=== PATIENT | male | born 1980 | race Caucasian/White ===

== ENCOUNTER 2017-08-11 03:24 | Inpatient (IN) | payer OTHER ==
[~2017-08-11] VITALS: Ht 185.4 cm; Wt 81.9 kg
[2017-08-11] VITALS (19 sets, daily range): BP systolic 90–112; BP diastolic 43–71; PULSE 44–104; RESP 16–20; TEMP 98.1–100.1; O2SAT 92–100
[2017-08-11] MEDS ORDERED: CYCLOBENZAPRINE HCL 10 MG TAB PO ONE (03:45)
[2017-08-11] MEDS ORDERED: KETOROLAC TROMETHAMINE 30 MG/ML (IVP) VIAL IV PUSH ONE (03:45)
[2017-08-11] MEDS ORDERED: SODIUM CHLOR 0.9% 1000 ML INJ 1,000 ML IV ONE (03:45)
--- NOTE | 2017-08-11 04:06 | RADRPT ---
EXAM DATE/TIME: 08/11/2017 03:51 [facility] COMPARISON: No previous studies available for comparison. INDICATIONS : Chest pain. MEDICAL HISTORY : None. SURGICAL HISTORY : None. ENCOUNTER: Initial ACUITY: 1 day PAIN SCORE: 8/10 LOCATION: Bilateral upper chest FINDINGS: The cardiac silhouette is enlarged in transverse diameter. There is subsegmental atelectasis in the l eft base. A small right sided effusion is present. There is an abnormal right heart border which may be related to enlarged pulmonary artery. CT scan is recommended for further evaluation if clinically indicated. CONCLUSION: 1. Cardiomegaly 2. Left lower lobe atelectasis versus pneumonia. 3. Small right effusion 4. Abnormal right heart border is above. CT scan is recommended for further evaluation if clinically indicated. José Miguel Hassan MD on August 11, 2017 at 4:01 Board Certified Radiologist. This report was verified electronically.
[2017-08-11 04:12] LABS: AUTOMATED NEUTROPHIL # 11.8 TH/MM3 (1.8-7.7); BASOPHIL # 0.1 TH/MM3 (0-0.2); EOSINOPHIL # 0.1 TH/MM3 (0-0.4); EOSINOPHIL % 0.4 % (0.0-4.0); HEMATOCRIT 23.2 % (39.0-51.0); LYMPH % 6.2 % (9.0-44.0); LYMPHOCYTE # 0.9 TH/MM3 (1.0-4.8); MEAN PLATELET VOLUME 7.3 FL (7.0-11.0); MONO % 12.3 % (0.0-8.0); MONOCYTE # 1.8 TH/MM3 (0-0.9); NEUT % 80.1 % (16.0-70.0); PLATELET COUNT 301 TH/MM3 (150-450); RED BLOOD COUNT 3.57 MIL/MM3 (4.50-5.90); RED CELL DISTRIBUTION WIDTH 16.3 % (11.6-17.2); WHITE BLOOD COUNT 14.7 TH/MM3 (4.0-11.0)
[2017-08-11 04:13] LABS: MEAN CORPUSCULAR HGB CONC 29.2 % (32.0-36.0)
[2017-08-11 04:14] LABS: HEMOGLOBIN 6.8 GM/DL (13.0-17.0)
[2017-08-11] MEDS ORDERED: SODIUM CHLOR 0.9% 250 ML INJ 250 ML IV ONE (04:15)
[2017-08-11 04:23] LABS: CHLORIDE 103 MEQ/L (98-107); SODIUM (NA) 137 MEQ/L (136-145)
[2017-08-11 04:26] LABS: ALBUMIN 3.5 GM/DL (3.4-5.0); BICARBONATE 26.8 MEQ/L (21.0-32.0); CALCIUM 8.2 MG/DL (8.5-10.1)
[2017-08-11 04:27] LABS: BLOOD UREA NITROGEN 24 MG/DL (7-18); GLUCOSE,RANDOM 133 MG/DL (74-106)
[2017-08-11 04:29] LABS: ALT (GPT) 17 U/L (12-78)
[2017-08-11 04:30] LABS: AST (GOT) 13 U/L (15-37); CREATININE 0.63 MG/DL (0.60-1.30); GLOMERULAR FILTRATION RATE 146 ML/MIN (>89)
[2017-08-11 04:31] LABS: TOTAL BILIRUBIN ADULT 0.4 MG/DL (0.2-1.0); TOTAL PROTEIN 6.8 GM/DL (6.4-8.2)
[2017-08-11 04:32] LABS: ALKALINE PHOSPHATASE 41 U/L (45-117)
[2017-08-11 04:34] LABS: TROPONIN I LESS THAN 0.02 NG/ML (0.02-0.05)
[2017-08-11 04:53] LABS: OVALOCYTES 1+ (NORMAL)
[2017-08-11] MEDS ORDERED: IOHEXOL 350 MG/ML 10 ML VIAL (for RAD DIAG) IVCONTRAST ONE ×2 (04:54→17:52)
--- NOTE | 2017-08-11 05:10 | PD ---
HPI Chief Complaint: Musculoskeletal Complaint Time Seen by Provider: 03:41 Travel History International Travel<30 days: No Contact w/Intl Traveler<30days: No Traveled to known affect area: No History of Present Illness HPI Patient is a 36 year old male who comes in complaining of shoulder pain. He says his shoulders have been hurting for the past few days. He went to an orthopedic surgeon who told him he had "severe bicep tendonitis" and injected both shoulders with steroids. He says yesterday he felt a little better, but today he felt much worse. He also complains of chest pain and chills. He says he has some shortness of breath and overall feels badly. He says he thinks he had a fever, but has not taken his temperature. Nothing relieves his symptoms. PFSH Past Medical History Tetanus Vaccination: Unknown Influenza Vaccination: No Social History Alcohol Use: No Tobacco Use: Yes (.5 PPD) Substance Use: Yes (Marijuana nightly) Allergies-Medications (Allergen,Severity, Reaction): Coded Allergies: No Known Drug Allergies (Verified Allergy, Unknown, 08/11/17) Reported Meds & Prescriptions Reported Meds & Active Scripts Active Reported Buspirone (Buspirone HCl) 15 Mg Tab 15 Mg PO BID Methylprednisolone Dosepak (Methylprednisolone) 4 Dspk 4 Mg PO DIRECTED Per Pharmacist Direction Celebrex (Celecoxib) 200 Mg Cap 200 Mg PO BID Levothyroxine (Levothyroxine Sodium) 88 Mcg Tab 88 Mcg PO DAILY Lexapro (Escitalopram Oxalate) 20 Mg Tab 20 Mg PO DAILY Review of Systems Except as stated in HPI: all other systems reviewed are Neg General / Constitutional: Positive: Fever HENT: No: Headaches, Lightheadedness Cardiovascular: Positive: Chest Pain or Discomfort Respiratory: Positive: Cough Gastrointestinal: Positive: Nausea, No: Diarrhea, Abdominal Pain Genitourinary: No: Flank Pain Musculoskeletal: Positive: Myalgias, No: Edema Skin: No Rash, No Change in Pigmentation Neurologic: No: Weakness, Dizziness Physical Exam Narrative GENERAL: Awake and alert, in no acute distress. SKIN: Focused skin assessment warm/dry. HEAD: Atraumatic. Normocephalic. EYES: Pupils equal and round. No scleral icterus. ENT: Mucous membranes pink and moist. NECK: Trachea midline. No JVD. CARDIOVASCULAR: Regular rate and rhythm. No murmur appreciated. RESPIRATORY: No accessory muscle use. Clear to auscultation. Breath sounds equal bilaterally. GASTROINTESTINAL: Abdomen soft, non-tender, nondistended. MUSCULOSKELETAL: No obvious deformities. No clubbing. No cyanosis. No edema. NEUROLOGICAL: Awake and alert. No obvious cranial nerve deficits. Motor grossly within normal limits. Normal speech. PSYCHIATRIC: Appropriate mood and affect; insight and judgment normal. Data Data Last Documented VS Vital Signs Date Time Temp Pulse Resp B/P (MAP) Pulse Ox O2 Delivery O2 Flow Rate FiO2 08/11/17 05:10 76 16 104/68 (80) 98 Room Air 08/11/17 03:28 98.9 Orders Orders Iv Access Insert/Monitor (08/11/17 03:45) Complete Blood Count With Diff (08/11/17 03:45) Comprehensive Metabolic Panel (08/11/17 03:45) Creatine Kinase (Cpk) (08/11/17 03:45) Troponin I (08/11/17 03:45) Electrocardiogram (08/11/17 ) Influenzae A/B Antigen (08/11/17 03:45) Chest, Pa & Lat (08/11/17 ) Sodium Chlor 0.9% 1000 Ml Inj (Ns 1000 M (08/11/17 03:45) Ketorolac Inj (Toradol Inj) (08/11/17 03:45) Cyclobenzaprine (Flexeril) (08/11/17 03:45) Ct Pulmonary Angiogram (08/11/17 04:12) Type And Screen (08/11/17 04:15) Red Blood Cells (Rbc) (08/11/17 04:15) Blood Product Administration (08/11/17 04:15) Sodium Chlor 0.9% 250 Ml Inj (Ns 250 Ml (08/11/17 04:15) Iohexol 350 Inj (Omnipaque 350 Inj) (08/11/17 04:54) Morphine Inj (Morphine Inj) (08/11/17 05:30) Act Partial Throm Time (Ptt) (08/11/17 05:34) Prothrombin Time / Inr (Pt) (08/11/17 05:34) Echo Transesophageal (08/11/17 ) Consult Cardiology (08/11/17 ) Admit Order (Ed Use Only) (08/11/17 ) Labs Laboratory Tests Test 08/11/17 04:00 White Blood Count 14.7 TH/MM3 Red Blood Count 3.57 MIL/MM3 Hemoglobin 6.8 GM/DL Hematocrit 23.2 % Mean Corpuscular Volume 65.0 FL Mean Corpuscular Hemoglobin 19.0 PG Mean Corpuscular Hemoglobin Concent 29.2 % Red Cell Distribution Width 16.3 % Platelet Count 301 TH/MM3 Mean Platelet Volume 7.3 FL Neutrophils (%) (Auto) 80.1 % Lymphocytes (%) (Auto) 6.2 % Monocytes (%) (Auto) 12.3 % Eosinophils (%) (Auto) 0.4 % Basophils (%) (Auto) 1.0 % Neutrophils # (Auto) 11.8 TH/MM3 Lymphocytes # (Auto) 0.9 TH/MM3 Monocytes # (Auto) 1.8 TH/MM3 Eosinophils # (Auto) 0.1 TH/MM3 Basophils # (Auto) 0.1 TH/MM3 CBC Comment AUTO DIFF Differential Comment AUTO DIFF CONFIRMED Platelet Estimate NORMAL Platelet Morphology Comment NORMAL Ovalocytes 1+ Blood Urea Nitrogen 24 MG/DL Creatinine 0.63 MG/DL Random Glucose 133 MG/DL Total Protein 6.8 GM/DL Albumin 3.5 GM/DL Calcium Level 8.2 MG/DL Alkaline Phosphatase 41 U/L Aspartate Amino Transf (AST/SGOT) 13 U/L Alanine Aminotransferase (ALT/SGPT) 17 U/L Total Bilirubin 0.4 MG/DL Sodium Level 137 MEQ/L Potassium Level 3.6 MEQ/L Chloride Level 103 MEQ/L Carbon Dioxide Level 26.8 MEQ/L Anion Gap 7 MEQ/L Estimat Glomerular Filtration Rate 146 ML/MIN Total Creatine Kinase 32 U/L Troponin I LESS THAN 0.02 NG/ML [facility] Medical Decision Making Medical Screen Exam Complete: Yes Emergency Medical Condition: Yes Medical Record Reviewed: Yes Interpretation(s) ECG shows NSR at 88, no ST elevation or depression, incomplete RBBB. Differential Diagnosis muscle strain vs pneumonia vs influenza Narrative Course Patient is a 36-year-old male who comes in complaining of severe shoulder pain as well as body aches and shortness of breath with chest pain. Exam shows no acute abnormalities. IV established, labs sent. Blood pressure is on the lower side, 97 systolic. Given IV fluids with some improvement of his blood pressure. Given Toradol and Flexeril for his shoulder pain. Chest x-ray was performed, appeared abnormal and CT of the chest was recommended. The CT of the chest performed showed a large pericardial effusion. Labs are concerning for a hemoglobin of 6.8. Blood transfusion was ordered. He says he was admitted to [facility] several months ago with pneumonia and anemia and required a transfusion. He reports then having endoscopy and colonoscopy and no source for the anemia was ever found. I spoke with Dr. Willett of CT surgery who suggests transfer to the [facility], stat echo and eventual drainage of the fluid. Patient admitted to the ICU. Diagnosis Primary Impression: Pericardial effusion Additional Impression: Anemia Qualified Codes: D64.9 - Anemia, unspecified Abbey Alcaraz MD Aug 11, 2017 05:10
[2017-08-11] MEDS ORDERED: MORPHINE SULFATE 2 MG/ML INJ IV PUSH ONE ×2 (05:30→07:45)
--- NOTE | 2017-08-11 05:32 | RADRPT ---
EXAM DATE/TIME: 08/11/2017 04:37 [facility] COMPARISON: CHEST PA & LAT, August 11, 2017, 3:51. INDICATIONS : Chest pain IV CONTRAST: 50 cc cc \ IV RADIATION DOSE: 39.2 CTDIvol (mGy) MEDICAL HISTORY : None SURGICAL HISTORY : 9 ENCOUNTER: Initial ACUITY: One day PAIN SCALE: 8/10 LOCATION: Chest8 TECHNIQUE: Volumetric scanning of the chest was performed using a pulmonary embolism protocol MIP images were re constructed. Using automated exposure control and adjustment of the mA and/or kV according to patien t size, radiation dose was kept as low as reasonably achievable to obtain optimal diagnostic quality images. DICOM format image data is available electronically for review and comparison. Follow-up recommendations for detected pulmonary nodules are based at a minimum on nodule size and pa tient risk factors according to Fleischner Society Guidelines. FINDINGS: Examination of the pulmonary vasculature demonstrates good filling of the main, lobar and segmental b ranches. There are no filling defects to suggest pulmonary embolism. Multiplanar reconstructions are also unremarkable. No pulmonary nodules are identified. A small right sided effusion is present. There is subsegmental a telectasis in the right base. There is a large pericardial effusion displacing the heart anteriorly a nd along the right heart border. This would be amenable to thoracentesis. CONCLUSION: 1. No evidence of pulmonary embolism. 2. Large pericardial effusion. José Miguel Hassan MD on August 11, 2017 at 5:25 Board Certified Radiologist. This report was verified electronically.
[2017-08-11] MEDS ORDERED: LEXA20TA PO (05:40)
[2017-08-11] MEDS ORDERED: CELE200C PO (05:42)
[2017-08-11] MEDS ORDERED: BUSP15TA PO (05:42)
[2017-08-11] MEDS ORDERED: LEVO88TA2 PO (05:42)
[2017-08-11] MEDS ORDERED: METH4PAK PO (05:42)
[2017-08-11 06:01] LABS: INTERNATIONAL NORMALIZED RATIO 1.1 RATIO; PROTHROMBIN TIME - PATIENT 11.3 SEC (9.8-11.6)
[2017-08-11] MEDS ORDERED: BISACODYL 10 MG SUPP RECTAL PRN (06:45)
[2017-08-11] MEDS ORDERED: POTASSIUM CHLORIDE 25 MEQ EFFERVESCENT TAB PO PRN (06:45)
[2017-08-11] MEDS ORDERED: LACTULOSE SYRUP 20 GM/30 ML CUP PO PRN (06:45)
[2017-08-11] MEDS ORDERED: MAGNESIUM SULFATE INJ 4 GM in SODIUM CHLORIDE 0.9% INJ 92 ML IV PRN (06:45)
[2017-08-11] MEDS ORDERED: GLUCAGON 1 MG/ML VIAL OTHER PRN (06:45)
[2017-08-11] MEDS ORDERED: POTASSIUM CHLOR 40 MEQ PREMIX 100 ML IV PRN ×2 (06:45)
[2017-08-11] MEDS ORDERED: RESP: ALBUTEROL 2.5 MG/IPRATROPIUM 0.5 MG NEB (PRN) INH (06:45)
[2017-08-11] MEDS ORDERED: POTASSIUM PHOSPHATE MONOBASIC 500 MG TAB PO/TUBE PRN (06:45)
[2017-08-11] MEDS ORDERED: POTASSIUM PHOSPHATE MONOBASIC 500 MG TAB PO PRN (06:45)
[2017-08-11] MEDS ORDERED: SENNOSIDES 8.6 MG TAB PO PRN (06:45)
[2017-08-11] MEDS ORDERED: ACETAMINOPHEN 325 MG TAB PO PRN (06:45)
[2017-08-11] MEDS ORDERED: DEXTROSE 50% IN WATER 50 ML VIAL(D50) IV PUSH PRN (06:45)
[2017-08-11] MEDS ORDERED: POTASSIUM CHLOR 20 MEQ PREMIX 100 ML IV PRN ×2 (06:45)
[2017-08-11] MEDS ORDERED: MAGNESIUM SULFATE INJ 2 GM in SODIUM CHLORIDE 0.9% INJ 96 ML IV PRN (06:45)
[2017-08-11] MEDS ORDERED: SODIUM PHOSPHATE INJ 30 MMOL in SODIUM CHLOR 0.9% 250 ML INJ 240 ML IV PRN (06:45)
[2017-08-11] MEDS ORDERED: POTASSIUM PHOSPHATE INJ 30 MMOL in SODIUM CHLOR 0.9% 250 ML INJ 250 ML IV PRN (06:45)
[2017-08-11] MEDS ORDERED: MAGNESIUM HYDROXIDE SUSP 30 ML CUP PO PRN (06:45)
[2017-08-11] MEDS ORDERED: MISCELLANEOUS NURSING INFORMATION XX SCH (06:45)
[2017-08-11] MEDS ORDERED: MAGNESIUM OXIDE 400 MG TAB PO PRN (06:45)
[2017-08-11] MEDS ORDERED: CHLORHEXIDINE GLUCONATE 2 % 1 PACK (2 CLOTHS) TOP PRN (06:45)
[2017-08-11] MEDS ORDERED: SODIUM CHLORIDE 0.9% FLUSH 10 ML FLUSH IV FLUSH PRN (06:45)
[2017-08-11] MEDS: SODIUM CHLORIDE 0.9% FLUSH 10 ML FLUSH IV FLUSH SCH ×2 (07:39→20:37)
--- NOTE | 2017-08-11 07:41 | PD.CONS ---
HPI Consult Requested By Primary Care Physician Andrew Alonso DO History of Present Illness 36-year-old male with past medical history of hypothyroidism, biceps tendinitis , alcoholic pancreatitis, pleural effusions who presented for shoulder/neck/ chest pain. The patient states that he's been having pain in his shoulders and chest intermittently for the past several months with associated shortness of breath. He has been seeing orthopedics for the shoulder pain. He states he did have pleural effusions in the past secondary to alcoholic pancreatitis, currently recovering alcoholic. He states that yesterday he was feeling quite poorly with severe worsening of the pain as well as fever, chills, nausea and he presented to the ED. He had an abnormal chest x-ray with a chest CT recommended which showed large pericardial effusion. The patient denies any history of pericardial effusion in the past. He states he's never had an echocardiogram. He was also found to be anemic and is currently receiving transfusion, denies being on blood thinners. The patient is being transferred to the main hospital for echocardiogram and likely drainage of pericardial effusion. (Jacky Esqueda) Review of Systems Negative except as stated in history of present illness (Jacky Esqueda) Past Family Social History Allergies: Coded Allergies: No Known Drug Allergies (Verified Allergy, Unknown, 08/11/17) Past Medical History Hypothyroidism Biceps tendinitis History of alcoholic pancreatitis with associated pleural effusions Past Surgical History Endoscopy Reported Medications Reported Meds & Active Scripts Active Reported Buspirone (Buspirone HCl) 15 Mg Tab 15 Mg PO BID Methylprednisolone Dosepak (Methylprednisolone) 4 Dspk 4 Mg PO DIRECTED Per Pharmacist Direction Celebrex (Celecoxib) 200 Mg Cap 200 Mg PO BID Levothyroxine (Levothyroxine Sodium) 88 Mcg Tab 88 Mcg PO DAILY Lexapro (Escitalopram Oxalate) 20 Mg Tab 20 Mg PO DAILY Active Ordered Medications Current Medications Medications (Trade) Dose Ordered Sig/Sophie Route Start Time Stop Time Status Last Admin Sodium Chloride 250 ml @ 15 mls/hr ONCE ONCE IV 08/11/17 04:15 08/11/17 20:54 08/11/17 07:13 Sodium Chloride 1,000 ml @ 100 mls/hr Q10H IV 08/11/17 06:34 (NS Flush) 2 ml UNSCH PRN IV FLUSH 08/11/17 06:45 (NS Flush) 2 ml BID IV FLUSH 08/11/17 09:00 (Tylenol) 650 mg Q6H PRN PO 08/11/17 06:45 (Pepcid Inj) 20 mg Q12HR IV PUSH 08/11/17 09:00 (Zofran Inj) 4 mg Q6H PRN IV PUSH 08/11/17 06:45 (Duoneb Neb) 1 ampule Q4HR NEB PRN INH 08/11/17 06:45 Miscellaneous Information 1 Q361D XX 08/11/17 06:45 (Chlorhexidine 2% Cloth) 3 pack Taper DAILY@04 TOP 08/12/17 04:00 08/08/18 03:59 (Chlorhexidine 2% Cloth) 3 pack UNSCH PRN TOP 08/11/17 06:45 (Yolanda-Colace) 1 tab BID PO 08/11/17 09:00 (Milk Of Magnesia Liq) 30 ml Q12H PRN PO 08/11/17 06:45 (Senokot) 17.2 mg Q12H PRN PO 08/11/17 06:45 (Dulcolax Supp) 10 mg DAILY PRN RECTAL 08/11/17 06:45 (Lactulose Liq) 30 ml DAILY PRN PO 08/11/17 06:45 (D50w (Vial) Inj) 50 ml UNSCH PRN IV PUSH 08/11/17 06:45 (Glucagon Inj) 1 mg UNSCH PRN OTHER 08/11/17 06:45 (NovoLOG SUPPLEMENTAL SCALE) 1 ACHS SLIDING SCALE SQ 08/11/17 08:00 Potassium Chloride 100 ml @ 50 mls/hr Q2H PRN IV 08/11/17 06:45 Potassium Chloride 100 ml @ 50 mls/hr Q2H PRN IV 08/11/17 06:45 (K-Lyte Cl Eff) 50 meq UNSCH PRN PO 08/11/17 06:45 Potassium Chloride 100 ml @ 25 mls/hr UNSCH PRN IV 08/11/17 06:45 Potassium Chloride 100 ml @ 50 mls/hr Q2H PRN IV 08/11/17 06:45 Magnesium Sulfate 4 gm/Sodium Chloride 100 ml @ 50 mls/hr UNSCH PRN IV 08/11/17 06:45 (Mag-Ox) 800 mg UNSCH PRN PO 08/11/17 06:45 Magnesium Sulfate 2 gm/Sodium Chloride 100 ml @ 50 mls/hr UNSCH PRN IV 08/11/17 06:45 (K-Phos) 2,000 mg Q4H PRN PO 08/11/17 06:45 Sodium Phosphate 30 mmol/Sodium Chloride 250 ml @ 42 mls/hr UNSCH PRN IV 08/11/17 06:45 (K-Phos) 2,000 mg UNSCH PRN PO/TUBE 08/11/17 06:45 Potassium Phosphate 30 mmol/ Sodium Chloride 260 ml @ 42 mls/hr UNSCH PRN IV 08/11/17 06:45 Social History Recovering alcoholic Admits to half pack daily tobacco use (Jacky Esqueda) Physical Exam Vital Signs Vital Signs Date Time Temp Pulse Resp B/P (MAP) Pulse Ox O2 Delivery O2 Flow Rate FiO2 08/11/17 07:22 98 Nasal Cannula 2.00 08/11/17 07:18 99.1 68 16 94/45 97 08/11/17 07:17 18 08/11/17 07:16 18 08/11/17 07:07 99.1 88 18 90/43 97 08/11/17 06:56 99.1 66 18 90/43 (59) 97 Room Air 08/11/17 06:52 79 08/11/17 06:11 74 16 97/54 (68) 97 Room Air 08/11/17 05:10 76 16 104/68 (80) 98 Room Air 08/11/17 03:39 69 16 102/62 (75) 99 08/11/17 03:28 98.9 104 20 98/61 (73) 100 Physical Exam GENERAL: Well-developed well-nourished. In no acute distress. NECK: No carotid bruits. No JVD. CARDIOVASCULAR: Regular rate and rhythm. No murmur appreciated. RESPIRATORY: No accessory muscle use. Clear to auscultation. Breath sounds equal bilaterally. MUSCULOSKELETAL: No clubbing or cyanosis. No edema. NEUROLOGICAL: Awake and alert. Normal speech. Laboratory Laboratory Tests Test 08/11/17 04:00 White Blood Count 14.7 Red Blood Count 3.57 Hemoglobin 6.8 Hematocrit 23.2 Mean Corpuscular Volume 65.0 Mean Corpuscular Hemoglobin 19.0 Mean Corpuscular Hemoglobin Concent 29.2 Red Cell Distribution Width 16.3 Platelet Count 301 Mean Platelet Volume 7.3 Neutrophils (%) (Auto) 80.1 Lymphocytes (%) (Auto) 6.2 Monocytes (%) (Auto) 12.3 Eosinophils (%) (Auto) 0.4 Basophils (%) (Auto) 1.0 Neutrophils # (Auto) 11.8 Lymphocytes # (Auto) 0.9 Monocytes # (Auto) 1.8 Eosinophils # (Auto) 0.1 Basophils # (Auto) 0.1 CBC Comment AUTO DIFF Differential Comment AUTO DIFF CONFIRMED Platelet Estimate NORMAL Platelet Morphology Comment NORMAL Ovalocytes 1+ Prothrombin Time 11.3 Prothromb Time International Ratio 1.1 Activated Partial Thromboplast Time 20.4 Blood Urea Nitrogen 24 Creatinine 0.63 Random Glucose 133 Total Protein 6.8 Albumin 3.5 Calcium Level 8.2 Alkaline Phosphatase 41 Aspartate Amino Transf (AST/SGOT) 13 Alanine Aminotransferase (ALT/SGPT) 17 Total Bilirubin 0.4 Sodium Level 137 Potassium Level 3.6 Chloride Level 103 Carbon Dioxide Level 26.8 Anion Gap 7 Estimat Glomerular Filtration Rate 146 Phosphorus Level 3.3 Total Creatine Kinase 32 Troponin I LESS THAN 0.02 Thyroid Stimulating Hormone 3rd Gen 2.280 Date/Time Source Procedure Growth Status 08/11/17 04:00 Nasal Washing Influenza Types A,B Antigen (ALIYA) - Final NEGATIVE FOR FLU A AND B ANTIGEN.... Complete (Jacky Esqueda) Result Diagram: 08/11/17 0400 08/11/17 [address] Angiography 08/11/17 0412 Signed Impressions: Service Date/Time: Friday, August 11, 2017 04:37 - CONCLUSION: 1. No evidence of pulmonary embolism. 2. Large pericardial effusion. José Miguel Hassan MD Chest X-Ray 08/11/17 0000 Signed Impressions: Service Date/Time: Friday, August 11, 2017 03:51 - CONCLUSION: 1. Cardiomegaly 2. Left lower lobe atelectasis versus pneumonia. 3. Small right effusion 4. Abnormal right heart border is above. CT scan is recommended for further evaluation if clinically indicated. José Miguel Hassan MD (Jacky Esqueda) Assessment and Plan Assessment and Plan 36-year-old male with past medical history of hypothyroidism, biceps tendinitis , alcoholic pancreatitis, pleural effusions who presented for shoulder/neck/ chest pain Pleural effusion: With atypical chest pain and shortness of breath. Per ED note , patient discussed with CT surgery who recommended transfer to the main hospital for stat echocardiogram and likely drainage of effusion. Anemia: Currently receiving transfusion. Hold NSAIDs and steroids. (Jacky Esqueda) Assessment and Plan echo - small effusion. normal ef. no tamponade. no need for any intervention from cardio standpoint will sign off call with further questions (Timur Bolden MD) Jacky Esqueda Aug 11, 2017 07:41 Timur Bolden MD Aug 11, 2017 12:33
[2017-08-11] MEDS: INSULIN ASPART SUPPLEMENTAL SCALE SQ SCH ×4 (08:00→20:37)
[2017-08-11] MEDS: DOCUSATE SODIUM 50 MG/SENNA 8.6 MG TAB PO SCH ×2 (09:00→20:37)
[2017-08-11 09:42] LABS: FREE T4 1.19 NG/DL (0.76-1.46)
--- NOTE | 2017-08-11 09:45 | HHI.HP ---
HPI Service Critical Care Medicine Primary Care Physician Andrew Alonso, DO Admission Diagnosis Anemia, pericardial effusion Diagnosis: (1) Leukocytosis Diagnosis: Principal (2) Hypothyroidism Diagnosis: Secondary (3) Tobacco abuse disorder Diagnosis: Secondary (4) Depression Diagnosis: Secondary (5) Tetrahydrocannabinol (THC) use disorder, mild, abuse Diagnosis: Secondary Travel History International Travel<30 Days: No Contact w/Intl Traveler <30 Da: No Traveled to Known Affected Are: No History of Present Illness This is a 36 year old male that presented to the ED, [facility] complaining of B/L shoulder pain. Per report patient stated that his shoulders have been hurting for the past few days. He went to an orthopedic surgeon who told him he had "severe bicep tendonitis" and injected both shoulders with steroids, and provided him with a Celebrex prescription. Upon further inquiry/ evaluation at [facility], the patient noted that he had been having B/L shoulder pain for approximately 8 months. The patient's medical history is significant for pancreatitis, last hospitalized 02/2016, at [facility]. In addition, the patient's medical history includes a previous admission for anemia and he was recently hospitalized January 2017 at [facility], and received 2 units of packed red blood cells, was evaluated by GI with an EGD and colonscopy with negative findings. The patient was discharged and no further workup for the anemia was provided. After presentation to the ED, laboratory and imaging studies were performed at [place]-CT angiography chest revealed no pulmonary embolus but a large pericardial effusion at the right heart border, anemia was noted hemoglobin of 6.8, and leukocytosis 14.7. The patient received 1 unit of packed red blood cells, cardiology Dr. Bolden was consulted, CTS Dr. Willett was consulted by Dr. Alcaraz, ED physician. In addition to the patient' s history of previous episodes of anemia and pancreatitis his medical history significant for hypothyroidism, marijuana use depression, GERD and a history of EtOH abuse with last reported ETOH consumption 09/2016. The patient was stat transported to [facility]. Echo obtained results pending. Critical care medicine was consulted. History PFSH Past Medical History Tetanus Vaccination: Unknown Influenza Vaccination: No Social History Alcohol Use: No Tobacco Use: Yes (.5 PPD) Substance Use: Yes (Marijuana nightly) Allergies-Medications Allergies-Medications (Allergen,Severity, Reaction): Coded Allergies: No Known Drug Allergies (Verified Allergy, Unknown, 08/11/17) Reported Meds & Prescriptions Reported Meds & Active Scripts Active Reported Buspirone (Buspirone HCl) 15 Mg Tab 15 Mg PO BID Methylprednisolone Dosepak (Methylprednisolone) 4 Dspk 4 Mg PO DIRECTED Per Pharmacist Direction Celebrex (Celecoxib) 200 Mg Cap 200 Mg PO BID Levothyroxine (Levothyroxine Sodium) 88 Mcg Tab 88 Mcg PO DAILY Lexapro (Escitalopram Oxalate) 20 Mg Tab 20 Mg PO DAILY ROS Review of Systems Except as stated in HPI: all other systems reviewed are Neg General / Constitutional: Positive: Fever HENT: No: Headaches, Lightheadedness Cardiovascular: Positive: Chest Pain or Discomfort Respiratory: Positive: Cough Gastrointestinal: Positive: Nausea, No: Diarrhea, Abdominal Pain Genitourinary: No: Flank Pain Musculoskeletal: Positive: Myalgias, No: Edema Skin: No Rash, No Change in Pigmentation Neurologic: No: Weakness, Dizziness Past Family Social History Allergies: Coded Allergies: No Known Drug Allergies (Verified Allergy, Unknown, 08/11/17) Physical Exam Vital Signs Vital Signs Date Time Temp Pulse Resp B/P (MAP) Pulse Ox O2 Delivery O2 Flow Rate FiO2 08/11/17 08:25 67 08/11/17 08:25 93 Nasal Cannula 2.00 08/11/17 08:25 98.8 64 16 107/64 94 08/11/17 08:25 98.8 64 16 107/64 (78) 94 08/11/17 07:41 70 16 112/54 (73) 99 Nasal Cannula 2.00 08/11/17 07:22 98 Nasal Cannula 2.00 08/11/17 07:18 99.1 68 16 94/45 97 08/11/17 07:17 18 08/11/17 07:16 18 08/11/17 07:07 99.1 88 18 90/43 97 08/11/17 06:56 99.1 66 18 90/43 (59) 97 Room Air 08/11/17 06:52 79 08/11/17 06:11 74 16 97/54 (68) 97 Room Air 08/11/17 05:10 76 16 104/68 (80) 98 Room Air 08/11/17 03:39 69 16 102/62 (75) 99 08/11/17 03:28 98.9 104 20 98/61 (73) 100 Physical Exam GENERAL: This is a 36-year-old thin male in moderate distress secondary to pain in bilateral shoulders SKIN: Warm and dry. HEAD: Atraumatic. Normocephalic. EYES: Pupils equal and round. No scleral icterus. No injection or drainage. ENT: No nasal bleeding or discharge. Mucous membranes pink and moist. NECK: Trachea midline. No JVD. CARDIOVASCULAR: Normal rate, regular rhythm. Telemetry normal sinus rhythm, systolic blood pressure low 100's RESPIRATORY: No accessory muscle use. Clear to auscultation. Breath sounds equal bilaterally. No dyspnea noted GASTROINTESTINAL: Abdomen soft, non-tender, nondistended. No guarding. MUSCULOSKELETAL: Extremities without clubbing, cyanosis, or edema. No obvious deformities. NEUROLOGICAL: GCS 15 Awake and alert. RASS 0. No gross focal/sensory deficits. Follows commands in all 4 extremities. Laboratory Laboratory Tests Test 08/11/17 04:00 White Blood Count 14.7 Red Blood Count 3.57 Hemoglobin 6.8 Hematocrit 23.2 Mean Corpuscular Volume 65.0 Mean Corpuscular Hemoglobin 19.0 Mean Corpuscular Hemoglobin Concent 29.2 Red Cell Distribution Width 16.3 Platelet Count 301 Mean Platelet Volume 7.3 Neutrophils (%) (Auto) 80.1 Lymphocytes (%) (Auto) 6.2 Monocytes (%) (Auto) 12.3 Eosinophils (%) (Auto) 0.4 Basophils (%) (Auto) 1.0 Neutrophils # (Auto) 11.8 Lymphocytes # (Auto) 0.9 Monocytes # (Auto) 1.8 Eosinophils # (Auto) 0.1 Basophils # (Auto) 0.1 CBC Comment AUTO DIFF Differential Comment AUTO DIFF CONFIRMED Platelet Estimate NORMAL Platelet Morphology Comment NORMAL Ovalocytes 1+ Prothrombin Time 11.3 Prothromb Time International Ratio 1.1 Activated Partial Thromboplast Time 20.4 Blood Urea Nitrogen 24 Creatinine 0.63 Random Glucose 133 Total Protein 6.8 Albumin 3.5 Calcium Level 8.2 Alkaline Phosphatase 41 Aspartate Amino Transf (AST/SGOT) 13 Alanine Aminotransferase (ALT/SGPT) 17 Total Bilirubin 0.4 Sodium Level 137 Potassium Level 3.6 Chloride Level 103 Carbon Dioxide Level 26.8 Anion Gap 7 Estimat Glomerular Filtration Rate 146 Phosphorus Level 3.3 Total Creatine Kinase 32 Troponin I LESS THAN 0.02 Free Thyroxine 1.19 Thyroid Stimulating Hormone 3rd Gen 2.280 Date/Time Source Procedure Growth Status 08/11/17 04:00 Nasal Washing Influenza Types A,B Antigen (ALIYA) - Final NEGATIVE FOR FLU A AND B ANTIGEN.... Complete Result Diagram: 08/11/17 0400 08/11/17 [address] Angiography 08/11/17 0412 Signed Impressions: Service Date/Time: Friday, August 11, 2017 04:37 - CONCLUSION: 1. No evidence of pulmonary embolism. 2. Large pericardial effusion. José Miguel Hassan MD Chest X-Ray 08/11/17 0000 Signed Impressions: Service Date/Time: Friday, August 11, 2017 03:51 - CONCLUSION: 1. Cardiomegaly 2. Left lower lobe atelectasis versus pneumonia. 3. Small right effusion 4. Abnormal right heart border is above. CT scan is recommended for further evaluation if clinically indicated. José Miguel Hassan MD Septic Shock Reassessment Septic shock perfusion: reassessment completed Caprini VTE Risk Assessment Caprini VTE Risk Assessment: No/Low Risk (score <= 1) Caprini Risk Assessment Model Point Value = 1 Point Value = 2 Point Value = 3 Point Value = 5 Age 41-60 Minor surgery BMI > 25 kg/m2 Swollen legs Varicose veins or History of unexplained or recurrent spontaneous Oral contraceptives or hormone replacement Sepsis (< 1 month) Serious lung disease, including pneumonia (< 1 month) Abnormal pulmonary function Acute myocardial infarction Congestive heart failure (< 1 month) History of inflammatory bowel disease Medical patient at bed rest Age 61-74 Arthroscopic surgery Major open surgery (> 45 min) Laparoscopic surgery (> 45 min) Malignancy Confined to bed (> 72 hours) Immobilizing plaster cast Central venous access Age >= 75 History of VTE Family history of VTE Factor V Leiden Prothrombin [id number] Lupus anticoagulant Anticardiolipin antibodies Elevated serum homocysteine Heparin-induced thrombocytopenia Other congenital or acquired thrombophilia Stroke (< 1 month) Elective arthroplasty Hip, pelvis, or leg fracture Acute spinal cord injury (< 1 month) Prophylaxis Regimen Total Risk Factor Score Risk Level Prophylaxis Regimen 0-1 Low Early ambulation 2 Moderate Order ONE of the following: *Sequential Compression Device (SCD) *Heparin 5000 units SQ BID 3-4 Higher Order ONE of the following medications: *Heparin 5000 units SQ TID *Enoxaparin/Lovenox 40 mg SQ daily (WT < 150 kg, CrCl > 30 mL/min) *Enoxaparin/Lovenox 30 mg SQ daily (WT < 150 kg, CrCl > 10-29 mL/min) *Enoxaparin/Lovenox 30 mg SQ BID (WT < 150 kg, CrCl > 30 mL/min) AND/OR *Sequential Compression Device (SCD) 5 or more Highest Order ONE of the following medications: *Heparin 5000 units SQ TID (Preferred with Epidurals) *Enoxaparin/Lovenox 40 mg SQ daily (WT < 150 kg, CrCl > 30 mL/min) *Enoxaparin/Lovenox 30 mg SQ daily (WT < 150 kg, CrCl > 10-29 mL/min) *Enoxaparin/Lovenox 30 mg SQ BID (WT < 150 kg, CrCl > 30 mL/min) AND *Sequential Compression Device (SCD) Assessment and Plan Assessment and Plan This is a 36-year-old male, recurrent episodes of significant anemia requiring blood transfusions, now presenting with pericardial effusion and a history significant for acute pancreatitis. Admit to ICU. Plan by systems: Neurologic: Anxiety disorder Depression THC abuse Bilateral shoulder pain Neurochecks per ICU protocol Long-acting sedative type medications Tylenol 650 mg every 6 hours when necessary for pain or temperature greater than 100.5 Obtain urine drug screen Discontinue patient's home meds Celebrex Obtain cortisol level Respiratory: Tobacco use disorder THC use/abuse disorder Respiratory insufficiency Pleural effusion Maintain O2 sat greater than 92%. Patient on 2 L nasal cannula O2 sat 94% Provide1-4 L/m nasal cannula Incentive spirometry while awake Duo nebs every 4 hours when necessary for wheezing ABGs and chest x-ray when clinically indicated Patient counseled on cessation of smoking 08/11 chest x-ray-small right-sided effusion 08/11 CT angiogram chest no PE, large pericardial effusion at right heart border Cardiovascular: Pericardial effusion Obtain stat [id number] results CTS surgery consulted-Dr. Willett 08/11 EKG-LAE, RBBB, sinus rhythm If pericardiocentesis required /performed -follow up in the immunological, and infectious lab specimens Initial troponin < 0.02 Renal: No Cuellar required at this time -- Strict I/Os FEN/GI: History of pancreatitis GERD Obtain lipase level Begin NS 100cc/hr Obtain CT angiogram of abdomen/pelvis- provided patient is clinically stable will await results of echo, concern for pseudoaneurysm, acute pancreatitis, pancreatic pseudocyst Heme/ID: Recurrent Anemia Leukocytosis Transfuse 2 units of packed red blood cells-obtain posttransfusion CBC Monitor CBC Consult hematology-oncology Obtain Anemia labs and YOLANDA Obtain blood and urine cultures Endocrine: Hypothyroidism Obtain thyroid panel Continue levothyroxin 88ug/day Glucose monitoring per ICU protocol -- SSI Prophylaxis: GI Prophylaxis Famotidine DVT Prophylaxis -- SCDs No chemical DVT prophylaxis in the setting of severe anemia Lines: IVs 2 providing adequate access. Central line if indicated Dispo: my billing statement This patient remains critically ill with one or more organ systems which are or may become a threat to life. I have spent in excess of 47 minutes discontinuously in the care and management of this patient. This time is exclusive of procedures, and includes, but is not limited to, evaluation of the patient, review of the medical record, discussions with family, consultants, nursing staff, or respiratory therapy, and documentation in the medical record. Code Status Full Discussed Condition With Dr Alcaraz, Dr. Willett, and NOUGAT CANDY MAKER HELPER at bedside (Sheila Lira RN) Problem Qualifiers (1) Depression: Nayla Almaguer MD Aug 11, 2017 09:45
[2017-08-11] MEDS: SODIUM CHLOR 0.9% 1000 ML INJ 1,000 ML IV SCH ×2 (10:00→15:36)
[2017-08-11] MEDS: FAMOTIDINE 20 MG/2 ML VIAL IV PUSH SCH ×2 (11:25→20:37)
--- NOTE | 2017-08-11 12:01 | ECHRPT ---
Indication: SHORTNESS OF BREATH CONCLUSIONS Normal left ventricular size. Mild concentric left ventricular hypertrophy. The left ventricular systolic function is grossly normal on limited imaging. [id number] mitral valve regurgitation. No hemodynamically significant echocardiographic features were observed (no pre-tamponade physiology). Trivial pulmonary valve regurgitation. There is a small pericardial effusion present. BP: 107 / 64 HR: Rhythm: Sinus MEASUREMENTS (Male / Female) Normal Values Technical Quality:Fair 2D ECHO LV Diastolic Diameter PLAX 5.4 cm 4.2 - 5.9 / 3.9 - 5.3 cm LV Systolic Diameter PLAX 3.6 cm IVS Diastolic Thickness 1.1 cm 0.6 - 1.0 / 0.6 - 0.9 cm LVPW Diastolic Thickness 1.1 cm 0.6 - 1.0 / 0.6 - 0.9 cm LV Relative Wall Thickness 0.4 RV Internal Dim ED PLAX 2.2 cm LVOT Diameter 2.4 cm Aortic Root Diameter 3.3 cm LA Systolic Diameter LX 3.3 cm 3.0 - 4.0 / 2.7 - 3.8 cm M-MODE AV Cusp Separation MM 1.8 cm DOPPLER AV Peak Velocity 182.0 cm/s AV Peak Gradient 13.2 mmHg AV Mean Gradient 7.0 mmHg AV Velocity Time Integral 33.2 cm LVOT Peak Velocity 126.0 cm/s LVOT Peak Gradient 6.4 mmHg LVOT Velocity Time Integral 19.9 cm AV Area Cont Eq vti 2.7 cm AV Area Cont Eq pk 3.1 cm Mitral E Point Velocity 93.3 cm/s Mitral A Point Velocity 64.2 cm/s Mitral E to A Ratio 1.5 LV E' Lateral Velocity 19.9 cm/s Mitral E to LV E' Lateral Ratio 4.7 LV E' Septal Velocity 12.5 cm/s Mitral E to LV E' Septal Ratio 7.5 TR Peak Velocity 270.0 cm/s TR Peak Gradient 29.2 mmHg Right Atrial Pressure 10.0 mmHg Pulmonary Artery Systolic Pressu 39.2 mmHg Right Ventricular Systolic Press 39.2 mmHg PV Peak Velocity 64.7 cm/s PV Peak Gradient 1.7 mmHg FINDINGS LEFT VENTRICLE Normal left ventricular size. Mild concentric left ventricular hypertrophy. The left ventricular systolic function is grossly normal on limited imaging. RIGHT VENTRICLE Normal right ventricular size and systolic function. LEFT ATRIUM The left atrial size is normal. RIGHT ATRIUM The right atrial size is normal. ATRIAL SEPTUM Normal atrial septal thickness without atrial level shunting by limited color doppler interrogation. AORTA The aortic root and proximal ascending aorta are normal in size on limited imaging. MITRAL VALVE Matpa-sf-eokm mitral valve regurgitation. AORTIC VALVE Trileaflet aortic valve. No aortic valve stenosis or regurgitation. TRICUSPID VALVE Structurally normal tricuspid valve. No tricuspid valve stenosis or regurgitation. PULMONARY VALVE Trivial pulmonary valve regurgitation. VESSELS The inferior vena cava is normal in size. PERICARDIUM There is a small pericardial effusion present. No hemodynamically significant echocardiographic fea tures were observed (no pre-tamponade physiology). Timur Bolden MD, FACC (Electronically Signed) Final Date:11 August 2017 12:00
--- NOTE | 2017-08-11 14:08 | EKG ---
Date Performed: 08/11/2017 Time Performed: 04:02:00 PTAGE: 36 years EKG: Sinus rhythm POSSIBLE LEFT ATRIAL ENLARGEMENT INCOMPLETE RIGHT BUNDLE BRANCH BLOCK BORDERLINE ECG NO PREVIOUS TRACING DOCTOR: Venancio Thapa Interpretating Date/Time 08/11/2017 14:07:48
[2017-08-11] MEDS ORDERED: DIATRIZOATE MEGLUM/DIATRIZOATE SOD 9 ML CUP PO ONE (14:45)
[2017-08-11 15:14] LABS: BILIRUBIN, URINE NEG (NEG); BLOOD, URINE NEG (NEG); GLUCOSE,URINE NEG (NEG); KETONE, URINE NEG (NEG); NITRITE,URINE NEG (NEG); PH, URINE 7.5 (5.0-8.5); URINE COLOR YELLOW (YELLW/STRAW); URINE LEUKOCYTE ESTERASE NEG (NEG)
--- NOTE | 2017-08-11 16:30 | MB ---
cc: ELIZABETH GARBER DATE OF CONSULTATION 08/11/2017 DATE OF 1980, 36 years old HISTORY OF THE PRESENT ILLNESS Known history of hypothyroidism, history of alcoholic pancreatitis, recurrent bilateral pleural effusions presented with shoulder, neck and chest discomfort. Also has history of biceps tendonitis, was complaining of pain in both his shoulders and chest intermittently for the past several months associated with some shortness of breath. He apparently quit drinking alcohol back in September 2016. Prior to that he had had multiple admissions for thoracentesis, pancreatitis. He was mainly also seen in [facility] in [place]. He was recently admitted for anemia and had to receive 2 units of packed Rbc's. He was worked up by [facility] and had EGD and colonoscopy which he states was negative. He also had the camera that he swallowed. He has had multiple thoracenteses, approximately 7-8 related to his alcoholic pancreatitis. He has been in and out of alcohol treatment centers in the past. He presented also with feeling poorly, severe worsening chest discomfort, chills, fevers, some nausea. The patient underwent workup which also included a chest x-ray, left lower atelectasis versus pneumonia, small right effusion, abnormal right heart border. CT scan was recommended. He underwent CTA which showed no evidence of pulmonary emboli. It showed a large pericardial effusion. This would be amenable to thoracentesis. There was concern for possible pericardial effusion. The patient underwent immediate 2-D echocardiogram which showed small pericardial effusion present. No hemodynamically significant features of pre tamponade physiology, mild left ventricular hypertrophy, left ventricular systolic function was grossly normal. We were consulted in regards to the pericardial effusion and at this time had there is no cardiovascular surgical intervention warranted at this time. The patient is being evaluated by critical care regarding the left effusion. PAST MEDICAL HISTORY The patient's past medical history as above. ALLERGIES No known allergies. MEDICATIONS Home meds include: 1. Celebrex. 2. Lexapro. 3. BuSpar. 4. Medrol Dosepak. 5. Levothyroxine. FAMILY HISTORY Noncontributory. SOCIAL HISTORY Recovering alcoholic, quit one year ago. Smokes a half-a-pack per day since age of 19. No illicit drugs. REVIEW OF SYSTEMS GENERAL: No night sweats, fever, heat and cold intolerance. SKIN: No psoriasis, itching or hives. HEENT: No blurred vision, hearing loss. RESPIRATORY: Positive for shortness of breath. Recent fever, some chills. CARDIOVASCULAR: As above in HPI. GENITOURINARY: No burning, frequency, urgency. REGISTERED PRIVATE DUTY NURSE: No history of TIA, CVA, seizure disorder. ENDOCRINE: No history of diabetes. Positive for hypothyroidism. PHYSICAL EXAMINATION VITAL SIGNS: On exam blood pressure 107/70, temperature max 100, heart rate of 78. GENERAL: Patient is awake, alert in no acute distress. He is complaining of pain above his shoulders. HEENT: Head is normocephalic, atraumatic. Pupils equal and reactive. Oral mucosa pink, moist. NECK: Supple. No JVD. CARDIOVASCULAR: Heart sounds S1-S2. Regular rate and rhythm. No audible rubs or gallops. LUNGS: Very diminished in the left lower border. ABDOMEN: Soft, nontender. No guarding. EXTREMITIES: No cyanosis, clubbing or edema. NEUROLOGIC: Alert and oriented times three. Follows all commands. No gross focal deficits. LABORATORY DATA Lab work showing a hemoglobin of 6.8, hematocrit of 24, white cell count 14, platelet count of 301. Sodium 137, potassium 3.6, BUN 24, creatinine 0.63. AST 13, ALT 17. Negative influenza A, B. IMAGING Chest x-ray, CTA as above. IMPRESSION 1. A 36 year-old with history of recovering alcoholism, prior history of pancreatitis admitted with fever, chills, bilateral shoulder pain, chest discomfort found to have a large left pleural effusion. Critical care following at this time. Evaluation for possible thoracentesis and send studies for cytology cultures. 2. Small pericardial effusion. No surgical intervention warranted at this time. Cardiology has also signed off. Troponin less than 0.02. 3. Acute anemia with recurrent anemia, leukocytosis for 2 units of packed Rbc's, hematology oncology pending. 4. History of hypothyroidism. Levels are pending. At this time no current intervention from a surgical standpoint warranted. We will follow. DICTATED BY: ABRAHAM Torres Elizabeth MD PADILLA Lira/FRANKY /2:06 PM /3:22 PM
[2017-08-11] MEDS ORDERED: Vancomycin Consult Pharmacy 1 EA OTHER SCH (16:45)
[2017-08-11] MEDS ORDERED: PIPERACIL-TAZO 3.375 GM PREMIX 50 ML IV SCH (17:00)
[2017-08-11] MEDS ORDERED: ATROPINE SULFATE 1 MG/10 ML SYRINGE ONE (17:11)
[2017-08-11] MEDS ORDERED: EPINEPHrine HCL (1:10,000) 1 MG/10 ML SYRINGE ONE (17:11)
[2017-08-11 17:14] LABS: HEMATOCRIT 23.1 % (39.0-51.0); HEMOGLOBIN 7.3 GM/DL (13.0-17.0)
[2017-08-11 17:54] LABS: RETIC # 105.8 MIL/L (20.0-150.0)
--- NOTE | 2017-08-11 18:01 | RADRPT ---
EXAM DATE/TIME: 08/11/2017 17:18 [place] COMPARISON: CT PULMONARY ANGIOGRAM, August 11, 2017, 4:37. INDICATIONS : Looking for reason for blood loss. Abnormal CT pulmonary angiogram demonstrating large pericardial ef fusion. IV CONTRAST: 75 cc Omnipaque 350 (iohexol) IV ORAL CONTRAST: Prescribed oral contrast ingested. RADIATION DOSE: 6.64 CTDIvol (mGy) MEDICAL HISTORY : None SURGICAL HISTORY : None. ENCOUNTER: Initial ACUITY: 1 day PAIN SCALE: 6/10 LOCATION: Abdomen TECHNIQUE: Volumetric scanning of the abdomen and pelvis was performed. Using automated exposure control and ad justment of the mA and/or kV according to patient size, radiation dose was kept as low as reasonably achievable to obtain optimal diagnostic quality images. DICOM format image data is available electro nically for review and comparison. FINDINGS: LOWER LUNGS: There are small bilateral pleural effusions with mild consolidation in both posterior lung bases. The re are large loculated fluid collections located along the base the heart and posterior to the heart which round portions of the distal esophagus and inferior vena cava. These extend into the upper cent ral abdomen. There is some enhancement along the periphery of these collections. The largest of these collections measures up to 8.6 x 5.3 cm in greatest transverse and AP diameter. The anterior pericar dium appears unremarkable. LIVER: Homogeneous density without lesion. There is no dilation of the biliary tree. No calcified gallston es. SPLEEN: Normal size without lesion. PANCREAS: Within normal limits. KIDNEYS: Normal in size and shape. There is no mass, stone or hydronephrosis. ADRENAL GLANDS: Within normal limits. VASCULAR: There is no aortic aneurysm. BOWEL/MESENTERY: There is a nonspecific, nonobstructive bowel gas pattern with contrast noted portions of the colon an d small bowel. There are multiple small air-fluid levels throughout the small bowel with no dilatatio n.. There is a small amount of ascitic fluid in the pelvis. ABDOMINAL WALL: Within normal limits. RETROPERITONEUM: There is no lymphadenopathy. BLADDER: No wall thickening or mass. REPRODUCTIVE: Within normal limits. INGUINAL: There is no lymphadenopathy or hernia. MUSCULOSKELETAL: Within normal limits for patient age. CONCLUSION: 1. Large complex loculated appearing fluid collections along the base of the heart and in the upper c entral abdomen. Differential diagnosis includes loculated pericardial fluid, abscess and hematoma. Tu mor is also a consideration. 2. There is a small amount of fluid in the posterior pelvis. 3. Nonspecific bowel gas pattern most consistent with an ileus. 4. Small bilateral pleural effusions with consolidation in both posterior lung bases. Harsha Garcia MD on August 11, 2017 at 17:50 Board Certified Radiologist. This report was verified electronically.
[2017-08-11] MEDS: HYDROmorphone HCL PF 2 MG/ML VIAL IV PUSH PRN ×2 (18:23→22:37)
[2017-08-11 18:39] LABS: WESTERGREN SEDIMENTATION RATE 43 mm/hr (0-15)
--- NOTE | 2017-08-11 19:58 | MB ---
cc: ANGIE GRAHAM MD DATE OF CONSULTATION 08/11/[address] Nayla Almaguer REASON FOR CONSULTATION Hematology was consulted to render an opinion regarding patient with severe anemia. HISTORY OF PRESENT ILLNESS The patient is a 89-year-old male with history of alcohol abuse and pancreatitis who presented to the hospital with complaint of worsening bilateral shoulder pain, neck pain and chest discomfort. In the emergency room, he had CT angiogram which did not show any pulmonary embolism, however, he was noted to have large pericardial effusion. He was then transferred to the cardiac unit for further evaluation. He was noted to have a hemoglobin of 6.8. He was given two units of packed red blood cell transfusion when I saw him. Apparently, he was found to have anemia in January of 2017. At that time, he was admitted to [facility] and received two units of packed red blood cell transfusion. He did not have further workup or see a loan officer. He however had EGD, colonoscopy and capsule endoscopy which reportedly were all unremarkable. He denies any family history of anemia. He was told he had anemia in January of last year. He denies any melena or hematochezia. Any dysuria or hematochezia, denies dysuria or hematuria, denies any pica symptoms. PAST MEDICAL HISTORY 1. Alcohol-induced pancreatitis. 2. Anemia as above. 3. Hypothyroidism. 4. Depression 5. Gastroesophageal reflux disease. 6. Recurrent pleural effusion. PAST SURGICAL HISTORY 1. Upper endoscopy, 2. Colonoscopy 3. Capsule endoscopy around January 2017. 4. Multiple thoracenteses FAMILY HISTORY One brother and one half-sister healthy. He has no children. Parents alive. No hematology disorder in the family. SOCIAL HISTORY Smokes half a pack a day about 17 years and quit alcohol in September 2016. 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 ALLERGIES NO KNOWN DRUG ALLERGIES. MEDICATIONS 1. Levothyroxine 2. Zosyn. 3. Pepcid 4. Yolanda-Colace. REVIEW OF SYSTEMS CONSTITUTIONAL: Generalized weakness and fatigue EYES: Negative. ENT: Negative. CARDIOVASCULAR: As above. RESPIRATORY: As above. GI: As above. : Negative. MUSCULOSKELETAL: Negative. HEMATOLOGY: As above. DERMATOLOGY: Negative. ENDOCRINE: Negative. HEMATOLOGY: Negative. PSYCHIATRIC: Negative. PHYSICAL EXAMINATION VITAL SIGNS: Temperature 100.1, blood pressure 100/62, O2 saturation 95% on 2 liters nasal cannula. GENERAL: He is alert and oriented x3 in no acute distress, a little pale. HEENT: Atraumatic, normocephalic. Pupils equal, round and reactive to light. Extraocular muscle intact. No scleral icterus. Oropharynx dry mucosa. No lesion. NECK: No thyromegaly, no palpable masses. LYMPHATIC: No palpable cervical, clavicular, axillary or inguinal lymph node CARDIOVASCULAR: Regular S1, S2, no murmur. LUNGS: Clear to auscultation anteriorly. ABDOMEN: Soft, nontender. I could not palpate liver or spleen EXTREMITIES: No cyanosis, clubbing or edema. BACK: No paravertebral tenderness. SKIN: No rash or petechiae. NEUROLOGIC: Nonfocal. LABORATORY DATA WBC 14.7. Hemoglobin 6.8m, platelet count of 301, MCV of 75. RDW of 16.3. ASSESSMENT 1. Anemia, unknown chronicity. He also has significant microcytosis with MCV of 65, however, RDW is normal. He reportedly was admitted to the hospital in January 2017 with hemoglobin around seven. He received 2 units of packed red blood cell transfusion. He had EGD, colonoscopy and capsule endoscopy which did not show any active bleeding. He did not have further anemia workup. He now presented with hemoglobin of 6.8. When I saw him, he had already received 2 units packed blood cell transfusion. He is feeling a little better. Differential diagnosis including iron deficiency and hemoglobinopathy like thalassemia. Other differential includes bone marrow disorder. At this time, we will proceed with anemia workup. Patient already received transfusion and we will try to do the blood test on the blood drawn before the blood transfusion if it is still available. 2. Shoulder pain, chest pain. CT angiogram showed large pericardial effusion, however, echocardiogram showed only a small pericardial effusion. 3. History of recurrent pleural effusion. CTA showed a small bilateral pleural effusion. 4. History of alcohol-induced pancreatitis. He has no new symptom. 5. Hypothyroidism. 6. Depression. RECOMMENDATIONS 1. Proceed with anemia workup including checking hemoglobin electrophoresis. 2. Monitor CBC 3. If patient is discharged from the hospital, he can follow up at the hematology clinic for further workup. Thank you, Dr. Almaguer, for asking me to see this patient. Redford Y. Chew, MD [facility]/ /7:17 PM /7:32 PM YULIANA
[2017-08-11] MEDS: PIPERACIL-TAZO 3.375 GM PREMIX 50 ML IV SCH (20:00)
[2017-08-11] MEDS: ACETAMINOPHEN 1000 MG/100 ML 100 ML IV SCH (20:36)
[2017-08-11 22:04] LABS: IRON (FE) 9 MCG/DL (65-175)
[2017-08-11 22:12] LABS: HAPTOGLOBIN 204 MG/DL (30-200); RHEUMATOID FACTOR SCREEN NEGATIVE (NEGATIVE)
[2017-08-11 22:30] LABS: % SATURATION IRON PROFILE 2.6 % (20-50); FERRITIN 45 NG/ML (26-388); FOLATE 8.1 NG/ML (3.1-17.5); LDH SERUM 93 U/L (87-241); TOTAL IRON BINDING CAPACITY 344 MCG/DL (250-450)
[2017-08-11] MEDS ORDERED: VANCOMYCIN 1,500 MG/NS 500 ML IV SCH ×2 (23:00)
[2017-08-11 23:10] LABS: HEMATOCRIT 24.4 % (39.0-51.0); HEMOGLOBIN 7.5 GM/DL (13.0-17.0)
[2017-08-12] VITALS (11 sets, daily range): BP systolic 75–114; BP diastolic 47–68; PULSE 40–63; RESP 12–18; TEMP 97.5–98.9; O2SAT 91–99
[2017-08-12] MEDS: ONDANSETRON HCL 4 MG/2 ML VIAL IV PUSH PRN ×3 (00:44→22:05)
[2017-08-12] MEDS: ACETAMINOPHEN 1000 MG/100 ML 100 ML IV SCH ×3 (00:45→19:55)
[2017-08-12] MEDS: PIPERACIL-TAZO 3.375 GM PREMIX 50 ML IV SCH ×4 (02:00→19:55)
[2017-08-12] MEDS: SODIUM CHLOR 0.9% 1000 ML INJ 1,000 ML IV SCH ×3 (03:36→22:34)
[2017-08-12] MEDS: CHLORHEXIDINE GLUCONATE 2 % 1 PACK (2 CLOTHS) TOP SCH (04:00)
[2017-08-12 04:57] LABS: AUTOMATED NEUTROPHIL # 4.1 TH/MM3 (1.8-7.7); BASOPHIL # 0.1 TH/MM3 (0-0.2); BASOPHIL % 0.9 % (0.0-2.0); EOSINOPHIL # 0.3 TH/MM3 (0-0.4); HEMATOCRIT 21.5 % (39.0-51.0); LYMPH % 18.9 % (9.0-44.0); LYMPHOCYTE # 1.2 TH/MM3 (1.0-4.8); MEAN CELL VOLUME 68.3 FL (80.0-100.0); MEAN CORPUSCULAR HEMOGLOBIN 21.1 PG (27.0-34.0); MEAN CORPUSCULAR HGB CONC 30.9 % (32.0-36.0); MEAN PLATELET VOLUME 7.4 FL (7.0-11.0); MONOCYTE # 0.7 TH/MM3 (0-0.9); NEUT % 65.2 % (16.0-70.0); PLATELET COUNT 200 TH/MM3 (150-450); RED BLOOD COUNT 3.14 MIL/MM3 (4.50-5.90); RED CELL DISTRIBUTION WIDTH 19.4 % (11.6-17.2); WHITE BLOOD COUNT 6.4 TH/MM3 (4.0-11.0)
[2017-08-12 05:04] LABS: HEMOGLOBIN 6.6 GM/DL (13.0-17.0)
[2017-08-12 05:19] LABS: ALBUMIN 2.7 GM/DL (3.4-5.0); AST (GOT) 6 U/L (15-37); BICARBONATE 26.4 MEQ/L (21.0-32.0); BLOOD UREA NITROGEN 11 MG/DL (7-18); CALCIUM 7.6 MG/DL (8.5-10.1); CHLORIDE 104 MEQ/L (98-107); CREATININE 0.59 MG/DL (0.60-1.30); GLOMERULAR FILTRATION RATE 157 ML/MIN (>89); GLUCOSE,RANDOM 135 MG/DL (74-106); SODIUM (NA) 137 MEQ/L (136-145)
[2017-08-12] MEDS: HYDROmorphone HCL PF 2 MG/ML VIAL IV PUSH PRN ×3 (05:22→21:30)
[2017-08-12 05:23] LABS: ALKALINE PHOSPHATASE 35 U/L (45-117); ALT (GPT) 11 U/L (12-78); TOTAL BILIRUBIN ADULT 0.4 MG/DL (0.2-1.0); TOTAL PROTEIN 5.6 GM/DL (6.4-8.2)
--- NOTE | 2017-08-12 07:38 | HHI.CCPN ---
Subjective Remarks/Hospital Course This is a 36 year old male that presented to the ED, [facility] complaining of B/L shoulder pain. Per report patient stated that his shoulders have been hurting for the past few days. He went to an orthopedic surgeon who told him he had "severe bicep tendonitis" and injected both shoulders with steroids, and provided him with a Celebrex prescription. Upon further inquiry/ evaluation at [facility], the patient noted that he had been having B/L shoulder pain for approximately 8 months. The patient's medical history is significant for pancreatitis, last hospitalized 02/2016, at [facility]. In addition, the patient's medical history includes a previous admission for anemia and he was recently hospitalized January [address] [facility], and received 2 units of packed red blood cells, was evaluated by GI with an EGD and colonscopy with negative findings. The patient was discharged and no further workup for the anemia was provided. After presentation to the ED, laboratory and imaging studies were performed at [facility]-CT angiography chest revealed no pulmonary embolus but a large pericardial effusion at the right heart border, anemia was noted hemoglobin of 6.8, and leukocytosis 14.7. The patient received 1 unit of packed red blood cells, cardiology Dr. Bolden was consulted, CTS Dr. Willett was consulted by Dr. Alcaraz, ED physician. In addition to the patient' s history of previous episodes of anemia and pancreatitis his medical history significant for hypothyroidism, marijuana use depression, GERD and a history of EtOH abuse with last reported ETOH consumption 09/2016. The patient was stat transported to [facility]. Echo obtained results pending. Critical care medicine was consulted. Subjective: 08/12: Hemoglobin continues to drop this a.m., now 6.6, patient is hypotensive , patient's systolic blood pressure 75. Patient currently being transfused 2 units of packed red blood cells. CT abdomen and pelvis revealed a large fluid collection is at the base of the heart, and in the upper central abdominal region last evening. Images were reviewed by Dr. Willett no intervention at that time. CT chest no precardiac tamponade physiology upon admission. Stat limited echo pending. Discussed and reviewed imaging with Dr. Barboza, stat repeat CT abdomen with IV contrast pending. Arterial line placed for adequate BP monitoring. Objective Vital Signs Date Time Temp Pulse Resp B/P (MAP) Pulse Ox O2 Delivery O2 Flow Rate FiO2 08/12/17 06:18 98.0 50 15 94/57 95 08/12/17 03:51 Nasal Cannula 2.00 Intake and Output 08/12/17 08/12/17 08/13/17 08:00 16:00 00:00 Intake Total 1160 ml Output Total 1100 ml Balance 60 ml Result Diagram: 08/12/1741008/12/17410 Other Results Microbiology Date/Time Source Procedure Growth Status 08/11/17 04:00 Nasal Washing Influenza Types A,B Antigen (ALIYA) - Final NEGATIVE FOR FLU A AND B ANTIGEN.... Complete Imaging Last Impressions CT Angiography 08/11/17411 Signed Impressions: Service Date/Time: Friday, August 11, 2017 04:37 - CONCLUSION: 1. No evidence of pulmonary embolism. 2. Large pericardial effusion. José Miguel Hassan MD Chest X-Ray 08/11/17 0000 Signed Impressions: Service Date/Time: Friday, August 11, 2017 03:51 - CONCLUSION: 1. Cardiomegaly 2. Left lower lobe atelectasis versus pneumonia. 3. Small right effusion 4. Abnormal right heart border is above. CT scan is recommended for further evaluation if clinically indicated. José Miguel Hassan MD Objective Remarks GENERAL: This is a 36-year-old thin male, pale lying bed in no apparent distress SKIN: Warm and dry, and pale HEAD: Atraumatic. Normocephalic. EYES: Pupils equal and round. No scleral icterus. No injection or drainage. ENT: No nasal bleeding or discharge. Mucous membranes pink and moist. NECK: Trachea midline. No JVD. CARDIOVASCULAR: Normal rate, regular rhythm. Telemetry normal sinus rhythm/ sinus tracy, SBP 75 RESPIRATORY: No accessory muscle use. Clear to auscultation. Breath sounds equal bilaterally. No dyspnea noted GASTROINTESTINAL: Abdomen soft, non-tender, nondistended. No guarding. MUSCULOSKELETAL: Extremities without clubbing, cyanosis, or edema. No obvious deformities. NEUROLOGICAL: GCS 15. Awake and alert. RASS 0. No gross focal/sensory deficits. Follows commands in all 4 extremities. A/P Assessment and Plan This is a 36-year-old male, recurrent episodes of significant anemia requiring blood transfusions, now presenting with pericardial effusion and a history significant for acute pancreatitis. Plan by systems: Neurologic: Anxiety disorder Depression THC abuse Bilateral shoulder pain-resolved Neurochecks per ICU protocol Long-acting sedative type medications Tylenol 650 mg every 6 hours when necessary for pain or temperature greater than 100.5 Obtain urine drug screen Discontinue patient's home meds Celebrex Cortisol level-WNL Dilaudid 1 mg every 4 hours when necessary for pain VAS scale 7-10 Respiratory: Tobacco use disorder THC use/abuse disorder Respiratory insufficiency-resolved Pleural effusion Maintain O2 sat greater than 92%. Patient on 2 L nasal cannula O2 sat 94% Provide1-4 L/m nasal cannula Incentive spirometry while awake Duo nebs every 4 hours when necessary for wheezing ABGs and chest x-ray when clinically indicated Patient counseled on cessation of smoking 08/11 chest x-ray-small right-sided effusion 08/11 CT angiogram chest no PE, large pericardial effusion at right heart border, small bilateral pleural effusions Cardiovascular: Pericardial effusion Hypotension Bradycardia 08/11 echo-no pre- tamponade physiology CTS surgery consulted-Dr. Willett 08/11 EKG-LAE, RBBB, sinus rhythm If pericardiocentesis required /performed -follow up in the immunological, and infectious lab specimens Initial troponin < 0.02 08/11 echo-small pericardial effusion. No pre-tamponade physiology EF 50-55% 08/12 Repeat stat limited echo-small pericardial effusion. Moderate left pleural effusion . no pretamponade physiology Renal: No Cuellar required at this time -- Strict I/Os FEN/GI: Acute pancreatitis GERD Maintain nothing by mouth status Lipase level- elevated 456 Continue NS 100cc/hr 08/11 CT of abdomen/pelvis-large complex loculated appearing fluid collections along the base of the heart and in the upper central abdominal region. Differential includes loculated pericardial effusion, abscess or hematoma 08/12-obtain stat CT abdomen with IV contrast follow-up results GI consulted- Dr Singh Heme/ID: Recurrent Anemia Leukocytosis Acute blood loss anemia Transfuse 2 units of packed red blood cells-obtain posttransfusion Hgb 7.5 with decrease this am to 6.6 Continue to 6 hour H&H. Transfuse as necessary when hemoglobin less than 7.0 Monitor CBC Hematology-oncology following- Dr. Dash following 08/11 F/U Anemia labs and YOLANDA 08/11 F/U blood and urine cultures- NGTD INR 1.2 and fibrinogen level 429 Haptoglobin 204, LDH 93- No hemolysis Endocrine: Hypothyroidism thyroid panel- TSH 2.280, Free T4 1.19- WNL Continue levothyroxine 88ug/day Glucose monitoring per ICU protocol -- SSI Prophylaxis: GI Prophylaxis Famotidine BID DVT Prophylaxis -- SCDs No chemical DVT prophylaxis in the setting of severe anemia and acute ongoing bleeding Lines: IVs 2 providing adequate access. Left radial A-line 08/12 Central line if indicated Dispo: my billing statement This patient remains critically ill with one or more organ systems which are or may become a threat to life. I have spent in excess of 55 minutes discontinuously in the care and management of this patient. This time is exclusive of procedures, and includes, but is not limited to, evaluation of the patient, review of the medical record, discussions with family, consultants, nursing staff, or respiratory therapy, and documentation in the medical record. 08/12 D/W CTS- Elizabeth Mares MD, IR- Dr. Barboza, patient's mother Mrs. Marianna Manuel , patient and DELIVERY MAN at bedside. Repeat CT with IV contrast this a.m. showed no source of bleeding, contacted general surgery Dr. Bustillos,and evaluated the films with (IR), no general surgery and dictated at this time, no IR intervention at this time. I contacted after stat consult, and discuss case with him patient is Hemoccult negative, no hematemesis,from a GI standpoint stated no intervention at this time. Plan for nuclear bleeding scan to locate source. Physician Nayla Diaz MD Aug 12, 2017 07:38
[2017-08-12] MEDS ORDERED: LIDOCAINE HCL 1% 50 ML VIAL ONE (07:46)
[2017-08-12] MEDS: INSULIN ASPART SUPPLEMENTAL SCALE SQ SCH ×4 (08:00→21:00)
[2017-08-12 08:57] LABS: INTERNATIONAL NORMALIZED RATIO 1.2 RATIO
[2017-08-12] MEDS: LEVOTHYROXINE SODIUM 88 MCG TAB PO SCH (09:00)
[2017-08-12] MEDS: SODIUM CHLORIDE 0.9% FLUSH 10 ML FLUSH IV FLUSH SCH ×2 (09:00→21:00)
[2017-08-12] MEDS: DOCUSATE SODIUM 50 MG/SENNA 8.6 MG TAB PO SCH ×2 (09:00→21:00)
--- NOTE | 2017-08-12 09:13 | ECHRPT ---
Indication: BLEEDING CONCLUSIONS Normal left ventricular size. Wall thickness is normal. The left ventricular systolic function is low normal with an estimated ejection fraction in the rang e of 50- 55%. Trace mitral valve regurgitation. There is trace tricuspid valve regurgitation. Trivial pulmonary valve regurgitation. There is a small pericardial effusion present. A moderate left sided pleural effusion is noted. No hemodynamically significant echocardiographic features were observed (no pre-tamponade physiology). BP: / HR: Rhythm: MEASUREMENTS (Male / Female) Normal Values Technical Quality:Good 2D ECHO LV Diastolic Diameter PLAX 5.0 cm 4.2 - 5.9 / 3.9 - 5.3 cm LV Systolic Diameter PLAX 3.6 cm IVS Diastolic Thickness 0.9 cm 0.6 - 1.0 / 0.6 - 0.9 cm LVPW Diastolic Thickness 0.6 cm 0.6 - 1.0 / 0.6 - 0.9 cm LV Relative Wall Thickness 0.3 DOPPLER TR Peak Velocity 303.0 cm/s TR Peak Gradient 36.7 mmHg FINDINGS LEFT VENTRICLE Normal left ventricular size. Wall thickness is normal. The left ventricular systolic function is low normal with an estimated ejection fraction in the rang e of 50- 55%. RIGHT VENTRICLE Normal right ventricular size and systolic function. LEFT ATRIUM The left atrial size is normal. RIGHT ATRIUM The right atrial size is normal. ATRIAL SEPTUM Normal atrial septal thickness without atrial level shunting by limited color doppler interrogation. AORTA The aortic root and proximal ascending aorta are normal in size on limited imaging. MITRAL VALVE Trace mitral valve regurgitation. AORTIC VALVE Trileaflet aortic valve. No aortic valve stenosis or regurgitation. TRICUSPID VALVE There is trace tricuspid valve regurgitation. PULMONARY VALVE Trivial pulmonary valve regurgitation. VESSELS The inferior vena cava is normal in size. PERICARDIUM There is a small pericardial effusion present. A moderate left sided pleural effusion is noted. No hemodynamically significant echocardiographic features were observed (no pre-tamponade physiology). Gilma Romo MD, FACC (Electronically Signed) Final Date:12 August 2017 09:12
[2017-08-12] MEDS ORDERED: ATROPINE SULFATE 1 MG/10 ML SYRINGE ONE ×3 (09:46→23:54)
[2017-08-12] MEDS ORDERED: EPINEPHrine HCL (1:10,000) 1 MG/10 ML SYRINGE ONE ×2 (09:46→13:08)
[2017-08-12] MEDS ORDERED: IOHEXOL 350 MG/ML 10 ML VIAL (for RAD DIAG) IVCONTRAST ONE (10:18)
--- NOTE | 2017-08-12 10:35 | RADRPT ---
EXAM DATE/TIME: 08/12/2017 10:05 This report includes an Addendum and supersedes previous reports for this exam. [facility] COMPARISON: No previous studies available for comparison. INDICATIONS : Acute blood loss IV CONTRAST: 71 cc Omnipaque 350 (iohexol) IV ORAL CONTRAST: No oral contrast ingested. RADIATION DOSE: 4.47 CTDIvol (mGy) MEDICAL HISTORY : Pancreatitis. SURGICAL HISTORY : None. ENCOUNTER: Initial ACUITY: 1 day PAIN SCALE: 10/10 LOCATION: upper quadrant TECHNIQUE: Volumetric scanning of the abdomen was performed. Using automated exposure control and adjustment of the mA and/or kV according to patient size, radiation dose was kept as low as reasonably achievable to obtain optimal diagnostic quality images. DICOM format image data is available electronically for review and comparison. FINDINGS: Again seen are the bilateral pleural effusions and likely of fluid in the upper abdomen adjacent to t he pericardium all stable in the interval. Liver is free of focal defects. Spleen is prominent There is no retrograde no hematoma. I do not see significant ascites to suggest hemorrhage. CONCLUSION: Stable CT scan of the upper abdomen. I do not see an etiology for the patient's acut e blood loss. Hunter Chirinos MD FACR on August 12, 2017 at 10:29 Board Certified Radiologist. This report was verified electronically. ADDENDUM: I was asked to review the above. I do not see a source for the patient's ongoing blood loss as descri bed in the above report. In addition, multiple loculated fluid collections beginning in the upper ret roperitoneum and extending through what I believe is the diaphragmatic hiatus may represent mature ps eudocyst. This is associated with a pericardial effusion and bilateral pleural effusions and regional atelectasis. 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 Jaspreet Barboza MD on August 12, 2017 at 15:59 Board Certified Radiologist. This report was verified electronically.
[2017-08-12] MEDS: FAMOTIDINE 20 MG/2 ML VIAL IV PUSH SCH ×2 (10:50→21:29)
[2017-08-12] MEDS: VANCOMYCIN 1,500 MG/NS 500 ML IV SCH ×4 (10:51→19:55)
--- NOTE | 2017-08-12 10:52 | PD.CAR.PN ---
CVT Progress Note Subjective/Hospital Course: 36 year old male that presented to the ED, [facility] complaining of B/L shoulder pain. Per report patient stated that his shoulders have been hurting for the past few days. He went to an orthopedic surgeon who told him he had "severe bicep tendonitis" and injected both shoulders with steroids, and provided him with a Celebrex prescription. Upon further inquiry/ evaluation at [facility], the patient noted that he had been having B/L shoulder pain for approximately 8 months. ED findings including , laboratory and imaging studies were performed at [place]-CT angiography chest revealed no pulmonary embolus but a large pericardial effusion at the right heart border, anemia was noted hemoglobin of 6.8, and leukocytosis 14.7. The patient received 2 unit of packed red blood cells, cardiology and CVS consulted / stat ECHO showed small pericardial effusion , moderate left pleural effusion no surgical intervention warranted. 08/12: Hemoglobin continued to drop to 6.6 despite 2 units PRBC yesterday , stat limited echo showed no change in small pericardial effusion , stat ct abdomen pending , receiving more PRBC this am 2/2 also to episode of hypotension , CT results reviewed by Dr Willett from yesterday and discussed with oscar Alvarado started for BP monitoring , no CVS intervention at this time, may need general surgery Objective: GENERAL: A&O skin pale , warm SKIN: Warm and dry. HEAD: Normocephalic. EYES: No scleral icterus. No injection or drainage. NECK: Supple, trachea midline. No JVD or lymphadenopathy. CARDIOVASCULAR: Regular rate and rhythm without murmurs, gallops, or rubs. RESPIRATORY: Breath sounds equal bilaterally. No accessory muscle use. GASTROINTESTINAL: Abdomen slightly firm , hypoactive BS, mild tenderness right lower quadrant soft, non-tender, nondistended. MUSCULOSKELETAL: No cyanosis, or edema. BACK: Nontender without obvious deformity. No CVA tenderness. Vital Signs Date Time Temp Pulse Resp B/P (MAP) Pulse Ox O2 Delivery O2 Flow Rate FiO2 08/12/17 08:10 97.5 51 18 95/60 98 08/12/17 06:18 98.0 50 15 94/57 95 08/12/17 05:55 97.5 63 16 90/55 92 08/12/17 03:51 96 Nasal Cannula 2.00 08/12/17 03:51 49 08/12/17 03:51 98.0 44 16 94/55 (68) 96 08/11/17 23:36 47 08/11/17 23:36 96 Nasal Cannula 2.00 08/11/17 23:36 98.1 44 16 104/59 (74) 96 08/11/17 21:55 93 Nasal Cannula 2.00 08/11/17 19:24 98.2 64 16 108/66 (80) 96 08/11/17 19:24 96 Nasal Cannula 2.00 08/11/17 19:00 64 08/11/17 18:53 16 08/11/17 15:00 100.1 73 16 100/62 (75) 94 08/11/17 15:00 95 Nasal Cannula 2.00 08/11/17 15:00 68 08/11/17 11:30 100.0 78 16 107/71 99 08/11/17 11:00 99.3 99 16 101/65 (77) 92 08/11/17 11:00 85 08/11/17 11:00 95 Nasal Cannula 2.00 08/11/17 10:45 75 16 101/65 96 Labs: Laboratory Tests Test 08/12/17 04:11 08/12/17 08:15 White Blood Count 6.4 TH/MM3 (4.0-11.0) Red Blood Count 3.14 MIL/MM3 (4.50-5.90) Hemoglobin 6.6 GM/DL (13.0-17.0) Hematocrit 21.5 % (39.0-51.0) Mean Corpuscular Volume 68.3 FL (80.0-100.0) Mean Corpuscular Hemoglobin 21.1 PG (27.0-34.0) Mean Corpuscular Hemoglobin Concent 30.9 % (32.0-36.0) Red Cell Distribution Width 19.4 % (11.6-17.2) Platelet Count 200 TH/MM3 (150-450) Mean Platelet Volume 7.4 FL (7.0-11.0) Neutrophils (%) (Auto) 65.2 % (16.0-70.0) Lymphocytes (%) (Auto) 18.9 % (9.0-44.0) Monocytes (%) (Auto) 11.0 % (0.0-8.0) Eosinophils (%) (Auto) 4.0 % (0.0-4.0) Basophils (%) (Auto) 0.9 % (0.0-2.0) Neutrophils # (Auto) 4.1 TH/MM3 (1.8-7.7) Lymphocytes # (Auto) 1.2 TH/MM3 (1.0-4.8) Monocytes # (Auto) 0.7 TH/MM3 (0-0.9) Eosinophils # (Auto) 0.3 TH/MM3 (0-0.4) Basophils # (Auto) 0.1 TH/MM3 (0-0.2) CBC Comment DIFF FINAL Differential Comment Blood Urea Nitrogen 11 MG/DL (7-18) Creatinine 0.59 MG/DL (0.60-1.30) Random Glucose 135 MG/DL (74-106) Total Protein 5.6 GM/DL (6.4-8.2) Albumin 2.7 GM/DL (3.4-5.0) Calcium Level 7.6 MG/DL (8.5-10.1) Alkaline Phosphatase 35 U/L (45-117) Aspartate Amino Transf (AST/SGOT) 6 U/L (15-37) Alanine Aminotransferase (ALT/SGPT) 11 U/L (12-78) Total Bilirubin 0.4 MG/DL (0.2-1.0) Sodium Level 137 MEQ/L (136-145) Potassium Level 3.4 MEQ/L (3.5-5.1) Chloride Level 104 MEQ/L (98-107) Carbon Dioxide Level 26.4 MEQ/L (21.0-32.0) Anion Gap 7 MEQ/L (5-15) Estimat Glomerular Filtration Rate 157 ML/MIN (>89) Prothrombin Time 12.0 SEC (9.8-11.6) Prothromb Time International Ratio 1.2 RATIO Fibrinogen 424 mg/dL (227-377) Result Diagram: 08/12/1741008/12/17410 Cardiovascular: NSR (1) Depression (2) Anemia Plan: hematology following for additional 2 units PRBC (3) Hypothyroidism (4) Hypotension due to blood loss Plan: CCM following , repeat stat ct abdomen pending Problem Qualifiers (1) Depression: (2) Anemia: Qualified Codes: D64.9 - Anemia, unspecified Katia Nation Aug 12, 2017 10:52
[2017-08-12] MEDS ORDERED: CALCIUM GLUCONATE INJ 2 GM in SODIUM CHLORIDE 0.9% INJ 100 ML IV ONE (11:00)
[2017-08-12 11:22] LABS: HEMATOCRIT 24.4 % (39.0-51.0); HEMOGLOBIN 7.5 GM/DL (13.0-17.0)
--- NOTE | 2017-08-12 12:19 | PD.CONS ---
HPI Service General Surgery Consult Requested By Dr. Almaguer Reason for Consult Hemoperitoneum Primary Care Physician Andrew Alonso, History of Present Illness 36 yo M h/o heavy ETOH use, reportedly sober since September 2016, with intra- abdominal fluid collection and symptomatic anemia with admission hemoglobin of 6.8. He was transfused but again had decreasing hemoglobin today requiring repeat transfusion. His fluid collection in the upper abdomen through the diaphragmatic hiatus associated with pleural effusions and pericardial effusion. Stat echo shows small pericardial effusion and he did not require any intervention. A repeat CT of the abdomen and pelvis today with IV contrast did not show any active bleeding. Again the fluid collection in the upper abdomen was visualized. The fluid collection is felt to possibly represent a mature pseudocyst. 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 The patient has been evaluated by Dr. Arce who does not recommend any intervention at this time from his standpoint. The patient relates that at [facility] recently he had a similar episode which required 2 units of packed red blood cells and then he stabilized. His primary complaint is of epigastric and substernal chest pain. Prior to the hospitalization he has been complaining of shoulder pain. He has a history of pancreatitis and has also undergone multiple thoracenteses in the past. Review of Systems Constitutional: DENIES: Weight loss, Chills Eyes: DENIES: Eye inflammation, Eye pain Ears, nose, mouth, throat: DENIES: Nasal discharge Respiratory: DENIES: Cough, Shortness of breath Cardiovascular: COMPLAINS OF: Chest pain, DENIES: Palpitations Gastrointestinal: COMPLAINS OF: Abdominal pain, Nausea, DENIES: Vomiting Musculoskeletal: DENIES: Back pain, Neck pain Integumentary: DENIES: Pruritus, Rash Neurologic: DENIES: Paresthesias, Seizures Past Family Social History Past Medical History Pancreatitis hypothyroidism GERD History of EtOH abuse Past Surgical History Multiple thoracenteses Reported Medications Reported Meds & Active Scripts Active Reported Buspirone (Buspirone HCl) 15 Mg Tab 15 Mg PO BID Methylprednisolone Dosepak (Methylprednisolone) 4 Dspk 4 Mg PO DIRECTED Per Pharmacist Direction Celebrex (Celecoxib) 200 Mg Cap 200 Mg PO BID Levothyroxine (Levothyroxine Sodium) 88 Mcg Tab 88 Mcg PO DAILY Lexapro (Escitalopram Oxalate) 20 Mg Tab 20 Mg PO DAILY Allergies: Coded Allergies: No Known Drug Allergies (Verified Allergy, Unknown, 08/11/17) Active Ordered Medications Current Medications Medications (Trade) Dose Ordered Sig/Sophie Route Start Time Stop Time Status Last Admin Sodium Chloride 1,000 ml @ 100 mls/hr Q10H IV 08/11/17 06:34 08/12/17 03:36 (NS Flush) 2 ml UNSCH PRN IV FLUSH 08/11/17 06:45 (NS Flush) 2 ml BID IV FLUSH 08/11/17 09:00 08/12/17 09:00 (Tylenol) 650 mg Q6H PRN PO 08/11/17 06:45 (Pepcid Inj) 20 mg Q12HR IV PUSH 08/11/17 09:00 08/12/17 10:50 (Zofran Inj) 4 mg Q6H PRN IV PUSH 08/11/17 06:45 08/12/17 05:49 (Duoneb Neb) 1 ampule Q4HR NEB PRN INH 08/11/17 06:45 Miscellaneous Information 1 Q361D XX 08/11/17 06:45 08/11/17 06:45 (Chlorhexidine 2% Cloth) 3 pack Taper DAILY@04 TOP 08/12/17 04:00 08/08/18 03:59 08/12/17 04:00 (Chlorhexidine 2% Cloth) 3 pack UNSCH PRN TOP 08/11/17 06:45 (Yolanda-Colace) 1 tab BID PO 08/11/17 09:00 (Milk Of Magnesia Liq) 30 ml Q12H PRN PO 08/11/17 06:45 (Senokot) 17.2 mg Q12H PRN PO 08/11/17 06:45 (Dulcolax Supp) 10 mg DAILY PRN RECTAL 08/11/17 06:45 (Lactulose Liq) 30 ml DAILY PRN PO 08/11/17 06:45 (D50w (Vial) Inj) 50 ml UNSCH PRN IV PUSH 08/11/17 06:45 (Glucagon Inj) 1 mg UNSCH PRN OTHER 08/11/17 06:45 (NovoLOG SUPPLEMENTAL SCALE) 1 ACHS SLIDING SCALE SQ 08/11/17 08:00 Potassium Chloride 100 ml @ 50 mls/hr Q2H PRN IV 08/11/17 06:45 Potassium Chloride 100 ml @ 50 mls/hr Q2H PRN IV 08/11/17 06:45 (K-Lyte Cl Eff) 50 meq UNSCH PRN PO 08/11/17 06:45 Potassium Chloride 100 ml @ 25 mls/hr UNSCH PRN IV 08/11/17 06:45 Potassium Chloride 100 ml @ 50 mls/hr Q2H PRN IV 08/11/17 06:45 Magnesium Sulfate 4 gm/Sodium Chloride 100 ml @ 50 mls/hr UNSCH PRN IV 08/11/17 06:45 (Mag-Ox) 800 mg UNSCH PRN PO 08/11/17 06:45 Magnesium Sulfate 2 gm/Sodium Chloride 100 ml @ 50 mls/hr UNSCH PRN IV 08/11/17 06:45 (K-Phos) 2,000 mg Q4H PRN PO 08/11/17 06:45 Sodium Phosphate 30 mmol/Sodium Chloride 250 ml @ 42 mls/hr UNSCH PRN IV 08/11/17 06:45 (K-Phos) 2,000 mg UNSCH PRN PO/TUBE 08/11/17 06:45 Potassium Phosphate 30 mmol/ Sodium Chloride 260 ml @ 42 mls/hr UNSCH PRN IV 08/11/17 06:45 (Synthroid) 88 mcg DAILY PO 08/12/17 09:00 Pharmacy Profile Note 0 ml @ 0 mls/hr UNSCH OTHER 08/11/17 16:45 (Dilaudid Pf Inj) 2 mg Q4H PRN IV PUSH 08/11/17 18:15 08/12/17 05:22 Acetaminophen 100 ml @ 400 mls/hr Q6H IV 08/11/17 19:00 08/12/17 00:45 Piperacillin Sod/ Tazobactam Sod 50 ml @ 100 mls/hr Q6H IV 08/11/17 20:00 08/12/17 10:51 Vancomycin HCl 1500 mg/Sodium Chloride 515 ml @ 257.5 mls/ hr Q8H IV 08/12/17 10:00 08/12/17 10:51 Miscellaneous Information SPECIFIC LAB TO BE DRAWN:VANCOMYCIN TROUGH DATE TO... ONCE ONCE .XX 08/13/17 09:45 08/13/17 09:46 Family History Noncontributory Social History Smokes marijuana. Smokes half-pack cigarettes daily. History of EtOH abuse last used September 2016. Physical Exam Vital Signs Vital Signs Date Time Temp Pulse Resp B/P (MAP) Pulse Ox O2 Delivery O2 Flow Rate FiO2 08/12/17 10:45 96 Nasal Cannula 2.00 08/12/17 08:10 97.5 51 18 95/60 98 08/12/17 06:18 98.0 50 15 94/57 95 08/12/17 05:55 97.5 63 16 90/55 92 08/12/17 03:51 96 Nasal Cannula 2.00 08/12/17 03:51 49 08/12/17 03:51 98.0 44 16 94/55 (68) 96 08/11/17 23:36 47 08/11/17 23:36 96 Nasal Cannula 2.00 08/11/17 23:36 98.1 44 16 104/59 (74) 96 08/11/17 21:55 93 Nasal Cannula 2.00 08/11/17 19:24 98.2 64 16 108/66 (80) 96 08/11/17 19:24 96 Nasal Cannula 2.00 08/11/17 19:00 64 08/11/17 18:53 16 08/11/17 15:00 100.1 73 16 100/62 (75) 94 08/11/17 15:00 95 Nasal Cannula 2.00 08/11/17 15:00 68 Physical Exam GENERAL: Awake and alert. No acute distress. Cooperative. HEAD: Normocephalic. Atraumatic. EYES: Pupils equal round and reactive to light bilaterally. No scleral icterus. ENT: Moist oral mucosa. NECK: Trachea midline. CHEST: Lungs clear to auscultation bilaterally with no wheezing or rhonchi. No respiratory distress. CARDIOVASCULAR: Regular rate and rhythm. ABDOMEN: Mild distention. Mild epigastric tenderness to palpation. EXTREMITIES: No cyanosis or edema. SKIN: Warm, dry, nonjaundiced. Somewhat pale. Laboratory Laboratory Tests Test 08/11/17 14:20 08/11/17 16:58 08/11/17 19:36 08/11/17 20:15 Urine Color YELLOW Urine Turbidity CLEAR Urine pH 7.5 Urine Specific [place] 1.019 Urine Protein NEG Urine Glucose (UA) NEG Urine Ketones NEG Urine Occult Blood NEG Urine Nitrite NEG Urine Bilirubin NEG Urine Urobilinogen LESS THAN 2.0 Urine Leukocyte Esterase NEG Urine WBC 2 Microscopic Urinalysis Comment CULT NOT INDICATED Nasal Screen MRSA (PCR) MRSA DETECTED Urine Opiates Screen NEG Urine Barbiturates Screen NEG Urine Amphetamines Screen NEG Urine Benzodiazepines Screen NEG Urine Cocaine Screen NEG Urine Cannabinoids Screen POS Hemoglobin 7.3 Hematocrit 23.1 Erythrocyte Sedimentation Rate 43 Reticulocyte Count 3.0 Absolute Reticulocyte Count 105.8 Lipase 456 Haptoglobin 204 Lactic Acid Level 0.7 Iron Level 9 Total Iron Binding Capacity 344 Percent Iron Saturation 2.6 Ferritin 45 Lactate Dehydrogenase 93 C-Reactive Protein 13.00 Vitamin B12 Level 237 Folate 8.1 Random Cortisol 2.9 Rheumatoid Factor Screen NEGATIVE Rheumatoid Factor Titer Test 08/11/17 22:25 08/12/17 04:11 08/12/17 08:15 08/12/17 10:30 Hemoglobin 7.5 6.6 7.5 Hematocrit 24.4 21.5 24.4 White Blood Count 6.4 Red Blood Count 3.14 Mean Corpuscular Volume 68.3 Mean Corpuscular Hemoglobin 21.1 Mean Corpuscular Hemoglobin Concent 30.9 Red Cell Distribution Width 19.4 Platelet Count 200 Mean Platelet Volume 7.4 Neutrophils (%) (Auto) 65.2 Lymphocytes (%) (Auto) 18.9 Monocytes (%) (Auto) 11.0 Eosinophils (%) (Auto) 4.0 Basophils (%) (Auto) 0.9 Neutrophils # (Auto) 4.1 Lymphocytes # (Auto) 1.2 Monocytes # (Auto) 0.7 Eosinophils # (Auto) 0.3 Basophils # (Auto) 0.1 CBC Comment DIFF FINAL Differential Comment Blood Urea Nitrogen 11 Creatinine 0.59 Random Glucose 135 Total Protein 5.6 Albumin 2.7 Calcium Level 7.6 Alkaline Phosphatase 35 Aspartate Amino Transf (AST/SGOT) 6 Alanine Aminotransferase (ALT/SGPT) 11 Total Bilirubin 0.4 Sodium Level 137 Potassium Level 3.4 Chloride Level 104 Carbon Dioxide Level 26.4 Anion Gap 7 Estimat Glomerular Filtration Rate 157 Prothrombin Time 12.0 Prothromb Time International Ratio 1.2 Fibrinogen 424 Date/Time Source Procedure Growth Status 08/11/17 20:36 Blood Peripheral Aerobic Blood Culture - Preliminary NO GROWTH IN 1 DAY Resulted 08/11/17 20:36 Blood Peripheral Anaerobic Blood Culture - Preliminary NO GROWTH IN 1 DAY Resulted 08/11/17 04:00 Nasal Washing Influenza Types A,B Antigen (ALIYA) - Final NEGATIVE FOR FLU A AND B ANTIGEN.... Complete Result Diagram: 08/12/17 1030 08/12/17 0411 Imaging Last Impressions GI Bleed Scan Nuclear Medicine 08/12/17 0000 Signed Impressions: Service Date/Time: Saturday, August 12, 2017 14:15 - CONCLUSION: Negative for significant gastrointestinal hemorrhage. Correlation to exclude rectosigmoid hemorrhage. Hunter Chirinos MD FACR Abdomen CT 08/12/17 0000 Signed Impressions: Service Date/Time: Saturday, August 12, 2017 10:05 - CONCLUSION: Stable CT scan of the upper abdomen. I do not see an etiology for the patient's acute blood loss. Hunter Chirinos MD FACRADDENDUM: I was asked to review the above. I do not see a source for the patient's ongoing blood loss as described in the above report. In addition, multiple loculated fluid collections beginning in the upper retroperitoneum and extending through what I believe is the diaphragmatic hiatus may represent mature pseudocyst. This is associated with a pericardial effusion and bilateral pleural effusions and regional atelectasis. 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 Jaspreet Barboza MD CT Angiography 08/11/17 0412 Signed Impressions: Service Date/Time: Friday, August 11, 2017 04:37 - CONCLUSION: 1. No evidence of pulmonary embolism. 2. Large pericardial effusion. José Miguel Hassan MD Chest X-Ray 08/11/17 0000 Signed Impressions: Service Date/Time: Friday, August 11, 2017 03:51 - CONCLUSION: 1. Cardiomegaly 2. Left lower lobe atelectasis versus pneumonia. 3. Small right effusion 4. Abnormal right heart border is above. CT scan is recommended for further evaluation if clinically indicated. José Miguel Hassan MD Abdomen/Pelvis CT 08/11/17 0000 Signed Impressions: Service Date/Time: Friday, August 11, 2017 17:18 - CONCLUSION: 1. Large complex loculated appearing fluid collections along the base of the heart and in the upper central abdomen. Differential diagnosis includes loculated pericardial fluid, abscess and hematoma. Tumor is also a consideration. 2. There is a small amount of fluid in the posterior pelvis. 3. Nonspecific bowel gas pattern most consistent with an ileus. 4. Small bilateral pleural effusions with consolidation in both posterior lung bases. Harsha Garcia MD Assessment and Plan Assessment and Plan 36-year-old male with history of alcohol abuse with cirrhosis. He appears to have intra-abdominal bleeding with a fluid collection in the upper abdomen. He required transfusion again today. The etiology of his bleeding is unclear. I discuss case with Dr. Barboza who does not see any indication for angiogram. Case also discussed with Dr. Almaguer. She will order a nuclear bleeding scan. There is no surgical intervention necessary or that would appear to be beneficial at this time as the source of bleeding is unclear, and may be related to variceal bleeding intra-abdominally. Will follow up tomorrow. Discussed Condition With Dr. Tripp Barboza ApolloJoselito MD Aug 12, 2017 12:19
[2017-08-12 12:32] LABS: ALB/GLOB RATIO (SPE) 1.48 (1.39-2.23)
--- NOTE | 2017-08-12 12:49 | PD.ONC.PN ---
Subjective Subjective Remarks Afebrile Pt reports he has persistent pain in his shoulders Had a BM yesterday that was not dark at all Per TURPENTINER he is going down for a bleeding scan Objective Data Date Time Temp Pulse Resp B/P (MAP) Pulse Ox O2 Delivery O2 Flow Rate FiO2 08/12/17 10:45 96 Nasal Cannula 2.00 08/12/17 08:10 97.5 51 18 95/60 98 08/12/17 06:18 98.0 50 15 94/57 95 08/12/17 05:55 97.5 63 16 90/55 92 08/12/17 03:51 96 Nasal Cannula 2.00 08/12/17 03:51 49 08/12/17 03:51 98.0 44 16 94/55 (68) 96 08/11/17 23:36 47 08/11/17 23:36 96 Nasal Cannula 2.00 08/11/17 23:36 98.1 44 16 104/59 (74) 96 08/11/17 21:55 93 Nasal Cannula 2.00 08/11/17 19:24 98.2 64 16 108/66 (80) 96 08/11/17 19:24 96 Nasal Cannula 2.00 08/11/17 19:00 64 08/11/17 18:53 16 08/11/17 15:00 100.1 73 16 100/62 (75) 94 08/11/17 15:00 95 Nasal Cannula 2.00 08/11/17 15:00 68 08/12/17 08/12/17 08/12/17 07:00 15:00 23:00 Intake Total 1160 ml 400 ml Output Total 1100 ml Balance 60 ml 400 ml Result Diagram: 08/12/17 1030 08/12/17 0411 Laboratory Results Laboratory Tests Test 08/11/17 14:20 08/11/17 16:58 08/11/17 19:36 08/11/17 20:15 Urine Color YELLOW Urine Turbidity CLEAR Urine pH 7.5 Urine Specific [place] 1.019 Urine Protein NEG mg/dL Urine Glucose (UA) NEG mg/dL Urine Ketones NEG mg/dL Urine Occult Blood NEG Urine Nitrite NEG Urine Bilirubin NEG Urine Urobilinogen LESS THAN 2.0 MG/DL Urine Leukocyte Esterase NEG Urine WBC 2 /hpf Microscopic Urinalysis Comment CULT NOT INDICATED Nasal Screen MRSA (PCR) MRSA DETECTED Urine Opiates Screen NEG Urine Barbiturates Screen NEG Urine Amphetamines Screen NEG Urine Benzodiazepines Screen NEG Urine Cocaine Screen NEG Urine Cannabinoids Screen POS Hemoglobin 7.3 GM/DL Hematocrit 23.1 % Erythrocyte Sedimentation Rate 43 mm/hr Reticulocyte Count 3.0 % Absolute Reticulocyte Count 105.8 MIL/L Lipase 456 U/L Haptoglobin 204 MG/DL Lactic Acid Level 0.7 mmol/L Iron Level 9 MCG/DL Total Iron Binding Capacity 344 MCG/DL Percent Iron Saturation 2.6 % Ferritin 45 NG/ML Lactate Dehydrogenase 93 U/L C-Reactive Protein 13.00 MG/DL Vitamin B12 Level 237 PG/ML Folate 8.1 NG/ML Random Cortisol 2.9 MCG/DL Rheumatoid Factor Screen NEGATIVE Rheumatoid Factor Titer IU/ML Test 08/11/17 22:25 08/12/17 04:11 08/12/17 08:15 08/12/17 10:30 Hemoglobin 7.5 GM/DL 6.6 GM/DL 7.5 GM/DL Hematocrit 24.4 % 21.5 % 24.4 % White Blood Count 6.4 TH/MM3 Red Blood Count 3.14 MIL/MM3 Mean Corpuscular Volume 68.3 FL Mean Corpuscular Hemoglobin 21.1 PG Mean Corpuscular Hemoglobin Concent 30.9 % Red Cell Distribution Width 19.4 % Platelet Count 200 TH/MM3 Mean Platelet Volume 7.4 FL Neutrophils (%) (Auto) 65.2 % Lymphocytes (%) (Auto) 18.9 % Monocytes (%) (Auto) 11.0 % Eosinophils (%) (Auto) 4.0 % Basophils (%) (Auto) 0.9 % Neutrophils # (Auto) 4.1 TH/MM3 Lymphocytes # (Auto) 1.2 TH/MM3 Monocytes # (Auto) 0.7 TH/MM3 Eosinophils # (Auto) 0.3 TH/MM3 Basophils # (Auto) 0.1 TH/MM3 CBC Comment DIFF FINAL Differential Comment Blood Urea Nitrogen 11 MG/DL Creatinine 0.59 MG/DL Random Glucose 135 MG/DL Total Protein 5.6 GM/DL Albumin 2.7 GM/DL Calcium Level 7.6 MG/DL Alkaline Phosphatase 35 U/L Aspartate Amino Transf (AST/SGOT) 6 U/L Alanine Aminotransferase (ALT/SGPT) 11 U/L Total Bilirubin 0.4 MG/DL Sodium Level 137 MEQ/L Potassium Level 3.4 MEQ/L Chloride Level 104 MEQ/L Carbon Dioxide Level 26.4 MEQ/L Anion Gap 7 MEQ/L Estimat Glomerular Filtration Rate 157 ML/MIN Prothrombin Time 12.0 SEC Prothromb Time International Ratio 1.2 RATIO Fibrinogen 424 mg/dL Culture Results Microbiology Date/Time Source Procedure Growth Status 08/11/17 20:36 Blood Peripheral Aerobic Blood Culture - Preliminary NO GROWTH IN 1 DAY Resulted 08/11/17 20:36 Blood Peripheral Anaerobic Blood Culture - Preliminary NO GROWTH IN 1 DAY Resulted 08/11/17 20:15 Blood Peripheral Aerobic Blood Culture - Preliminary NO GROWTH IN 1 DAY Resulted 08/11/17 20:15 Blood Peripheral Anaerobic Blood Culture - Preliminary NO GROWTH IN 1 DAY Resulted 08/11/17 04:00 Nasal Washing Influenza Types A,B Antigen (ALIYA) - Final NEGATIVE FOR FLU A AND B ANTIGEN.... Complete Imaging Studies Last [address] 08/12/17 0000 Signed Impressions: Service Date/Time: Saturday, August 12, 2017 10:05 - CONCLUSION: Stable CT scan of the upper abdomen. I do not see an etiology for the patient's acute blood loss. Hunter Chirinos MD FACR Administered Medications Medications (Trade) Dose Ordered Sig/Sophie Route PRN Reason Start Time Stop Time Status Last Admin Dose Admin Sodium Chloride 1,000 ml @ 100 mls/hr Q10H IV 08/11/17 06:34 08/12/17 03:36 Sodium Chloride (NS Flush) 2 ml BID IV FLUSH 08/11/17 09:00 08/12/17 09:00 Famotidine (Pepcid Inj) 20 mg Q12HR IV PUSH 08/11/17 09:00 08/12/17 10:50 Ondansetron HCl (Zofran Inj) 4 mg Q6H PRN IV PUSH NAUSEA OR VOMITING 08/11/17 06:45 08/12/17 05:49 Miscellaneous Information 1 Q361D XX 08/11/17 06:45 08/11/17 06:45 Chlorhexidine Gluconate (Chlorhexidine 2% Cloth) 3 pack Taper DAILY@04 TOP 08/12/17 04:00 08/08/18 03:59 08/12/17 04:00 Hydromorphone HCl (Dilaudid Pf Inj) 2 mg Q4H PRN IV PUSH PAIN SCALE 7 TO 10 08/11/17 18:15 08/12/17 05:22 Acetaminophen 100 ml @ 400 mls/hr Q6H IV 08/11/17 19:00 08/12/17 00:45 Piperacillin Sod/ Tazobactam Sod 50 ml @ 100 mls/hr Q6H IV 08/11/17 20:00 08/12/17 10:51 Vancomycin HCl 1500 mg/Sodium Chloride 515 ml @ 257.5 mls/ hr Q8H IV 08/12/17 10:00 08/12/17 10:51 Objective Remarks GENERAL: Young male, sitting up in bed talking with visitor in no acute distress. SKIN: Warm and dry. Somewhat pale appearing. HEAD: Normocephalic. EYES: No injection or drainage. NECK: Supple, trachea midline. CARDIOVASCULAR: +S1/S2. RESPIRATORY: Clear anteriorly. Breathing unlabored at rest. On 2 L nasal cannula GASTROINTESTINAL: Abdomen minimally protuberant. Nontender to palpation. EXTREMITIES: No cyanosis, or edema. MUSCULOSKELETAL: Adequate muscle tone. NEUROLOGICAL: No obvious focal deficit. Awake, alert, and oriented x3. Assessment/Plan Problem List: (1) Anemia ICD Codes: D64.9 - Anemia, unspecified Status: Acute Plan: -- Appears to have a bleed as his hemoglobin dropped to 6.6 after he had received 2 units packed red blood cells -- CT abdomen and pelvis with IV contrast this morning shows no source of bleeding -- Nuclear medicine bleeding scan ordered by the biological science technician fish Hx/Workup: 36-year-old male history of alcohol abuse and pancreatitis who was admitted for bilateral shoulder, back and chest pain. CT angiogram on admission showed large pericardial effusion. He was noted to be anemic on admission with hemoglobin of 6.8 and was transfused with 2 units of packed red blood cells. Patient does have a history of having anemia over the summer of 2017 when he was admitted to [facility]. He had anemia workup at that time including EGD, colonoscopy as well as capsule endoscopy which was reportedly all negative. (2) Pericardial effusion ICD Codes: I31.3 - Pericardial effusion (noninflammatory) Status: Acute Plan: -- Echocardiogram showed small pericardial effusion -- Cardiothoracic following Assessment 36 y/o male with history of pancreatitis and alcohol abuse admitted with pericardial effusion and anemia Plan 1. Pt is s/p total [address] Abdomen/Pelvis shows no obvious source of bleed. 3. Monitor for bleeding 4. Monitor CBC 5. Await results of nuclear med bleeding scan. Attending Statement The exam, history, and the medical decision-making described in the above note were completed with the assistance of the mid-level provider. I reviewed and agree with the findings presented. I attest that I had a [id number] encounter with the patient on the same day, and personally performed and documented my assessment and findings in the medical record.No abdominal pain. Hgb still low despite transfusion. w/u consistent with iron deficiency and he has blood loss. Etiolgy unclear. Previous GI w/u unremarkable. CT showed large fluid collection in mid chest/upper abdomen, will need to r/o large hematoma. Surgery and GI is evaluating pt. Continue to monitor CBC and transfuse to keep Hgb >8. Problem Qualifiers (1) Anemia: Qualified Codes: D64.9 - Anemia, unspecified Tina Zheng Aug 12, 2017 12:49 Aleksandr Dash MD Aug 12, 2017 16:05
--- NOTE | 2017-08-12 13:55 | PD.CONS ---
GI Consult GI Consult see formal consult dictated today ASSESSMENT/PLAN: 1. anemiapatient has brown heme negative stool. 2. hypotension 3. abnormal CT scanmass in upper abdomen and lower chest.? Hematoma? Lymphoma ? Abscess 4. history of pancreatitis and pleural effusion PLAN: 1. d/w Dr. Grijalva. general surgery has been consulted It was a pleasure seeing Bob Manuel . Thank you for this consult. Entered by: Jameson Mcbirde MD Aug 12, 2017 13:55
--- NOTE | 2017-08-12 15:35 | MB ---
cc: JAMESON ARCE M.D. DATE OF CONSULTATION: 08/12/2017 DATE OF : 1980 REASON FOR CONSULTATION I was asked to see the patient by Dr. Grijalva for evaluation of anemia and positive GI bleeding, (of note, I saw the patient about around 11 o'clock this morning but I was not able to dictate until now). HISTORY OF PRESENT ILLNESS The patient is a pleasant 36-year-old white male with history of alcohol related pancreatitis as well as left pleural effusions. These are managed by a physician in the [facility]. Eventually he saw me this summer for anemia. Presumably iron deficiency anemia. We did both upper endoscopy and colonoscopy on him and these were done in January of 2017. The upper endoscopy reveals some gastric erosions and a colonoscopy was unremarkable and there is no colitis. A capsule endoscopy shows some nonspecific erythema of the small intestine - no AVMs. There was prolonged gastric retention of the capsule. We wanted the patient to follow up but he did not follow up with us. Apparently, he was complaining of left shoulder pain. He was diagnosed with bicep tendonitis and given injection of steroids. He also was placed on Celebrex. Unfortunately, the pain got more serious and he also developed increase in discomfort and he came to the emergency room. A CT angiography did not show any pulmonary embolism but it showed a possibility of pericardial effusion. Workup showed that the effusion was not that significant. Subsequently, a CT scan of abdomen and pelvis was done and this showed a large complex fluid collection at the base of the heart and the upper central abdomen. They could not rule out loculated pericardial fluid, an abscess or hematoma, they could not rule out a tumor either. A subsequent CT scan did not show any bleeding. Apparently a bleeding scan is going to be done also. In the hospital he has been anemic, hemoglobin 6.8 with microcytic indices and apparently they had been giving transfusions, his hemoglobin dropped again to 6.6 and now it is 7.5. He has no gross bleeding and has an ileus on the CAT scan. We have been asked to evaluate in regards to anemia. The patient denies any type of dysphagia. No nausea, vomiting, no melena, hematochezia or diarrhea. In the hospital he has not had a bowel movement. PAST MEDICAL HISTORY As mentioned above. 1. He has had pancreatitis with alcohol. 2. Pleural effusions. 3. Gastric erosions. 4. Atrophic gastritis. 5. Umbilical hernia. 6. Microcytic anemia. 7. Depression. 8. Hypothyroidism. 9. Iron deficiency. 10. Bipolar. 11. Pneumonia in the past. 12. Alcohol abuse. PAST SURGICAL HISTORY Noncontributory. FAMILY HISTORY Significant for colon cancer in maternal grandfather. REVIEW OF SYSTEMS CONSTITUTIONAL: No weight loss. No fever or chills. CARDIOPULMONARY: No chest pain, palpitations, wheezing or shortness of breath. GASTROINTESTINAL: Please see above. Otherwise, unremarkable ten-point review of systems. ALLERGIES Denies any allergies to me. MEDICATIONS Medications in the hospital include: 1. Vancomycin. 2. Synthroid. 3. Piperacillin. 4. Dilaudid. 5. Pepcid. 6. Yolanda-Colace. 7. Tylenol. 8. Zofran. 9. Albuterol. 10. Senokot. 11. Lactulose. PHYSICAL EXAMINATION VITAL SIGNS: Blood pressure is 95/60, pulse of 51, respiratory rate of 18, temperature 97.5. GENERAL: He is a pale white male resting surprisingly comfortably in bed at this time, appears to be in no acute GI distress. HEENT: His pupils are equal, round, reactive to light. No obvious scleral icterus. Oropharynx had dental caries. No tongue deviation or candidal lesion. Hearing was intact. NECK: The neck is supple without thyromegaly or lymphadenopathy. LUNGS: Clear to auscultation. HEART: Regular rate and rhythm. No gross murmurs heard. ABDOMEN: Soft, nondistended, nontender. No organomegaly. No ascites or hernias. RECTAL: Exam shows scant amount of brown stool, hemoccult negative. EXTREMITIES: No cyanosis, clubbing or edema. Cranial nerves II-XII are grossly intact. No gross sensory deficits. I did not assess his gait. DATABASE Laboratories this morning, hemoglobin 7.5, hematocrit 24.4. Earlier this morning hemoglobin 6.6, hematocrit 21.5, MCV 68.3. White blood cell count of 6400, platelet count of 200,000. Please see HPI in regards to his upper endoscopy and colonoscopy and capsule endoscopy. Please see HPI regarding the recent CT scans he has had. IMPRESSION 1. Anemia - he has brown heme-negative stools. The patient does not necessarily rule out GI bleeding - the blood may have not come down that far, however, he received several units of blood and I expect if this was a GI bleed he would have copious amounts of black or red stool. 2. Hypotension, etiology unclear. 3. Abnormal CAT scan. He has a mass in the upper abdomen and lower chest. This could be hematoma - this could explain why he is persistently anemic. This could be lymphoma, an abscess, etc. Why he has this mass is unclear. He has had previous thoracentesis, whether it is sequela of that or it is related to something in the pancreas is unclear. Theoretically he was taking Celebrex and you worry about a small ulcer with perforation, but again I would expect black or red stools. 4. History of pancreatitis and pleural effusions. RECOMMENDATIONS 1. I discussed this patient with Dr. Grijalva this morning. 2. I suggested getting surgery involved and they have been consulted. 3. Further recommendations depending on what the above testing shows. Jameson Arce MD SP/RODNEY /1:55 PM /2:33 PM YULIANA
--- NOTE | 2017-08-12 16:46 | RADRPT ---
EXAM DATE/TIME: 08/12/2017 14:15 [facility] COMPARISON: No previous studies available for comparison. INDICATIONS : Anemia. DOSE: 20.2 mCi Tc99m Ultratag labeled red blood cells IV IMAGIN hrs MEDICAL HISTORY : Smoker. ETOH abuse. SURGICAL HISTORY : None. ENCOUNTER: Initial ACUITY: 1 day PAIN SCALE: 0/10 LOCATION: Bilateral lower quadrant TECHNIQUE: Following the modified in vitro labeling of autologous red cells, dynamic continuous images were acqu ired for the specified interval. FINDINGS: BIODISTRIBUTION: There is a very good labeling of red cells without significant uptake in the gastric wall. There is good delineation of the blood pool of the spleen and abdominal vessels. BLEEDING: Minimal activity is seen in the low rectosigmoid that may be only bladder. CONCLUSION: Negative for significant gastrointestinal hemorrhage. Correlation to exclude rectosi gmoid hemorrhage. Hunter Chirinos MD FACR on August 12, 2017 at 16:38 Board Certified Radiologist. This report was verified electronically.
[2017-08-12 17:07] LABS: HEMATOCRIT 25.4 % (39.0-51.0); HEMOGLOBIN 8.1 GM/DL (13.0-17.0)
[2017-08-12 23:16] LABS: HEMATOCRIT 25.3 % (39.0-51.0)
[2017-08-13] VITALS (8 sets, daily range): BP systolic 86–119; BP diastolic 47–94; PULSE 42–66; RESP 12–18; TEMP 97.6–98.3; O2SAT 95–99
[2017-08-13] MEDS: ACETAMINOPHEN 1000 MG/100 ML 100 ML IV SCH ×2 (01:05→07:00)
[2017-08-13] MEDS: HYDROmorphone HCL PF 2 MG/ML VIAL IV PUSH PRN ×4 (01:24→17:04)
[2017-08-13] MEDS: PIPERACIL-TAZO 3.375 GM PREMIX 50 ML IV SCH ×4 (02:40→21:24)
[2017-08-13] MEDS: VANCOMYCIN 1,500 MG/NS 500 ML IV SCH ×6 (02:40→22:09)
[2017-08-13] MEDS: CHLORHEXIDINE GLUCONATE 2 % 1 PACK (2 CLOTHS) TOP SCH (04:00)
[2017-08-13 05:10] LABS: AUTOMATED NEUTROPHIL # 3.2 TH/MM3 (1.8-7.7); BASOPHIL # 0.1 TH/MM3 (0-0.2); EOSINOPHIL # 0.4 TH/MM3 (0-0.4); EOSINOPHIL % 6.3 % (0.0-4.0); HEMATOCRIT 27.9 % (39.0-51.0); HEMOGLOBIN 8.6 GM/DL (13.0-17.0); LYMPH % 22.5 % (9.0-44.0); LYMPHOCYTE # 1.3 TH/MM3 (1.0-4.8); MEAN CELL VOLUME 70.8 FL (80.0-100.0); MEAN CORPUSCULAR HEMOGLOBIN 21.7 PG (27.0-34.0); MEAN CORPUSCULAR HGB CONC 30.7 % (32.0-36.0); MEAN PLATELET VOLUME 7.3 FL (7.0-11.0); MONO % 12.4 % (0.0-8.0); MONOCYTE # 0.7 TH/MM3 (0-0.9); NEUT % 57.8 % (16.0-70.0); PLATELET COUNT 209 TH/MM3 (150-450); RED BLOOD COUNT 3.94 MIL/MM3 (4.50-5.90); WHITE BLOOD COUNT 5.6 TH/MM3 (4.0-11.0)
[2017-08-13 05:27] LABS: ALBUMIN 2.7 GM/DL (3.4-5.0); ALKALINE PHOSPHATASE 36 U/L (45-117); ALT (GPT) 11 U/L (12-78); AST (GOT) 10 U/L (15-37); BICARBONATE 21.9 MEQ/L (21.0-32.0); BLOOD UREA NITROGEN 8 MG/DL (7-18); CALCIUM 7.9 MG/DL (8.5-10.1); CHLORIDE 108 MEQ/L (98-107); CREATININE 0.57 MG/DL (0.60-1.30); GLOMERULAR FILTRATION RATE 164 ML/MIN (>89); GLUCOSE,RANDOM 71 MG/DL (74-106); LIPASE 332 U/L (73-393); PHOSPHORUS 2.9 MG/DL (2.5-4.9); SODIUM (NA) 137 MEQ/L (136-145); TOTAL BILIRUBIN ADULT 0.8 MG/DL (0.2-1.0); TOTAL PROTEIN 5.9 GM/DL (6.4-8.2)
--- NOTE | 2017-08-13 07:47 | HHI.CCPN ---
Subjective Remarks/Hospital Course This is a 36 year old male that presented to the ED, [facility] complaining of B/L shoulder pain. Per report patient stated that his shoulders have been hurting for the past few days. He went to an orthopedic surgeon who told him he had "severe bicep tendonitis" and injected both shoulders with steroids, and provided him with a Celebrex prescription. Upon further inquiry/ evaluation at [facility], the patient noted that he had been having B/L shoulder pain for approximately 8 months. The patient's medical history is significant for pancreatitis, last hospitalized 02/2016, at [facility]. In addition, the patient's medical history includes a previous admission for anemia and he was recently hospitalized January 2017 at [facility], and received 2 units of packed red blood cells, was evaluated by GI with an EGD and colonscopy with negative findings. The patient was discharged and no further workup for the anemia was provided. After presentation to the ED, laboratory and imaging studies were performed at [facility]-CT angiography chest revealed no pulmonary embolus but a large pericardial effusion at the right heart border, anemia was noted hemoglobin of 6.8, and leukocytosis 14.7. The patient received 1 unit of packed red blood cells, cardiology Dr. Bolden was consulted, CTS Dr. Willett was consulted by Dr. Alcaraz, ED physician. In addition to the patient' s history of previous episodes of anemia and pancreatitis his medical history significant for hypothyroidism, marijuana use depression, GERD and a history of EtOH abuse with last reported ETOH consumption 09/2016. The patient was stat transported to [facility]. Echo obtained results pending. Critical care medicine was consulted. Subjective: 08/12: Hemoglobin continues to drop this a.m., now 6.6, patient is hypotensive , patient's systolic blood pressure 75. Patient currently being transfused 2 units of packed red blood cells. CT abdomen and pelvis revealed a large fluid collection is at the base of the heart, and in the upper central abdominal region last evening. Images were reviewed by Dr. Willett no intervention at that time. CT chest no precardiac tamponade physiology upon admission. Stat limited echo pending. Discussed and reviewed imaging with Dr. Barboza, stat repeat CT abdomen with IV contrast pending. Arterial line placed for adequate BP monitoring. 08/13: Hemoglobin stabilized over the last 12 hours. GI nuclear bleeding scan negative for GI hemorrhage. Continued monitoring of H&H every 6 hours. Patient continues to have shoulder pain,, back pain on a VAS scale 7-10. No hematemesis no melena no reports of nausea. Plan to advance to clear liquid diet this a.m., scheduled PO narcotics. Objective Vital Signs Date Time Temp Pulse Resp B/P (MAP) Pulse Ox O2 Delivery O2 Flow Rate FiO2 08/13/17 06:14 12 08/13/17 03:00 97.6 44 96/53 (67) 99 99/47 (64) 08/13/17 03:00 Nasal Cannula 2.00 08/12/17 20:20 21 Intake and Output 08/13/17 08/13/17 08/14/17 08:00 16:00 00:00 Intake Total 1251 ml Output Total 1390 ml Balance -139 ml Result Diagram: 08/13/17 0420 08/13/17 0420 Other Results Microbiology Date/Time Source Procedure Growth Status 08/11/17 04:00 Nasal Washing Influenza Types A,B Antigen (ALIYA) - Final NEGATIVE FOR FLU A AND B ANTIGEN.... Complete Imaging Last Impressions GI Bleed Scan Nuclear Medicine 08/12/17 0000 Signed Impressions: Service Date/Time: Saturday, August 12, 2017 14:15 - CONCLUSION: Negative for significant gastrointestinal hemorrhage. Correlation to exclude rectosigmoid hemorrhage. Hunter Chirinos MD FACR Abdomen CT 08/12/17 0000 Signed Impressions: Service Date/Time: Saturday, August 12, 2017 10:05 - CONCLUSION: Stable CT scan of the upper abdomen. I do not see an etiology for the patient's acute blood loss. Hunter Chirinos MD FACRADDENDUM: I was asked to review the above. I do not see a source for the patient's ongoing blood loss as described in the above report. In addition, multiple loculated fluid collections beginning in the upper retroperitoneum and extending through what I believe is the diaphragmatic hiatus may represent mature pseudocyst. This is associated with a pericardial effusion and bilateral pleural effusions and regional atelectasis. 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 Jaspreet Barboza MD CT Angiography 08/11/17411 Signed Impressions: Service Date/Time: Friday, August 11, 2017 04:37 - CONCLUSION: 1. No evidence of pulmonary embolism. 2. Large pericardial effusion. José Miguel Hassan MD Chest X-Ray 08/11/17 Signed Impressions: Service Date/Time: Friday, August 11, 2017 03:51 - CONCLUSION: 1. Cardiomegaly 2. Left lower lobe atelectasis versus pneumonia. 3. Small right effusion 4. Abnormal right heart border is above. CT scan is recommended for further evaluation if clinically indicated. José Miguel Hassan MD Abdomen/Pelvis CT 08/11/17 Signed Impressions: Service Date/Time: Friday, August 11, 2017 17:18 - CONCLUSION: 1. Large complex loculated appearing fluid collections along the base of the heart and in the upper central abdomen. Differential diagnosis includes loculated pericardial fluid, abscess and hematoma. Tumor is also a consideration. 2. There is a small amount of fluid in the posterior pelvis. 3. Nonspecific bowel gas pattern most consistent with an ileus. 4. Small bilateral pleural effusions with consolidation in both posterior lung bases. Harsha Garcia MD Last Impressions CT Angiography 08/11/17411 Signed Impressions: Service Date/Time: Friday, August 11, 2017 04:37 - CONCLUSION: 1. No evidence of pulmonary embolism. 2. Large pericardial effusion. José Miguel Hassan MD Chest X-Ray 08/11/17 Signed Impressions: Service Date/Time: Friday, August 11, 2017 03:51 - CONCLUSION: 1. Cardiomegaly 2. Left lower lobe atelectasis versus pneumonia. 3. Small right effusion 4. Abnormal right heart border is above. CT scan is recommended for further evaluation if clinically indicated. José Miguel Hassan MD Objective Remarks GENERAL: This is a 36-year-old thin male, pale lying bed in no apparent distress SKIN: Warm and dry, and pale HEAD: Atraumatic. Normocephalic. EYES: Pupils equal and round. No scleral icterus. No injection or drainage. ENT: No nasal bleeding or discharge. Mucous membranes pink and moist. NECK: Trachea midline. No JVD. CARDIOVASCULAR: Normal rate, regular rhythm. Telemetry normal sinus rhythm/ sinus tracy, SBP 75 RESPIRATORY: No accessory muscle use. Clear to auscultation. Breath sounds equal bilaterally. No dyspnea noted GASTROINTESTINAL: Abdomen soft, non-tender, nondistended. No guarding. Normoactive bowel sounds MUSCULOSKELETAL: Extremities without clubbing, cyanosis, or edema. No obvious deformities. NEUROLOGICAL: GCS 15. Awake and alert. RASS 0. No gross focal/sensory deficits. Follows commands in all 4 extremities. A/P Assessment and Plan This is a 36-year-old male, recurrent episodes of significant anemia requiring blood transfusions, now presenting with pericardial effusion and a history significant for acute pancreatitis. Plan by systems: Neurologic: Anxiety disorder Depression THC abuse Bilateral shoulder pain-resolved Neurochecks per ICU protocol Long-acting sedative type medications Tylenol 650 mg every 6 hours when necessary for pain or temperature greater than 100.5 08/11 urine drug screen- xiphoid THC Discontinued patient's home meds Celebrex Cortisol level-WNL Dilaudid 1 mg every 4 hours PRN for breakthrough pain Percocet every 6 hours scheduled dosing Respiratory: Tobacco use disorder THC use/abuse disorder Respiratory insufficiency-resolved Pleural effusion Maintain O2 sat greater than 92%. Patient on 2 L nasal cannula O2 sat 94% Wean off nasal cannula, currently at 2 L/m Incentive spirometry while awake Duo nebs every 4 hours when necessary for wheezing ABGs and chest x-ray when clinically indicated Patient counseled on cessation of smoking 08/11 chest x-ray-small right-sided effusion 08/11 CT angiogram chest no PE, large pericardial effusion at right heart border, small bilateral pleural effusions Cardiovascular: Pericardial effusion Hypotension Bradycardia 08/11 echo-no pre- tamponade physiology CTS surgery consulted-Dr. Willett 08/11 EKG-LAE, RBBB, sinus rhythm If pericardiocentesis required /performed -follow up in the immunological, and infectious lab specimens Initial troponin < 0.02 08/11 echo-small pericardial effusion. No pre-tamponade physiology EF 50-55% 08/12 Repeat stat limited echo-small pericardial effusion. Moderate left pleural effusion . no pretamponade physiology Renal: No Cuellar required at this time -- Strict I/Os FEN/GI: Acute pancreatitis GERD Begin clear liquid diet Lipase level- elevated 456 Discontinue IV fluid, NS 100cc/hr , if diet tolerated 08/11 CT of abdomen/pelvis-large complex loculated appearing fluid collections along the base of the heart and in the upper central abdominal region. Differential includes loculated pericardial effusion, abscess or hematoma 08/12-stat CT abdomen w/IV contrast-multiple loculated fluid collections beginning in the upper retroperitoneal area and extending through the diaphragmatic hiatus. Possible pseudocyst. 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 No source seen for ongoing blood loss GI following- Dr Singh Heme/ID: Recurrent Anemia Leukocytosis Acute blood loss anemia Transfused 2 units of packed red blood cells 1.9, diffuse 2 units of PRBCs 08/12 -obtain posttransfusion Hgb 7.5 with decrease this am to 6.6 Continue to 6 hour H&H. Transfuse as necessary when hemoglobin less than 7.0 Monitor CBC Hematology-oncology following- Dr. Dash following 08/11 F/U Anemia labs and YOLANDA - pending 08/11 F/U blood and urine cultures- NGTD INR 1.2 and fibrinogen level 429 Haptoglobin 204, LDH 93- No hemolysis Endocrine: Hypothyroidism thyroid panel- TSH 2.280, Free T4 1.19- WNL Continue levothyroxine 88ug/day Glucose monitoring per ICU protocol -- SSI Prophylaxis: GI Prophylaxis Famotidine BID DVT Prophylaxis -- SCDs No chemical DVT prophylaxis in the setting of severe anemia and acute ongoing bleeding Lines: IVs 2 providing adequate access. Left radial A-line 08/12 Central line if indicated Dispo: my billing statement This patient remains critically ill with one or more organ systems which are or may become a threat to life. I have spent in excess of 30 minutes discontinuously in the care and management of this patient. This time is exclusive of procedures, and includes, but is not limited to, evaluation of the patient, review of the medical record, discussions with family, consultants, nursing staff, or respiratory therapy, and documentation in the medical record. 08/12 D/W CTS- Elizabeth Mares MD, IR- Dr. Barboza, patient's mother Mrs. Marianna Manuel , patient and CLINIC MANAGER at bedside. Repeat CT with IV contrast this a.m. showed no source of bleeding, contacted general surgery Dr. Apollo,and evaluated the films with (IR), no general surgery and dictated at this time, no IR intervention at this time. I contacted after stat consult, and discuss case with him patient is Hemoccult negative, no hematemesis,from a GI standpoint stated no intervention at this time. nuclear bleeding scan revealed no source of bleeding. 08/13: D/W CLINIC MANAGER at bedside and patient. Patrick management consulted regarding possible transfer to a tertiary care center secondary to possible splenic thrombosis, splenic varices, and hypertension possibly candidate for TIPS procedure. Physician Nayla Diaz MD Aug 13, 2017 07:47
[2017-08-13] MEDS: INSULIN ASPART SUPPLEMENTAL SCALE SQ SCH ×4 (08:00→20:42)
[2017-08-13] MEDS: SODIUM CHLOR 0.9% 1000 ML INJ 1,000 ML IV SCH ×3 (08:34→23:00)
[2017-08-13] MEDS: SODIUM CHLORIDE 0.9% FLUSH 10 ML FLUSH IV FLUSH SCH ×2 (08:45→20:41)
[2017-08-13] MEDS: DOCUSATE SODIUM 50 MG/SENNA 8.6 MG TAB PO SCH ×2 (08:47→20:42)
[2017-08-13] MEDS: LEVOTHYROXINE SODIUM 88 MCG TAB PO SCH (09:18)
[2017-08-13] MEDS: FAMOTIDINE 20 MG/2 ML VIAL IV PUSH SCH ×2 (09:19→20:41)
[2017-08-13 09:23] LABS: CALCIUM 7.9 MG/DL (8.5-10.1)
[2017-08-13 09:29] LABS: CALCIUM-PROTEIN CORRECTED 8.8 MG/DL (8.5-10.1); TOTAL PROTEIN 5.6 GM/DL (6.4-8.2)
[2017-08-13] MEDS ORDERED: PHARMACY ORDERED LAB ONE (09:45)
[2017-08-13] MEDS: oxyCODONE/ACETAMINOPHEN 7.5 MG/325 MG TAB PO PRN ×4 (10:19→23:24)
--- NOTE | 2017-08-13 11:15 | HHI.PR ---
Subjective Subjective Notes Hemoglobin has been stable overnight. He has no complaints. Objective Vitals/I&O Vital Signs Date Time Temp Pulse Resp B/P (MAP) Pulse Ox O2 Delivery O2 Flow Rate FiO2 08/13/17 08:15 98 Nasal Cannula 2.00 08/13/17 07:00 98.1 42 16 86/49 (61) 109/50 (69) 08/12/17 20:20 21 Labs Laboratory Tests Test 08/12/17 16:44 08/12/17 22:35 08/13/17 04:20 08/13/17 08:40 Hemoglobin 8.1 8.0 8.6 Hematocrit 25.4 25.3 27.9 White Blood Count 5.6 Red Blood Count 3.94 Mean Corpuscular Volume 70.8 Mean Corpuscular Hemoglobin 21.7 Mean Corpuscular Hemoglobin Concent 30.7 Red Cell Distribution Width 22.0 Platelet Count 209 Mean Platelet Volume 7.3 Neutrophils (%) (Auto) 57.8 Lymphocytes (%) (Auto) 22.5 Monocytes (%) (Auto) 12.4 Eosinophils (%) (Auto) 6.3 Basophils (%) (Auto) 1.0 Neutrophils # (Auto) 3.2 Lymphocytes # (Auto) 1.3 Monocytes # (Auto) 0.7 Eosinophils # (Auto) 0.4 Basophils # (Auto) 0.1 CBC Comment DIFF FINAL Differential Comment Blood Urea Nitrogen 8 Creatinine 0.57 Random Glucose 71 Total Protein 5.9 5.6 Albumin 2.7 Calcium Level 7.9 7.9 Phosphorus Level 2.9 Magnesium Level 2.0 Alkaline Phosphatase 36 Aspartate Amino Transf (AST/SGOT) 10 Alanine Aminotransferase (ALT/SGPT) 11 Total Bilirubin 0.8 Sodium Level 137 Potassium Level 4.2 Chloride Level 108 Carbon Dioxide Level 21.9 Anion Gap 7 Estimat Glomerular Filtration Rate 164 Lipase 332 Protein Corrected Calcium 8.8 Vancomycin Level Trough 26.3 Date/Time Source Procedure Growth Status 08/11/17 20:36 Blood Peripheral Aerobic Blood Culture - Preliminary NO GROWTH IN 2 DAYS Resulted 08/11/17 20:36 Blood Peripheral Anaerobic Blood Culture - Preliminary NO GROWTH IN 2 DAYS Resulted 08/11/17 04:00 Nasal Washing Influenza Types A,B Antigen (ALIYA) - Final NEGATIVE FOR FLU A AND B ANTIGEN.... Complete Narrative Exam NAD, comfortable Abd: soft, mild ttp A/P Assessment and Plan 36 yo M h/o ETOH abuse sober for nearly one year with apparent intraabdominal bleeding. Etiology is unknown although appears could be secondary to pancreatic fluid collection or pseudocyst eroding into varices. 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 H/H has been stable overnight. Case discussed again this am with Dr. Barboza and Dr. Almaguer. Dr. Barboza recommends evaluation at tertiary center such as [facility] for further evaluation and consideration for portosystemic shunt. I agree with this recommendation and recommend transfer as inpatient or if he remains stable evaluation as outpatient. I had a long discussion with the patient about his condition and possible causes of the bleeding. He can f/u with me as needed as an outpatient. Joselito Bustillos MD Aug 13, 2017 11:15
--- NOTE | 2017-08-13 14:29 | PD.ONC.PN ---
Subjective Subjective Remarks Afebrile overnight. Patient resting in bed in nad. Eager to know what is causing his hemoglobin to drop. No obvious bleeding. Objective Data Date Time Temp Pulse Resp B/P (MAP) Pulse Ox O2 Delivery O2 Flow Rate FiO2 08/13/17 11:00 54 08/13/17 11:00 98.2 46 16 108/64 (79) 97 106/56 (73) 08/13/17 11:00 97 Room Air 08/13/17 08:15 98 Nasal Cannula 2.00 08/13/17 07:00 99 Nasal Cannula 2.00 08/13/17 07:00 98.1 42 16 86/49 (61) 99 109/50 (69) 08/13/17 07:00 44 08/13/17 06:14 12 08/13/17 03:00 97.6 44 12 96/53 (67) 99 99/47 (64) 08/13/17 03:00 99 Nasal Cannula 2.00 08/13/17 03:00 44 08/13/17 01:35 12 08/12/17 23:00 40 08/12/17 23:00 98.9 40 12 101/58 (72) 91 114/50 (71) 08/12/17 23:00 97 Nasal Cannula 2.00 08/12/17 20:20 94 21 08/12/17 19:00 98.6 53 12 105/64 (78) 93 110/54 (72) 08/12/17 19:00 53 08/12/17 19:00 93 Nasal Cannula 2.00 08/12/17 15:00 98.4 57 18 97/54 (68) 95/54 (68) 08/12/17 15:00 99 Nasal Cannula 2.00 08/12/17 15:00 63 08/13/17 08/13/17 08/13/17 07:00 15:00 23:00 Intake Total 1251 ml 715 ml Output Total 1390 ml Balance -139 ml 715 ml Result Diagram: 08/13/17 0420 08/13/17 042 Laboratory Results Laboratory Tests Test 08/12/17 16:44 08/12/17 22:35 08/13/17 04:20 08/13/17 08:40 Hemoglobin 8.1 GM/DL 8.0 GM/DL 8.6 GM/DL Hematocrit 25.4 % 25.3 % 27.9 % White Blood Count 5.6 TH/MM3 Red Blood Count 3.94 MIL/MM3 Mean Corpuscular Volume 70.8 FL Mean Corpuscular Hemoglobin 21.7 PG Mean Corpuscular Hemoglobin Concent 30.7 % Red Cell Distribution Width 22.0 % Platelet Count 209 TH/MM3 Mean Platelet Volume 7.3 FL Neutrophils (%) (Auto) 57.8 % Lymphocytes (%) (Auto) 22.5 % Monocytes (%) (Auto) 12.4 % Eosinophils (%) (Auto) 6.3 % Basophils (%) (Auto) 1.0 % Neutrophils # (Auto) 3.2 TH/MM3 Lymphocytes # (Auto) 1.3 TH/MM3 Monocytes # (Auto) 0.7 TH/MM3 Eosinophils # (Auto) 0.4 TH/MM3 Basophils # (Auto) 0.1 TH/MM3 CBC Comment DIFF FINAL Differential Comment Blood Urea Nitrogen 8 MG/DL Creatinine 0.57 MG/DL Random Glucose 71 MG/DL Total Protein 5.9 GM/DL 5.6 GM/DL Albumin 2.7 GM/DL Calcium Level 7.9 MG/DL 7.9 MG/DL Phosphorus Level 2.9 MG/DL Magnesium Level 2.0 MG/DL Alkaline Phosphatase 36 U/L Aspartate Amino Transf (AST/SGOT) 10 U/L Alanine Aminotransferase (ALT/SGPT) 11 U/L Total Bilirubin 0.8 MG/DL Sodium Level 137 MEQ/L Potassium Level 4.2 MEQ/L Chloride Level 108 MEQ/L Carbon Dioxide Level 21.9 MEQ/L Anion Gap 7 MEQ/L Estimat Glomerular Filtration Rate 164 ML/MIN Lipase 332 U/L Protein Corrected Calcium 8.8 MG/DL Vancomycin Level Trough 26.3 MCG/ML Culture Results Microbiology Date/Time Source Procedure Growth Status 08/11/17 20:36 Blood Peripheral Aerobic Blood Culture - Preliminary NO GROWTH IN 2 DAYS Resulted 08/11/17 20:36 Blood Peripheral Anaerobic Blood Culture - Preliminary NO GROWTH IN 2 DAYS Resulted 08/11/17 20:15 Blood Peripheral Aerobic Blood Culture - Preliminary NO GROWTH IN 2 DAYS Resulted 08/11/17 20:15 Blood Peripheral Anaerobic Blood Culture - Preliminary NO GROWTH IN 2 DAYS Resulted 08/11/17 04:00 Nasal Washing Influenza Types A,B Antigen (ALIYA) - Final NEGATIVE FOR FLU A AND B ANTIGEN.... Complete Imaging Studies Last Impressions GI Bleed Scan Nuclear Medicine 08/12/17 0000 Signed Impressions: Service Date/Time: Saturday, August 12, 2017 14:15 - CONCLUSION: Negative for significant gastrointestinal hemorrhage. Correlation to exclude rectosigmoid hemorrhage. Hunter Chirinos MD FACR Abdomen CT 08/12/17 0000 Signed Impressions: Service Date/Time: Saturday, August 12, 2017 10:05 - CONCLUSION: Stable CT scan of the upper abdomen. I do not see an etiology for the patient's acute blood loss. Hunter Chirinos MD FACRADDENDUM: I was asked to review the above. I do not see a source for the patient's ongoing blood loss as described in the above report. In addition, multiple loculated fluid collections beginning in the upper retroperitoneum and extending through what I believe is the diaphragmatic hiatus may represent mature pseudocyst. This is associated with a pericardial effusion and bilateral pleural effusions and regional atelectasis. 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 Jaspreet Barboza MD CT Angiography 08/11/17 0412 Signed Impressions: Service Date/Time: Friday, August 11, 2017 04:37 - CONCLUSION: 1. No evidence of pulmonary embolism. 2. Large pericardial effusion. José Miguel Hassan MD Chest X-Ray 08/11/17 0000 Signed Impressions: Service Date/Time: Friday, August 11, 2017 03:51 - CONCLUSION: 1. Cardiomegaly 2. Left lower lobe atelectasis versus pneumonia. 3. Small right effusion 4. Abnormal right heart border is above. CT scan is recommended for further evaluation if clinically indicated. José Miguel Hassan MD Abdomen/Pelvis CT 08/11/17 0000 Signed Impressions: Service Date/Time: Friday, August 11, 2017 17:18 - CONCLUSION: 1. Large complex loculated appearing fluid collections along the base of the heart and in the upper central abdomen. Differential diagnosis includes loculated pericardial fluid, abscess and hematoma. Tumor is also a consideration. 2. There is a small amount of fluid in the posterior pelvis. 3. Nonspecific bowel gas pattern most consistent with an ileus. 4. Small bilateral pleural effusions with consolidation in both posterior lung bases. Harsha Garcia MD Administered Medications Medications (Trade) Dose Ordered Sig/Sophie Route PRN Reason Start Time Stop Time Status Last Admin Dose Admin Sodium Chloride 1,000 ml @ 100 mls/hr Q10H IV 08/11/17 06:34 08/12/17 22:34 Sodium Chloride (NS Flush) 2 ml BID IV FLUSH 08/11/17 09:00 08/12/17 21:00 Famotidine (Pepcid Inj) 20 mg Q12HR IV PUSH 08/11/17 09:00 08/13/17 09:19 Ondansetron HCl (Zofran Inj) 4 mg Q6H PRN IV PUSH NAUSEA OR VOMITING 08/11/17 06:45 08/12/17 22:05 Miscellaneous Information 1 Q361D XX 08/11/17 06:45 08/11/17 06:45 Chlorhexidine Gluconate (Chlorhexidine 2% Cloth) 3 pack Taper DAILY@04 TOP 08/12/17 04:00 08/08/18 03:59 08/13/17 04:00 Potassium Bicarb/ Potassium Chloride (K-Lyte Cl Eff) 50 meq UNSCH PRN PO For Potassium 3.3 - 3.5 mEq/L 08/11/17 06:45 08/12/17 23:38 Levothyroxine Sodium (Synthroid) 88 mcg DAILY PO 08/12/17 09:00 08/13/17 09:18 Piperacillin Sod/ Tazobactam Sod 50 ml @ 100 mls/hr Q6H IV 08/11/17 20:00 08/13/17 13:59 Hydromorphone HCl (Dilaudid Pf Inj) 1 mg Q6HR PRN IV PUSH PAIN SCALE 7 TO 10 08/13/17 08:00 08/13/17 11:15 Oxycodone/ Acetaminophen (Percocet 7.5-325 Mg) 1 tab Q6H PRN PO PAIN SCALE 6 TO 10 08/13/17 08:00 08/13/17 10:19 Objective Remarks GENERAL: Young man, sitting up in bed in nad. SKIN: Warm and dry. no visible bruising. peripheral IV without bleeding. HEAD: Normocephalic. EYES: No injection or drainage. NECK: Supple, trachea midline. CARDIOVASCULAR: Regular rate and rhythm RESPIRATORY: Breath sounds equal bilaterally. No accessory muscle use. GASTROINTESTINAL: Abdomen soft, non-tender, nondistended. MUSCULOSKELETAL: No cyanosis, or edema. NEURO: awake and alert, normal speech. moving all extremities. Assessment/Plan Problem List: (1) Anemia ICD Codes: D64.9 - Anemia, unspecified Status: Acute Plan: --GI bleeding scan negative. ++ history of having anemia over the summer of 2016 when he was admitted to [facility]. He had anemia workup at that time including EGD, colonoscopy as well as capsule endoscopy which was reportedly all negative. --s/p pRBC during this admission --labs consistent with iron deficiency d/t blood loss. --no evidence of hemolysis. (2) Pericardial effusion ICD Codes: I31.3 - Pericardial effusion (noninflammatory) Status: Acute Plan: -- Echocardiogram showed small pericardial effusion -- CTS following. Assessment 36 y/o male with history of pancreatitis and alcohol abuse admitted with pericardial effusion and anemia Plan 1. monitor CBC, 2. transfuse to keep hemoglobin great er than 8mg/dL Problem Qualifiers (1) Anemia: Qualified Codes: D64.9 - Anemia, unspecified Flory Myrick Aug 13, 2017 14:29
[2017-08-13] MEDS ORDERED: SODIUM CHLOR 0.9% 1000 ML INJ 1,000 ML IV SCH (15:00)
[2017-08-13] MEDS ORDERED: ACETAMINOPHEN 1000 MG/100 ML 100 ML IV SCH (15:00)
[2017-08-13 15:23] LABS: HEMATOCRIT 34.4 % (39.0-51.0); HEMOGLOBIN 10.7 GM/DL (13.0-17.0)
[2017-08-13] MEDS: ONDANSETRON HCL 4 MG/2 ML VIAL IV PUSH PRN (17:33)
--- NOTE | 2017-08-13 18:14 | HHI.GIFU ---
GI Follow-up Note Consult Follow-up Subjective: Patient laying in bed comfortably, no new complaints except Objective: PHYSICAL EXAMINATION: 103/74-47-16 No fever HEENT: Throat is clear. NECK: Neck is supple, no JVD, no lymphadenopathy. CHEST: Chest is clear to auscultation and percussion. CARDIAC: Regular rate and rhythm ABDOMEN: Soft, nondistended, nontender; no hepatosplenomegaly; bowel sounds are present in all four quadrants. EXTREMITIES: No edema. SKIN: no jaundice. MOLDING SUPERVISOR: No focal deficits; alert and oriented times three. Available Data (labs, X- Rays, Procedues) : Hgb 10.7 ASSESSMENT/PLAN: 1. Anemia - he has brown heme-negative stools (Iron def)-past w/u this summer was negative 2. Hypotension-better 3. Abnormal CAT scan-?splenic vein thrombosis 4. History of pancreatitis and pleural effusions. RECOMMENDATIONS 1. ? transfer to a tertiary care center 2. Further recommendations depending on how he does 3. D/W family It was a pleasure seeing Bob Manuel. Thank you for this consult. Entered by: Jameson Mcbride MD Aug 13, 2017 18:14
[2017-08-14] MEDS: ONDANSETRON HCL 4 MG/2 ML VIAL IV PUSH PRN (01:18)
[2017-08-14] MEDS: HYDROmorphone HCL PF 2 MG/ML VIAL IV PUSH PRN ×5 (01:19→21:41)
[2017-08-14] MEDS: PIPERACIL-TAZO 3.375 GM PREMIX 50 ML IV SCH ×4 (01:34→21:41)
[2017-08-14 03:00] VITALS: BP 100/65; PULSE 52; RESP 18; TEMP 98.2
[2017-08-14] MEDS: CHLORHEXIDINE GLUCONATE 2 % 1 PACK (2 CLOTHS) TOP SCH (04:00)
[2017-08-14] MEDS: oxyCODONE/ACETAMINOPHEN 7.5 MG/325 MG TAB PO PRN ×3 (04:57→17:53)
[2017-08-14] MEDS ORDERED: HYDROmorphone HCL PF 2 MG/ML VIAL IV ONE (05:45)
[2017-08-14] MEDS: SODIUM CHLOR 0.9% 1000 ML INJ 1,000 ML IV SCH ×2 (07:00→15:00)
[2017-08-14 07:16] LABS: AUTOMATED NEUTROPHIL # 2.8 TH/MM3 (1.8-7.7); BASOPHIL # 0.1 TH/MM3 (0-0.2); BASOPHIL % 1.3 % (0.0-2.0); EOSINOPHIL # 0.4 TH/MM3 (0-0.4); EOSINOPHIL % 8.5 % (0.0-4.0); HEMATOCRIT 30.8 % (39.0-51.0); HEMOGLOBIN 9.8 GM/DL (13.0-17.0); LYMPH % 20.9 % (9.0-44.0); MEAN CELL VOLUME 70.8 FL (80.0-100.0); MEAN CORPUSCULAR HEMOGLOBIN 22.5 PG (27.0-34.0); MEAN CORPUSCULAR HGB CONC 31.7 % (32.0-36.0); MEAN PLATELET VOLUME 7.4 FL (7.0-11.0); MONO % 10.8 % (0.0-8.0); MONOCYTE # 0.5 TH/MM3 (0-0.9); NEUT % 58.5 % (16.0-70.0); PLATELET COUNT 244 TH/MM3 (150-450); RED BLOOD COUNT 4.36 MIL/MM3 (4.50-5.90); RED CELL DISTRIBUTION WIDTH 23.1 % (11.6-17.2); WHITE BLOOD COUNT 4.9 TH/MM3 (4.0-11.0)
[2017-08-14 07:29] LABS: CALCIUM 8.4 MG/DL (8.5-10.1); CREATININE 0.66 MG/DL (0.60-1.30)
--- NOTE | 2017-08-14 07:34 | HHI.CCPN ---
Subjective Remarks/Hospital Course This is a 36 year old male that presented to the ED, [facility] complaining of B/L shoulder pain. Per report patient stated that his shoulders have been hurting for the past few days. He went to an orthopedic surgeon who told him he had "severe bicep tendonitis" and injected both shoulders with steroids, and provided him with a Celebrex prescription. Upon further inquiry/ evaluation at [facility], the patient noted that he had been having B/L shoulder pain for approximately 8 months. The patient's medical history is significant for pancreatitis, last hospitalized 02/2016, at [facility]. In addition, the patient's medical history includes a previous admission for anemia and he was recently hospitalized January 2017 at [facility], and received 2 units of packed red blood cells, was evaluated by GI with an EGD and colonscopy with negative findings. The patient was discharged and no further workup for the anemia was provided. After presentation to the ED, laboratory and imaging studies were performed at [place]-CT angiography chest revealed no pulmonary embolus but a large pericardial effusion at the right heart border, anemia was noted hemoglobin of 6.8, and leukocytosis 14.7. The patient received 1 unit of packed red blood cells, cardiology Dr. Bolden was consulted, CTS Dr. Willett was consulted by Dr. Alcaraz, ED physician. In addition to the patient' s history of previous episodes of anemia and pancreatitis his medical history significant for hypothyroidism, marijuana use depression, GERD and a history of EtOH abuse with last reported ETOH consumption 09/2016. The patient was stat transported to [facility]. Echo obtained results pending. Critical care medicine was consulted. Subjective: 08/12: Hemoglobin continues to drop this a.m., now 6.6, patient is hypotensive , patient's systolic blood pressure 75. Patient currently being transfused 2 units of packed red blood cells. CT abdomen and pelvis revealed a large fluid collection is at the base of the heart, and in the upper central abdominal region last evening. Images were reviewed by Dr. Willett no intervention at that time. CT chest no precardiac tamponade physiology upon admission. Stat limited echo pending. Discussed and reviewed imaging with Dr. Barboza, stat repeat CT abdomen with IV contrast pending. Arterial line placed for adequate BP monitoring. 08/13: Hemoglobin stabilized over the last 12 hours. GI nuclear bleeding scan negative for GI hemorrhage. Continued monitoring of H&H every 6 hours. Patient continues to have shoulder pain,, back pain on a VAS scale 7-10. No hematemesis no melena no reports of nausea. Plan to advance to clear liquid diet this a.m., scheduled PO narcotics. 08/14: Afebrile. Hemoglobin stable 9.8.Shoulder pain well controlled. Nausea resolved. Patient placed on regular diet this a.m.. Hemodynamically stable. Plan for PT evaluation and treat out of bed with ambulation. Objective Vital Signs Date Time Temp Pulse Resp B/P (MAP) Pulse Ox O2 Delivery O2 Flow Rate FiO2 08/14/17 06:52 19 08/14/17 03:00 52 08/14/17 03:00 98.2 100/65 (77) 08/14/17 03:00 98 Room Air 08/13/17 20:55 21 08/13/17 08:15 2.00 Intake and Output 08/14/17 08/14/17 08/15/17 08:00 16:00 00:00 Intake Total 1510 ml Output Total 1950 ml Balance -440 ml Result Diagram: 08/14/17 0712 08/13/17 0420 Imaging Last Impressions GI Bleed Scan Nuclear Medicine 08/12/17 0000 Signed Impressions: Service Date/Time: Saturday, August 12, 2017 14:15 - CONCLUSION: Negative for significant gastrointestinal hemorrhage. Correlation to exclude rectosigmoid hemorrhage. Hunter Chirinos MD FACR Abdomen CT 08/12/17 0000 Signed Impressions: Service Date/Time: Saturday, August 12, 2017 10:05 - CONCLUSION: Stable CT scan of the upper abdomen. I do not see an etiology for the patient's acute blood loss. Hunter Chirinos MD FACRADDENDUM: I was asked to review the above. I do not see a source for the patient's ongoing blood loss as described in the above report. In addition, multiple loculated fluid collections beginning in the upper retroperitoneum and extending through what I believe is the diaphragmatic hiatus may represent mature pseudocyst. This is associated with a pericardial effusion and bilateral pleural effusions and regional atelectasis. 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 Jaspreet Barboza MD CT Angiography [id number]/11/17411 Signed Impressions: Service Date/Time: Friday, August 11, 2017 04:37 - CONCLUSION: 1. No evidence of pulmonary embolism. 2. Large pericardial effusion. José Miguel Hassan MD Chest X-Ray 08/11/17 Signed Impressions: Service Date/Time: Friday, August 11, 2017 03:51 - CONCLUSION: 1. Cardiomegaly 2. Left lower lobe atelectasis versus pneumonia. 3. Small right effusion 4. Abnormal right heart border is above. CT scan is recommended for further evaluation if clinically indicated. José Miguel Hassan MD Abdomen/Pelvis CT 08/11/17 Signed Impressions: Service Date/Time: Friday, August 11, 2017 17:18 - CONCLUSION: 1. Large complex loculated appearing fluid collections along the base of the heart and in the upper central abdomen. Differential diagnosis includes loculated pericardial fluid, abscess and hematoma. Tumor is also a consideration. 2. There is a small amount of fluid in the posterior pelvis. 3. Nonspecific bowel gas pattern most consistent with an ileus. 4. Small bilateral pleural effusions with consolidation in both posterior lung bases. Harsha Garcia MD Last Impressions CT Angiography 08/11/17411 Signed Impressions: Service Date/Time: Friday, August 11, 2017 04:37 - CONCLUSION: 1. No evidence of pulmonary embolism. 2. Large pericardial effusion. José Miguel Hassan MD Chest X-Ray 08/11/17 Signed Impressions: Service Date/Time: Friday, August 11, 2017 03:51 - CONCLUSION: 1. Cardiomegaly 2. Left lower lobe atelectasis versus pneumonia. 3. Small right effusion 4. Abnormal right heart border is above. CT scan is recommended for further evaluation if clinically indicated. José Miguel Hassan MD Objective Remarks GENERAL: This is a 36-year-old thin male in no apparent distress SKIN: Warm and dry, and pale HEAD: Atraumatic. Normocephalic. EYES: Pupils equal and round. No scleral icterus. No injection or drainage. ENT: No nasal bleeding or discharge. Mucous membranes pink and moist. NECK: Trachea midline. No JVD. CARDIOVASCULAR: Normal rate, regular rhythm. Telemetry normal sinus rhythm/ sinus tracy, SBP 75 RESPIRATORY: No accessory muscle use. Clear to auscultation. Breath sounds equal bilaterally. No dyspnea noted GASTROINTESTINAL: Abdomen soft, non-tender, nondistended. No guarding. Normoactive bowel sounds MUSCULOSKELETAL: Extremities without clubbing, cyanosis, or edema. No obvious deformities. NEUROLOGICAL: GCS 15. Awake and alert. RASS 0. No gross focal/sensory deficits. Follows commands in all 4 extremities. A/P Assessment and Plan This is a 36-year-old male, recurrent episodes of significant anemia requiring blood transfusions, now presenting with pericardial effusion and a history significant for acute pancreatitis. Plan by systems: Neurologic: Anxiety disorder Depression THC abuse Bilateral shoulder pain-resolved Neurochecks per ICU protocol Long-acting sedative type medications Tylenol 650 mg every 6 hours when necessary for pain or temperature greater than 100.5 08/11 urine drug screen- xiphoid THC Discontinued patient's home meds Celebrex Cortisol level-WNL Dilaudid 1 mg every 4 hours PRN for breakthrough pain Percocet every 6 hours scheduled dosing PRN Respiratory: Tobacco use disorder THC use/abuse disorder Respiratory insufficiency-resolved Pleural effusion Maintain O2 sat greater than 92%. Currently 95-96%percent on room air Incentive spirometry while awake Duo nebs every 4 hours when necessary for wheezing ABGs and chest x-ray when clinically indicated Patient counseled on cessation of smoking 08/11 chest x-ray-small right-sided effusion 08/11 CT angiogram chest no PE, large pericardial effusion at right heart border, small bilateral pleural effusions Cardiovascular: Pericardial effusion Hypotension Bradycardia 08/11 echo-no pre- tamponade physiology CTS surgery consulted-Dr. Willett 08/11 EKG-LAE, RBBB, sinus rhythm If pericardiocentesis required /performed -follow up in the immunological, and infectious lab specimens Initial troponin < 0.02 08/11 echo-small pericardial effusion. No pre-tamponade physiology EF 50-55% 08/12 Repeat stat limited echo-small pericardial effusion. Moderate left pleural effusion . No pretamponade physiology Renal: No Cuellar required at this time -- Strict I/Os FEN/GI: Acute pancreatitis GERD Begin Regular diet Lipase level- elevated 456 Discontinue IV fluid, NS 100cc/hr , if diet tolerated 1/9 CT of abdomen/pelvis-large complex loculated appearing fluid collections along the base of the heart and in the upper central abdominal region. Differential includes loculated pericardial effusion, abscess or hematoma 08/12-stat CT abdomen w/IV contrast-multiple loculated fluid collections beginning in the upper retroperitoneal area and extending through the diaphragmatic hiatus. Possible pseudocyst. 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 No source seen for ongoing blood loss. GI following- Dr Singh Heme/ID: Recurrent Anemia Leukocytosis Acute blood loss anemia Transfused 2 units of packed red blood cells 1.9, diffuse 2 units of PRBCs 08/12 -obtain posttransfusion Hgb 7.5 with decrease this am to 6.6 Continue to 6 hour H&H. Transfuse as necessary when hemoglobin less than 7.0 Monitor CBC Hematology-oncology following- Dr. Dash following 08/11 F/U Anemia labs and YOLANDA - pending 08/11 F/U blood and urine cultures- NGTD INR 1.2 and fibrinogen level 429 Haptoglobin 204, LDH 93- No hemolysis Endocrine: Hypothyroidism thyroid panel- TSH 2.280, Free T4 1.19- WNL Continue levothyroxine 88ug/day Glucose monitoring per ICU protocol -- SSI Prophylaxis: GI Prophylaxis Famotidine BID DVT Prophylaxis -- SCDs No chemical DVT prophylaxis in the setting of severe anemia and acute ongoing bleeding Lines: IVs 2 providing adequate access. Left radial A-line 08/12 Central line if indicated Dispo: Level 2 08/12 D/W CTS- Elizabeth Mares MD, IR- Dr. Barboza, patient's mother Mrs. Marianna Manuel , patient and RESEARCH QUALITY ASSURANCE SPECIALIST at bedside. Repeat CT with IV contrast this a.m. showed no source of bleeding, contacted general surgery Dr. Bustillos,and evaluated the films with (IR), no general surgery and dictated at this time, no IR intervention at this time. I contacted after stat consult, and discuss case with him patient is Hemoccult negative, no hematemesis,from a GI standpoint stated no intervention at this time. nuclear bleeding scan revealed no source of bleeding. 08/13: D/W RESEARCH QUALITY ASSURANCE SPECIALIST at bedside and patient. Patrick management consulted regarding possible transfer to a tertiary care center secondary to possible splenic thrombosis, splenic varices, and hypertension possibly candidate for TIPS procedure, if indicated. 08/14: Hemoglobin stable plan transfer to [facility] floor. Discussed with patient and patient's mother the importance of follow-up would tertiary care center such as [facility] ([place]) or [facility] in [place] for workup of abdominal bleeding upon discharge. All questions answered. Physician Nayla Diaz MD Aug 14, 2017 07:34
[2017-08-14 08:00] VITALS: BP 111/71; PULSE 54; RESP 16; O2SAT 94
[2017-08-14] MEDS: INSULIN ASPART SUPPLEMENTAL SCALE SQ SCH ×4 (08:00→21:00)
[2017-08-14] MEDS: FAMOTIDINE 20 MG/2 ML VIAL IV PUSH SCH ×2 (08:10→21:41)
[2017-08-14] MEDS: DOCUSATE SODIUM 50 MG/SENNA 8.6 MG TAB PO SCH ×2 (08:11→21:00)
[2017-08-14] MEDS: SODIUM CHLORIDE 0.9% FLUSH 10 ML FLUSH IV FLUSH SCH ×2 (08:11→21:40)
[2017-08-14] MEDS: LEVOTHYROXINE SODIUM 88 MCG TAB PO SCH (08:11)
[2017-08-14] MEDS: VANCOMYCIN 1,500 MG/NS 500 ML IV SCH ×4 (10:29→21:42)
[2017-08-14 12:00] VITALS: BP 107/70; PULSE 58; RESP 17; TEMP 97.8; O2SAT 96
--- NOTE | 2017-08-14 14:22 | HHI.PR ---
Subjective Subjective Notes Continues to feel better. Now tolerating regular diet. H/H stable. Objective Vitals/I&O Vital Signs Date Time Temp Pulse Resp B/P (MAP) Pulse Ox O2 Delivery O2 Flow Rate FiO2 08/14/17 12:00 97.8 58 17 107/70 (82) 96 08/14/17 10:55 21 08/14/17 08:00 Room Air 08/13/17 08:15 2.00 Labs Laboratory Tests Test 08/13/17 14:53 08/14/17 07:12 Hemoglobin 10.7 9.8 Hematocrit 34.4 30.8 White Blood Count 4.9 Red Blood Count 4.36 Mean Corpuscular Volume 70.8 Mean Corpuscular Hemoglobin 22.5 Mean Corpuscular Hemoglobin Concent 31.7 Red Cell Distribution Width 23.1 Platelet Count 244 Mean Platelet Volume 7.4 Neutrophils (%) (Auto) 58.5 Lymphocytes (%) (Auto) 20.9 Monocytes (%) (Auto) 10.8 Eosinophils (%) (Auto) 8.5 Basophils (%) (Auto) 1.3 Neutrophils # (Auto) 2.8 Lymphocytes # (Auto) 1.0 Monocytes # (Auto) 0.5 Eosinophils # (Auto) 0.4 Basophils # (Auto) 0.1 CBC Comment DIFF FINAL Differential Comment Blood Urea Nitrogen 5 Creatinine 0.66 Random Glucose 96 Calcium Level 8.4 Sodium Level 140 Potassium Level 3.5 Chloride Level 104 Carbon Dioxide Level 30.0 Anion Gap 6 Estimat Glomerular Filtration Rate 138 Date/Time Source Procedure Growth Status 08/11/17 20:36 Blood Peripheral Aerobic Blood Culture - Preliminary NO GROWTH IN 3 DAYS Resulted 08/11/17 20:36 Blood Peripheral Anaerobic Blood Culture - Preliminary NO GROWTH IN 3 DAYS Resulted 08/11/17 04:00 Nasal Washing Influenza Types A,B Antigen (ALIYA) - Final NEGATIVE FOR FLU A AND B ANTIGEN.... Complete Radiology Last Impressions GI Bleed Scan Nuclear Medicine 08/12/17 0000 Signed Impressions: Service Date/Time: Saturday, August 12, 2017 14:15 - CONCLUSION: Negative for significant gastrointestinal hemorrhage. Correlation to exclude rectosigmoid hemorrhage. Hunter Chirinos MD FACR Abdomen CT 08/12/17 0000 Signed Impressions: Service Date/Time: Saturday, August 12, 2017 10:05 - CONCLUSION: Stable CT scan of the upper abdomen. I do not see an etiology for the patient's acute blood loss. Hunter Chirinos [facility]: I was asked to review the above. I do not see a source for the patient's ongoing blood loss as described in the above report. In addition, multiple loculated fluid collections beginning in the upper retroperitoneum and extending through what I believe is the diaphragmatic hiatus may represent mature pseudocyst. This is associated with a pericardial effusion and bilateral pleural effusions and regional atelectasis. 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 Jaspreet Barboza MD CT Angiography 08/11/17 0412 Signed Impressions: Service Date/Time: Friday, August 11, 2017 04:37 - CONCLUSION: 1. No evidence of pulmonary embolism. 2. Large pericardial effusion. José Miguel Hassan MD Chest X-Ray 08/11/17 0000 Signed Impressions: Service Date/Time: Friday, August 11, 2017 03:51 - CONCLUSION: 1. Cardiomegaly 2. Left lower lobe atelectasis versus pneumonia. 3. Small right effusion 4. Abnormal right heart border is above. CT scan is recommended for further evaluation if clinically indicated. José Miguel Hassan MD Abdomen/Pelvis CT 08/11/17 0000 Signed Impressions: Service Date/Time: Friday, August 11, 2017 17:18 - CONCLUSION: 1. Large complex loculated appearing fluid collections along the base of the heart and in the upper central abdomen. Differential diagnosis includes loculated pericardial fluid, abscess and hematoma. Tumor is also a consideration. 2. There is a small amount of fluid in the posterior pelvis. 3. Nonspecific bowel gas pattern most consistent with an ileus. 4. Small bilateral pleural effusions with consolidation in both posterior lung bases. Harsha Garcia MD Narrative Exam NAD, comfortable Abd: soft A/P Assessment and Plan 36 yo M h/o ETOH abuse sober for nearly one year with apparent intraabdominal bleeding. Etiology is unknown although appears could be secondary to pancreatic fluid collection or pseudocyst eroding into varices. I discussed with the patient and his mother the importance of close follow up as outpatient and recommendations for evaluation at a tertiary center regarding his liver disease and possible pancreatic pseudocyst and splenic vein thrombosis. He can f/u with me as needed. Joselito Bustillos MD Aug 14, 2017 14:22
--- NOTE | 2017-08-14 14:51 | HHI.GIFU ---
GI Follow-up Note Consult Follow-up Subjective: patient was seen earlier this morning while still in the ICU but I was not able to document this note until this afternoon. Patient laying in bed comfortably, no new complaints--no overt GI bleeding. Nausea improved Objective: PHYSICAL EXAMINATION: Vitals signs stable No fever . NECK: Neck is supple, no JVD, no lymphadenopathy. CHEST: Chest is clear to auscultation and percussion. CARDIAC: Regular rate and rhythm with no murmur gallop or rubs. ABDOMEN: Soft, nondistended, nontender; no hepatosplenomegaly; bowel sounds are present in all four quadrants EXTREMITIES: No clubbing, cyanosis, or edema. SKIN: Normal; no rash; no jaundice. 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 Available Data (labs, X- Rays, Procedues) : Hgb 9.8 ASSESSMENT/PLAN: 1. Anemia - he has brown heme-negative stools (Iron def)-past w/u this summer was negative 2. Hypotension-better 3. Abnormal CAT scan-?splenic vein thrombosis. theoretically patient may have intermittent episodes of the portal hypertension/portal hypertensive gastropathy causing anemia 4. History of pancreatitis and pleural effusions. RECOMMENDATIONS 1. no word in regards to transfer to a tertiary care center 2. Further recommendations depending on how he does 3. D/W family It was a pleasure seeing Bob Manuel. Thank you for this consult. Entered by: Jameson Mcbride MD Aug 14, 2017 14:50
--- NOTE | 2017-08-14 15:28 | HHI.HP ---
History of Present Illness Primary Care Physician Andrew Alonso, DO Admission Diagnosis Anemia, pericardial effusion ,infra cardiac cystic mass unknown etiology possible pseudocyst HX cc pt presented to ED with abd and chest pain and anemia with hgb 6.6 his stools wer heme neg he was transfused and stabilized in icu but the etiology of his anemia chestpain were not able to be identified he is now transferred to med surg for further workup Diagnoses: (1) Anemia Review of Systems Cardiovascular: COMPLAINS OF: Chest pain Musculoskeletal: COMPLAINS OF: Muscle aches Past Family Social History Allergies: Coded Allergies: No Known Drug Allergies (Verified Allergy, Unknown, 08/11/17) Past Medical History pancreatitus etohism though no significant alcohol intake recently, Reported Medications Inpatient Medications Acetaminophen 100 ml @ 400 mls/hr Q6H IV Last administered on 08/13/17at 07:00 ; Start 08/11/17 at 19:00; Stop 08/13/17 at 07:51; Status DC Acetaminophen (Tylenol) 650 mg Q6H PRN PO PAIN 1-10 AND/OR FEVER >101F; Start 08/11/17 at 06:45 Albuterol/ Ipratropium (Duoneb Neb) 1 ampule Q4HR NEB PRN INH WHEEZING; Start 08/11/17 at 06:45 Bisacodyl (Dulcolax Supp) 10 mg DAILY PRN RECTAL SEVERE CONSITIPATION/ IF NPO; Start 08/11/17 at 06:45 Calcium Gluconate 2 gm/Sodium Chloride 120 ml @ 120 mls/hr ONCE ONCE IV Last administered on 08/12/17at 12:37; Start 08/12/17 at 11:00; Stop 08/12/17 at 11:59 ; Status DC Chlorhexidine Gluconate (Chlorhexidine 2% Cloth) 3 pack UNSCH PRN TOP HYGIENIC CARE; Start 08/11/17 at 06:45 Cyclobenzaprine HCl (Flexeril) 10 mg ONCE ONCE PO Last administered on at 04:10; Start 08/11/17 at 03:45; Stop 08/11/17 at 03:47; Status DC Dextrose (D50w (Vial) Inj) 50 ml UNSCH PRN IV PUSH HYPOGLYCEMIA-SEE COMMENTS; Start 08/11/17 at 06:45 Diatrizoate Meglum/ Diatrizoate Sod ( Gastroview Liq) 18 ml ONCE ONCE PO Last administered on 08/11/17at 15:34; Start 08/11/17 at 14:45; Stop 08/11/17 at 14: 46; Status DC Famotidine (Pepcid Inj) 20 mg Q12HR IV PUSH Last administered on 08/14/17at 08: 10; Start 08/11/17 at 09:00 Glucagon (Glucagon Inj) 1 mg UNSCH PRN OTHER HYPOGLYCEMIA-SEE COMMENTS; Start 08/11/17 at 06:45 Hydromorphone HCl (Dilaudid Pf Inj) 1 mg Q6HR PRN IV PUSH BREAKTHROUGH PAIN Last administered on 08/14/17at 14:57; Start 08/14/17 at 13:30 Insulin Aspart (NovoLOG SUPPLEMENTAL SCALE) 1 ACHS SLIDING SCALE SQ ; Start 08/11/17 at 08:00 Ketorolac Tromethamine (Toradol Inj) 30 mg ONCE ONCE IV PUSH Last administered on 08/11/17at 04:10; Start 08/11/17 at 03:45; Stop 08/11/17 at 03:47; Status DC Lactulose (Lactulose Liq) 30 ml DAILY PRN PO SEVERE CONSITIPATION/ IF PO; Start 08/11/17 at 06:45 Levothyroxine Sodium (Synthroid) 88 mcg DAILY PO Last administered on at 08:11; Start 08/12/17 at 09:00 Magnesium Hydroxide (Milk Of Magnesia Liq) 30 ml Q12H PRN PO Mild constipation ; Start 08/11/17 at 06:45 Magnesium Oxide (Mag-Ox) 800 mg UNSCH PRN PO For Magnesium 1.2 - 1.6 mg/dL; Start 08/11/17 at 06:45; Stop 08/14/17 at 11:41; Status DC Magnesium Sulfate 2 gm/Sodium Chloride 100 ml @ 50 mls/hr UNSCH PRN IV For Magnesium 1.2 - 1.6 mg/dL; Start 08/11/17 at 06:45; Stop 08/14/17 at 11:41; Status DC Magnesium Sulfate 4 gm/Sodium Chloride 100 ml @ 50 mls/hr UNSCH PRN IV For Magnesium 0.9 - 1.1 mg/dL; Start 08/11/17 at 06:45; Stop 08/14/17 at 11:41; Status DC Miscellaneous Information SPECIFIC LAB TO BE DRAWN:VANCOMY... ONCE ONCE .XX ; Start 08/15/17 at 09:45; Stop 08/15/17 at 09:46 Morphine Sulfate (Morphine Inj) 2 mg ONCE ONCE IV PUSH Last administered on 08/11/17at 07:39; Start 08/11/17 at 07:45; Stop 08/11/17 at 07:46; Status DC Ondansetron HCl (Zofran Inj) 4 mg Q6H PRN IV PUSH NAUSEA OR VOMITING Last administered on 08/14/17at 01:18; Start 08/11/17 at 06:45 Oxycodone/ Acetaminophen (Percocet 7.5-325 Mg) 1 tab Q6H PRN PO PAIN SCALE 6 TO 10 Last administered on 08/14/17at 11:48; Start 08/13/17 at 08:00 Pharmacy Profile Note 0 ml @ 0 mls/hr UNSCH OTHER ; Start 08/11/17 at 16:45 Piperacillin Sod/ Tazobactam Sod 50 ml @ 100 mls/hr Q6H IV Last administered on 08/14/17at 08:09; Start 08/11/17 at 20:00 Potassium Phosphate (K-Phos) 2,000 mg UNSCH PRN PO/TUBE SEE LABEL COMMENTS; Start 08/11/17 at 06:45; Stop 08/14/17 at 11:41; Status DC Potassium Phosphate 30 mmol/ Sodium Chloride 260 ml @ 42 mls/hr UNSCH PRN IV SEE LABEL COMMENTS; Start 08/11/17 at 06:45; Stop 08/14/17 at 11:41; Status DC Potassium Bicarb/ Potassium Chloride (K-Lyte Cl Eff) 50 meq UNSCH PRN PO For Potassium 3.3 - 3.5 mEq/L Last administered on 08/12/17at 23:38; Start 08/11/17 at 06:45; Stop 08/14/17 at 11:41; Status DC Potassium Chloride 100 ml @ 50 mls/hr Q2H PRN IV For Potassium 3.3 - 3.5 mEq/L ; Start 08/11/17 at 06:45; Stop 08/14/17 at 11:41; Status DC Senna/Docusate Sodium (Yolanda-Colace) 1 tab BID PO ; Start 08/11/17 at 09:00 Sennosides (Senokot) 17.2 mg Q12H PRN PO Moderate constipation; Start 08/11/17 at 06:45 Sodium Chloride 1,000 ml @ 125 mls/hr Q8H IV ; Start 08/13/17 at 15:00 Sodium Chloride (NS Flush) 2 ml BID IV FLUSH Last administered on 08/14/17at 08: 11; Start 08/11/17 at 09:00 Sodium Phosphate 30 mmol/Sodium Chloride 250 ml @ 42 mls/hr UNSCH PRN IV For Phosphorus < 2.5 mg/dL; Start 08/11/17 at 06:45; Stop 08/14/17 at 11:41; Status DC Vancomycin HCl 1500 mg/Sodium Chloride 515 ml @ 257.5 mls/ hr Q12H IV Last administered on 08/14/17at 10:29; Start 08/13/17 at 22:00 Active Ordered Medications Inpatient Medications Acetaminophen 100 ml @ 400 mls/hr Q6H IV Last administered on 08/13/17at 07:00 ; Start 08/11/17 at 19:00; Stop 08/13/17 at 07:51; Status DC Acetaminophen (Tylenol) 650 mg Q6H PRN PO PAIN 1-10 AND/OR FEVER >101F; Start 08/11/17 at 06:45 Albuterol/ Ipratropium (Duoneb Neb) 1 ampule Q4HR NEB PRN INH WHEEZING; Start 08/11/17 at 06:45 Bisacodyl (Dulcolax Supp) 10 mg DAILY PRN RECTAL SEVERE CONSITIPATION/ IF NPO; Start 08/11/17 at 06:45 Calcium Gluconate 2 gm/Sodium Chloride 120 ml @ 120 mls/hr ONCE ONCE IV Last administered on 08/12/17at 12:37; Start 08/12/17 at 11:00; Stop 08/12/17 at 11:59 ; Status DC Chlorhexidine Gluconate (Chlorhexidine 2% Cloth) 3 pack UNSCH PRN TOP HYGIENIC CARE; Start 08/11/17 at 06:45 Cyclobenzaprine HCl (Flexeril) 10 mg ONCE ONCE PO Last administered on at 04:10; Start 08/11/17 at 03:45; Stop 08/11/17 at 03:47; Status DC Dextrose (D50w (Vial) Inj) 50 ml UNSCH PRN IV PUSH HYPOGLYCEMIA-SEE COMMENTS; Start 08/11/17 at 06:45 Diatrizoate Meglum/ Diatrizoate Sod ( Gastroview Liq) 18 ml ONCE ONCE PO Last administered on 08/11/17at 15:34; Start 08/11/17 at 14:45; Stop 08/11/17 at 14: 46; Status DC Famotidine (Pepcid Inj) 20 mg Q12HR IV PUSH Last administered on 08/14/17at 08: 10; Start 08/11/17 at 09:00 Glucagon (Glucagon Inj) 1 mg UNSCH PRN OTHER HYPOGLYCEMIA-SEE COMMENTS; Start 08/11/17 at 06:45 Hydromorphone HCl (Dilaudid Pf Inj) 1 mg Q6HR PRN IV PUSH BREAKTHROUGH PAIN Last administered on 08/14/17at 14:57; Start 08/14/17 at 13:30 Insulin Aspart (NovoLOG SUPPLEMENTAL SCALE) 1 ACHS SLIDING SCALE SQ ; Start 08/11/17 at 08:00 Ketorolac Tromethamine (Toradol Inj) 30 mg ONCE ONCE IV PUSH Last administered on 08/11/17at 04:10; Start 08/11/17 at 03:45; Stop 08/11/17 at 03:47; Status DC Lactulose (Lactulose Liq) 30 ml DAILY PRN PO SEVERE CONSITIPATION/ IF PO; Start 08/11/17 at 06:45 Levothyroxine Sodium (Synthroid) 88 mcg DAILY PO Last administered on at 08:11; Start 08/12/17 at 09:00 Magnesium Hydroxide (Milk Of Magnesia Liq) 30 ml Q12H PRN PO Mild constipation ; Start 08/11/17 at 06:45 Magnesium Oxide (Mag-Ox) 800 mg UNSCH PRN PO For Magnesium 1.2 - 1.6 mg/dL; Start 08/11/17 at 06:45; Stop 08/14/17 at 11:41; Status DC Magnesium Sulfate 2 gm/Sodium Chloride 100 ml @ 50 mls/hr UNSCH PRN IV For Magnesium 1.2 - 1.6 mg/dL; Start 08/11/17 at 06:45; Stop 08/14/17 at 11:41; Status DC Magnesium Sulfate 4 gm/Sodium Chloride 100 ml @ 50 mls/hr UNSCH PRN IV For Magnesium 0.9 - 1.1 mg/dL; Start 08/11/17 at 06:45; Stop 08/14/17 at 11:41; Status DC Miscellaneous Information SPECIFIC LAB TO BE DRAWN:VANCOMY... ONCE ONCE .XX ; Start 08/15/17 at 09:45; Stop 08/15/17 at 09:46 Morphine Sulfate (Morphine Inj) 2 mg ONCE ONCE IV PUSH Last administered on 08/11/17at 07:39; Start 08/11/17 at 07:45; Stop 08/11/17 at 07:46; Status DC Ondansetron HCl (Zofran Inj) 4 mg Q6H PRN IV PUSH NAUSEA OR VOMITING Last administered on 08/14/17at 01:18; Start 08/11/17 at 06:45 Oxycodone/ Acetaminophen (Percocet 7.5-325 Mg) 1 tab Q6H PRN PO PAIN SCALE 6 TO 10 Last administered on 08/14/17at 11:48; Start 08/13/17 at 08:00 Pharmacy Profile Note 0 ml @ 0 mls/hr UNSCH OTHER ; Start 08/11/17 at 16:45 Piperacillin Sod/ Tazobactam Sod 50 ml @ 100 mls/hr Q6H IV Last administered on 08/14/17at 08:09; Start 08/11/17 at 20:00 Potassium Phosphate (K-Phos) 2,000 mg UNSCH PRN PO/TUBE SEE LABEL COMMENTS; Start 08/11/17 at 06:45; Stop 08/14/17 at 11:41; Status DC Potassium Phosphate 30 mmol/ Sodium Chloride 260 ml @ 42 mls/hr UNSCH PRN IV SEE LABEL COMMENTS; Start 08/11/17 at 06:45; Stop 08/14/17 at 11:41; Status DC Potassium Bicarb/ Potassium Chloride (K-Lyte Cl Eff) 50 meq UNSCH PRN PO For Potassium 3.3 - 3.5 mEq/L Last administered on 08/12/17at 23:38; Start 08/11/17 at 06:45; Stop 08/14/17 at 11:41; Status DC Potassium Chloride 100 ml @ 50 mls/hr Q2H PRN IV For Potassium 3.3 - 3.5 mEq/L ; Start 08/11/17 at 06:45; Stop 08/14/17 at 11:41; Status DC Senna/Docusate Sodium (Yolanda-Colace) 1 tab BID PO ; Start 08/11/17 at 09:00 Sennosides (Senokot) 17.2 mg Q12H PRN PO Moderate constipation; Start 08/11/17 at 06:45 Sodium Chloride 1,000 ml @ 125 mls/hr Q8H IV ; Start 08/13/17 at 15:00 Sodium Chloride (NS Flush) 2 ml BID IV FLUSH Last administered on 08/14/17at 08: 11; Start 08/11/17 at 09:00 Sodium Phosphate 30 mmol/Sodium Chloride 250 ml @ 42 mls/hr UNSCH PRN IV For Phosphorus < 2.5 mg/dL; Start 08/11/17 at 06:45; Stop 08/14/17 at 11:41; Status DC Vancomycin HCl 1500 mg/Sodium Chloride 515 ml @ 257.5 mls/ hr Q12H IV Last administered on 08/14/17at 10:29; Start 08/13/17 at 22:00 Social History previously heavy drinker and smoker with illicit drug use Physical Exam Vital Signs Vital Signs Date Time Temp Pulse Resp B/P (MAP) Pulse Ox O2 Delivery O2 Flow Rate FiO2 08/14/17 12:00 97.8 58 17 107/70 (82) 96 08/14/17 10:55 21 08/14/17 08:00 54 16 111/71 (84) 94 08/14/17 08:00 54 08/14/17 08:00 94 Room Air 08/14/17 06:52 19 08/14/17 04:14 19 08/14/17 03:00 52 08/14/17 03:00 98.2 52 18 100/65 (77) 08/14/17 03:00 98 Room Air 08/13/17 23:00 59 08/13/17 23:00 96 Room Air 08/13/17 23:00 98.3 59 18 109/82 (91) 96 08/13/17 20:55 95 21 08/13/17 19:00 98.1 66 18 110/71 (84) 97 Arterial Line 08/13/17 19:00 66 08/13/17 19:00 97 Room Air Physical Exam GENERAL: This is a well-nourished, well-developed patient, in no apparent distress. SKIN: No rashes, ecchymoses or lesions. Cool and dry. HEAD: Atraumatic. Normocephalic. No temporal or scalp tenderness. EYES: Pupils equal round and reactive. Extraocular motions intact. No scleral icterus. No injection or drainage. ENT: Nose without bleeding, purulent drainage or septal hematoma. Throat without erythema, tonsillar hypertrophy or exudate. Uvula midline. Airway patent. NECK: Trachea midline. No JVD or lymphadenopathy. Supple, nontender, no meningeal signs. CARDIOVASCULAR: Regular rate and rhythm without murmurs, gallops, or rubs. RESPIRATORY: Clear to auscultation. Breath sounds equal bilaterally. No wheezes , rales, or rhonchi. GASTROINTESTINAL: Abdomen soft,flat tender epigastrium MUSCULOSKELETAL: Extremities without clubbing, cyanosis, or edema. No joint tenderness, effusion, or edema noted. No calf tenderness. Negative Homans sign bilaterally. NEUROLOGICAL: Awake and alert. Cranial nerves II through XII intact. Motor and sensory grossly within normal limits. Five out of 5 muscle strength in all muscle groups. Normal speech. Laboratory Laboratory Tests Test 08/14/17 07:12 White Blood Count 4.9 Red Blood Count 4.36 Hemoglobin 9.8 Hematocrit 30.8 Mean Corpuscular Volume 70.8 Mean Corpuscular Hemoglobin 22.5 Mean Corpuscular Hemoglobin Concent 31.7 Red Cell Distribution Width 23.1 Platelet Count 244 Mean Platelet Volume 7.4 Neutrophils (%) (Auto) 58.5 Lymphocytes (%) (Auto) 20.9 Monocytes (%) (Auto) 10.8 Eosinophils (%) (Auto) 8.5 Basophils (%) (Auto) 1.3 Neutrophils # (Auto) 2.8 Lymphocytes # (Auto) 1.0 Monocytes # (Auto) 0.5 Eosinophils # (Auto) 0.4 Basophils # (Auto) 0.1 CBC Comment DIFF FINAL Differential Comment Blood Urea Nitrogen 5 Creatinine 0.66 Random Glucose 96 Calcium Level 8.4 Sodium Level 140 Potassium Level 3.5 Chloride Level 104 Carbon Dioxide Level 30.0 Anion Gap 6 Estimat Glomerular Filtration Rate 138 Date/Time Source Procedure Growth Status 08/11/17 20:36 Blood Peripheral Aerobic Blood Culture - Preliminary NO GROWTH IN 3 DAYS Resulted 08/11/17 20:36 Blood Peripheral Anaerobic Blood Culture - Preliminary NO GROWTH IN 3 DAYS Resulted 08/11/17 04:00 Nasal Washing Influenza Types A,B Antigen (ALIYA) - Final NEGATIVE FOR FLU A AND B ANTIGEN.... Complete Result Diagram: 08/14/17 0712 08/14/17 0712 Imaging Last Impressions GI Bleed Scan Nuclear Medicine 08/12/17 0000 Signed Impressions: Service Date/Time: Saturday, August 12, 2017 14:15 - CONCLUSION: Negative for significant gastrointestinal hemorrhage. Correlation to exclude rectosigmoid hemorrhage. Hunter Chirinos MD FACR Abdomen CT 08/12/17 0000 Signed Impressions: Service Date/Time: Saturday, August 12, 2017 10:05 - CONCLUSION: Stable CT scan of the upper abdomen. I do not see an etiology for the patient's acute blood loss. Hunter Chirinos MD [facility]: I was asked to review the above. I do not see a source for the patient's ongoing blood loss as described in the above report. In addition, multiple loculated fluid collections beginning in the upper retroperitoneum and extending through what I believe is the diaphragmatic hiatus may represent mature pseudocyst. This is associated with a pericardial effusion and bilateral pleural effusions and regional atelectasis. 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 Jaspreet Barboza MD CT Angiography 08/11/17 0412 Signed Impressions: Service Date/Time: Friday, August 11, 2017 04:37 - CONCLUSION: 1. No evidence of pulmonary embolism. 2. Large pericardial effusion. José Miguel Hassan MD Chest X-Ray 08/11/17 0000 Signed Impressions: Service Date/Time: Friday, August 11, 2017 03:51 - CONCLUSION: 1. Cardiomegaly 2. Left lower lobe atelectasis versus pneumonia. 3. Small right effusion 4. Abnormal right heart border is above. CT scan is recommended for further evaluation if clinically indicated. José Miguel Hassan MD Abdomen/Pelvis CT 08/11/17 0000 Signed Impressions: Service Date/Time: Friday, August 11, 2017 17:18 - CONCLUSION: 1. Large complex loculated appearing fluid collections along the base of the heart and in the upper central abdomen. Differential diagnosis includes loculated pericardial fluid, abscess and hematoma. Tumor is also a consideration. 2. There is a small amount of fluid in the posterior pelvis. 3. Nonspecific bowel gas pattern most consistent with an ileus. 4. Small bilateral pleural effusions with consolidation in both posterior lung bases. Harsha Garcia MD Course improved stable but remains anemic without source of blood loss Caprini VTE Risk Assessment Caprini VTE Risk Assessment: No/Low Risk (score <= 1) VTE Pharm Contraindication: Hemorrhage Caprini Risk Assessment Model Point Value = 1 Point Value = 2 Point Value = 3 Point Value = 5 Age 41-60 Minor surgery BMI > 25 kg/m2 Swollen legs Varicose veins or History of unexplained or recurrent spontaneous Oral contraceptives or hormone replacement Sepsis (< 1 month) Serious lung disease, including pneumonia (< 1 month) Abnormal pulmonary function Acute myocardial infarction Congestive heart failure (< 1 month) History of inflammatory bowel disease Medical patient at bed rest Age 61-74 Arthroscopic surgery Major open surgery (> 45 min) Laparoscopic surgery (> 45 min) Malignancy Confined to bed (> 72 hours) Immobilizing plaster cast Central venous access Age >= 75 History of VTE Family history of VTE Factor V Leiden Prothrombin [id number] Lupus anticoagulant Anticardiolipin antibodies Elevated serum homocysteine Heparin-induced thrombocytopenia Other congenital or acquired thrombophilia Stroke (< 1 month) Elective arthroplasty Hip, pelvis, or leg fracture Acute spinal cord injury (< 1 month) Prophylaxis Regimen Total Risk Factor Score Risk Level Prophylaxis Regimen 0-1 Low Early ambulation 2 Moderate Order ONE of the following: *Sequential Compression Device (SCD) *Heparin 5000 units SQ BID 3-4 Higher Order ONE of the following medications: *Heparin 5000 units SQ TID *Enoxaparin/Lovenox 40 mg SQ daily (WT < 150 kg, CrCl > 30 mL/min) *Enoxaparin/Lovenox 30 mg SQ daily (WT < 150 kg, CrCl > 10-29 mL/min) *Enoxaparin/Lovenox 30 mg SQ BID (WT < 150 kg, CrCl > 30 mL/min) AND/OR *Sequential Compression Device (SCD) 5 or more Highest Order ONE of the following medications: *Heparin 5000 units SQ TID (Preferred with Epidurals) *Enoxaparin/Lovenox 40 mg SQ daily (WT < 150 kg, CrCl > 30 mL/min) *Enoxaparin/Lovenox 30 mg SQ daily (WT < 150 kg, CrCl > 10-29 mL/min) *Enoxaparin/Lovenox 30 mg SQ BID (WT < 150 kg, CrCl > 30 mL/min) AND *Sequential Compression Device (SCD) Assessment and Plan Assessment and Plan anemia pseudocyst history of pancreatitus will folow hgb and consider transfer to tertiary center should blood loss source not be identified Discussed Condition With patient and family Problem Qualifiers (1) Anemia: Qualified Codes: D64.9 - Anemia, unspecified Andrew Alonso DO Aug 14, 2017 15:28
[2017-08-14 16:00] VITALS: BP 103/61; PULSE 56; RESP 18; TEMP 96.9; O2SAT 94
[2017-08-14 20:00] VITALS: BP 113/66; PULSE 56; RESP 20; TEMP 97.6; O2SAT 98
[2017-08-15] VITALS (8 sets, daily range): BP systolic 90–148; BP diastolic 55–80; PULSE 55–61; RESP 16–20; TEMP 96.7–98; O2SAT 93–100
[2017-08-15] MEDS: oxyCODONE/ACETAMINOPHEN 7.5 MG/325 MG TAB PO PRN ×4 (00:07→21:12)
[2017-08-15] MEDS: PIPERACIL-TAZO 3.375 GM PREMIX 50 ML IV SCH ×3 (02:00→20:00)
[2017-08-15] MEDS: CHLORHEXIDINE GLUCONATE 2 % 1 PACK (2 CLOTHS) TOP SCH (02:01)
[2017-08-15] MEDS: HYDROmorphone HCL PF 2 MG/ML VIAL IV PUSH PRN ×3 (05:21→23:10)
[2017-08-15 07:02] LABS: AUTOMATED NEUTROPHIL # 2.8 TH/MM3 (1.8-7.7); BASOPHIL % 0.7 % (0.0-2.0); EOSINOPHIL # 0.4 TH/MM3 (0-0.4); EOSINOPHIL % 8.9 % (0.0-4.0); HEMATOCRIT 27.8 % (39.0-51.0); HEMOGLOBIN 8.8 GM/DL (13.0-17.0); LYMPH % 18.8 % (9.0-44.0); LYMPHOCYTE # 0.9 TH/MM3 (1.0-4.8); MEAN CELL VOLUME 70.3 FL (80.0-100.0); MEAN CORPUSCULAR HEMOGLOBIN 22.2 PG (27.0-34.0); MEAN CORPUSCULAR HGB CONC 31.5 % (32.0-36.0); MONO % 13.9 % (0.0-8.0); MONOCYTE # 0.7 TH/MM3 (0-0.9); NEUT % 57.7 % (16.0-70.0); PLATELET COUNT 214 TH/MM3 (150-450); RED BLOOD COUNT 3.95 MIL/MM3 (4.50-5.90); RED CELL DISTRIBUTION WIDTH 24.1 % (11.6-17.2); WHITE BLOOD COUNT 4.9 TH/MM3 (4.0-11.0)
[2017-08-15] MEDS: INSULIN ASPART SUPPLEMENTAL SCALE SQ SCH ×2 (08:00→21:00)
[2017-08-15] MEDS: DOCUSATE SODIUM 50 MG/SENNA 8.6 MG TAB PO SCH ×2 (08:36→21:00)
[2017-08-15] MEDS: LEVOTHYROXINE SODIUM 88 MCG TAB PO SCH (08:37)
[2017-08-15] MEDS: FAMOTIDINE 20 MG/2 ML VIAL IV PUSH SCH ×3 (08:37→23:10)
[2017-08-15] MEDS ORDERED: PHARMACY ORDERED LAB ONE (09:45)
--- NOTE | 2017-08-15 12:39 | HHI.GIFU ---
GI Follow-up Note Consult Follow-up Subjective: Patient w/o GI GI bleeding. Some right shoulder pain. No N/V Objective: PHYSICAL EXAMINATION: Vitals signs stable No fever NECK: no lymphadenopathy. CHEST: Chest is clear to auscultation and percussion. CARDIAC: Regular rate and rhythm with no murmur ABDOMEN: Soft, nondistended, nontender; no hepatosplenomegaly; bowel sounds are present in all four quadrants. EXTREMITIES: No edema. SKIN: no jaundice. AIRWAYS CONTROL SPECIALIST: No focal deficits; alert and oriented times three. Available Data (labs, X- Rays, Procedues) : Hgb 8.8 ASSESSMENT/PLAN: 1. Anemia - he had brown heme-negative stools (Iron def)-past w/u this summer was negative. slight drop in Hgb this am but no overt GI bleeding seen 2. Hypotension-better 3. Abnormal CAT scan-?splenic vein thrombosis. theoretically patient may have intermittent episodes of the portal hypertension/portal hypertensive gastropathy causing anemia 4. History of pancreatitis and pleural effusions. RECOMMENDATIONS 1. Unsure if transfer to a tertiary care center has been initiated 2. Further recommendations depending on how he does 3. Consider iron infusions It was a pleasure seeing Bob Manuel. Thank you for this consult. Entered by: Jameson Mcbride MD Aug 15, 2017 12:39
--- NOTE | 2017-08-15 14:46 | HHI.PR ---
Subjective Remarks His Hg cont to drift down and GI is following. Surgery recommends referral to tertiary center for eval of liver disease. Objective Vital Signs Date Time Temp Pulse Resp B/P (MAP) Pulse Ox O2 Delivery O2 Flow Rate FiO2 08/15/17 12:00 97.2 58 16 106/58 (74) 97 08/15/17 10:55 94 08/15/17 08:00 97.3 55 16 105/62 (76) 94 08/15/17 04:00 97.9 61 20 148/80 (102) 93 08/15/17 00:00 97.9 58 20 90/55 (67) 98 08/14/17 20:00 97.6 56 20 113/66 (82) 98 08/14/17 16:00 96.9 56 18 103/61 (75) 94 I/O 08/14/17 08/14/17 08/14/17 08/15/17 08/15/17 08/15/17 07:00 15:00 23:00 07:00 15:00 23:00 Intake Total 1510 ml 450 ml 855 ml 615 ml Output Total 1950 ml 470 ml Balance -440 ml -20 ml 855 ml 615 ml Intake Oral 960 ml 400 ml 240 ml IV Total 550 ml 50 ml 615 ml 615 ml Output Urine Total 1950 ml 470 ml # Voids 6 # Bowel Movements 0 0 1 Result Diagram: 08/15/1739 08/14/17 0712 Objective Remarks HEENT - AT/NC; Lungs - CTA; CV - RRR without rub; Abd - soft currently nontender ; MS - FROM without deformity Medications and IVs Inpatient Medications Acetaminophen 100 ml @ 400 mls/hr Q6H IV Last administered on 08/13/17at 07:00 ; Start 08/11/17 at 19:00; Stop 08/13/17 at 07:51; Status DC Acetaminophen (Tylenol) 650 mg Q6H PRN PO PAIN 1-10 AND/OR FEVER >101F; Start 08/11/17 at 06:45 Albuterol/ Ipratropium (Duoneb Neb) 1 ampule Q4HR NEB PRN INH WHEEZING; Start 08/11/17 at 06:45 Bisacodyl (Dulcolax Supp) 10 mg DAILY PRN RECTAL SEVERE CONSITIPATION/ IF NPO; Start 08/11/17 at 06:45 Calcium Gluconate 2 gm/Sodium Chloride 120 ml @ 120 mls/hr ONCE ONCE IV Last administered on 08/12/17at 12:37; Start 08/12/17 at 11:00; Stop 08/12/17 at 11:59 ; Status DC Chlorhexidine Gluconate (Chlorhexidine 2% Cloth) 3 pack UNSCH PRN TOP HYGIENIC CARE; Start 08/11/17 at 06:45 Cyclobenzaprine HCl (Flexeril) 10 mg ONCE ONCE PO Last administered on at 04:10; Start 08/11/17 at 03:45; Stop 08/11/17 at 03:47; Status DC Dextrose (D50w (Vial) Inj) 50 ml UNSCH PRN IV PUSH HYPOGLYCEMIA-SEE COMMENTS; Start 08/11/17 at 06:45 Diatrizoate Meglum/ Diatrizoate Sod ( Gastroview Liq) 18 ml ONCE ONCE PO Last administered on 08/11/17at 15:34; Start 08/11/17 at 14:45; Stop 08/11/17 at 14: 46; Status DC Famotidine (Pepcid Inj) 20 mg Q12HR IV PUSH Last administered on 08/15/17at 08: 37; Start 08/11/17 at 09:00 Glucagon (Glucagon Inj) 1 mg UNSCH PRN OTHER HYPOGLYCEMIA-SEE COMMENTS; Start 08/11/17 at 06:45 Hydromorphone HCl (Dilaudid Pf Inj) 1 mg Q6HR PRN IV PUSH BREAKTHROUGH PAIN Last administered on 08/15/17at 12:32; Start 08/14/17 at 13:30 Insulin Aspart (NovoLOG SUPPLEMENTAL SCALE) 1 ACHS SLIDING SCALE SQ ; Start 08/11/17 at 08:00 Ketorolac Tromethamine (Toradol Inj) 30 mg ONCE ONCE IV PUSH Last administered on 08/11/17at 04:10; Start 08/11/17 at 03:45; Stop 08/11/17 at 03:47; Status DC Lactulose (Lactulose Liq) 30 ml DAILY PRN PO SEVERE CONSITIPATION/ IF PO; Start 08/11/17 at 06:45 Levothyroxine Sodium (Synthroid) 88 mcg DAILY PO Last administered on at 08:37; Start 08/12/17 at 09:00 Magnesium Hydroxide (Milk Of Magnshaye Liq) 30 ml Q12H PRN PO Mild constipation ; Start 08/11/17 at 06:45 Magnesium Oxide (Mag-Ox) 800 mg UNSCH PRN PO For Magnesium 1.2 - 1.6 mg/dL; Start 08/11/17 at 06:45; Stop 08/14/17 at 11:41; Status DC Magnesium Sulfate 2 gm/Sodium Chloride 100 ml @ 50 mls/hr UNSCH PRN IV For Magnesium 1.2 - 1.6 mg/dL; Start 08/11/17 at 06:45; Stop 08/14/17 at 11:41; Status DC Magnesium Sulfate 4 gm/Sodium Chloride 100 ml @ 50 mls/hr UNSCH PRN IV For Magnesium 0.9 - 1.1 mg/dL; Start 08/11/17 at 06:45; Stop 08/14/17 at 11:41; Status DC Miscellaneous Information SPECIFIC LAB TO BE DRAWN:VANCOMY... ONCE ONCE .XX ; Start 08/15/17 at 09:45; Stop 08/15/17 at 09:46; Status DC Morphine Sulfate (Morphine Inj) 2 mg ONCE ONCE IV PUSH Last administered on 08/11/17at 07:39; Start 08/11/17 at 07:45; Stop 08/11/17 at 07:46; Status DC Ondansetron HCl (Zofran Inj) 4 mg Q6H PRN IV PUSH NAUSEA OR VOMITING Last administered on 08/14/17at 01:18; Start 08/11/17 at 06:45 Oxycodone/ Acetaminophen (Percocet 7.5-325 Mg) 1 tab Q6H PRN PO PAIN SCALE 6 TO 10 Last administered on 08/15/17at 08:38; Start 08/13/17 at 08:00 Pharmacy Profile Note 0 ml @ 0 mls/hr UNSCH OTHER ; Start 08/11/17 at 16:45 Piperacillin Sod/ Tazobactam Sod 50 ml @ 100 mls/hr Q6H IV Last administered on 08/15/17at 02:00; Start 08/11/17 at 20:00 Potassium Phosphate (K-Phos) 2,000 mg UNSCH PRN PO/TUBE SEE LABEL COMMENTS; Start 08/11/17 at 06:45; Stop 08/14/17 at 11:41; Status DC Potassium Phosphate 30 mmol/ Sodium Chloride 260 ml @ 42 mls/hr UNSCH PRN IV SEE LABEL COMMENTS; Start 08/11/17 at 06:45; Stop 08/14/17 at 11:41; Status DC Potassium Bicarb/ Potassium Chloride (K-Lyte Cl Eff) 50 meq UNSCH PRN PO For Potassium 3.3 - 3.5 mEq/L Last administered on 08/12/17at 23:38; Start 08/11/17 at 06:45; Stop 08/14/17 at 11:41; Status DC Potassium Chloride 100 ml @ 50 mls/hr Q2H PRN IV For Potassium 3.3 - 3.5 mEq/L ; Start 08/11/17 at 06:45; Stop 08/14/17 at 11:41; Status DC Senna/Docusate Sodium (Yolanda-Colace) 1 tab BID PO ; Start 08/11/17 at 09:00 Sennosides (Senokot) 17.2 mg Q12H PRN PO Moderate constipation; Start 08/11/17 at 06:45 Sodium Chloride 1,000 ml @ 125 mls/hr Q8H IV ; Start 08/13/17 at 15:00; Stop at 23:21; Status DC Sodium Chloride (NS Flush) 2 ml BID IV FLUSH Last administered on 08/14/17at 21: 40; Start 08/11/17 at 09:00 Sodium Phosphate 30 mmol/Sodium Chloride 250 ml @ 42 mls/hr UNSCH PRN IV For Phosphorus < 2.5 mg/dL; Start 08/11/17 at 06:45; Stop 08/14/17 at 11:41; Status DC Vancomycin HCl 1500 mg/Sodium Chloride 515 ml @ 257.5 mls/ hr Q12H IV Last administered on 08/14/17at 21:42; Start 08/13/17 at 22:00 Assessment and Plan Problem List: (1) Anemia ICD Codes: D64.9 - Anemia, unspecified Status: Acute Plan: GI W/U in progress Assessment and Plan anemia pseudocyst history of pancreatitus will folow hgb and consider transfer to tertiary center should blood loss source not be identified Problem Qualifiers (1) Anemia: Qualified Codes: D64.9 - Anemia, unspecified Andrew Alonso DO Aug 15, 2017 14:46
[2017-08-15] MEDS: VANCOMYCIN 1,500 MG/NS 500 ML IV SCH ×4 (16:04→23:12)
[2017-08-15] MEDS: SODIUM CHLORIDE 0.9% FLUSH 10 ML FLUSH IV FLUSH SCH (21:00)
[2017-08-15 22:48] LABS: AUTOMATED NEUTROPHIL # 3.1 TH/MM3 (1.8-7.7); BASOPHIL % 0.9 % (0.0-2.0); EOSINOPHIL # 0.5 TH/MM3 (0-0.4); EOSINOPHIL % 7.9 % (0.0-4.0); HEMATOCRIT 33.2 % (39.0-51.0); HEMOGLOBIN 10.1 GM/DL (13.0-17.0); LYMPH % 22.6 % (9.0-44.0); LYMPHOCYTE # 1.3 TH/MM3 (1.0-4.8); MEAN CELL VOLUME 71.4 FL (80.0-100.0); MEAN CORPUSCULAR HEMOGLOBIN 21.6 PG (27.0-34.0); MEAN CORPUSCULAR HGB CONC 30.2 % (32.0-36.0); MEAN PLATELET VOLUME 7.2 FL (7.0-11.0); MONO % 13.4 % (0.0-8.0); MONOCYTE # 0.8 TH/MM3 (0-0.9); NEUT % 55.2 % (16.0-70.0); PLATELET COUNT 254 TH/MM3 (150-450); RED BLOOD COUNT 4.66 MIL/MM3 (4.50-5.90); RED CELL DISTRIBUTION WIDTH 24.3 % (11.6-17.2); WHITE BLOOD COUNT 5.7 TH/MM3 (4.0-11.0)
[2017-08-16] VITALS (10 sets, daily range): BP systolic 95–115; BP diastolic 53–74; PULSE 53–71; RESP 16–18; TEMP 96.3–97.5; O2SAT 92–99
[2017-08-16] MEDS: PIPERACILLIN/TAZ 3.375 GM VIAL 3.375 GM in SODIUM CHLORIDE 0.9% INJ 100 ML IV SCH ×4 (03:28→23:08)
[2017-08-16] MEDS: oxyCODONE/ACETAMINOPHEN 7.5 MG/325 MG TAB PO PRN ×5 (03:36→21:37)
[2017-08-16] MEDS: CHLORHEXIDINE GLUCONATE 2 % 1 PACK (2 CLOTHS) TOP SCH (03:40)
[2017-08-16] MEDS: HYDROmorphone HCL PF 2 MG/ML VIAL IV PUSH PRN (06:18)
[2017-08-16] MEDS: VANCOMYCIN 1,500 MG/NS 500 ML IV SCH ×4 (06:18→18:00)
[2017-08-16] MEDS: INSULIN ASPART SUPPLEMENTAL SCALE SQ SCH ×3 (08:00→20:00)
[2017-08-16] MEDS: FAMOTIDINE 20 MG/2 ML VIAL IV PUSH SCH ×2 (08:29→19:59)
[2017-08-16] MEDS: LEVOTHYROXINE SODIUM 88 MCG TAB PO SCH (08:29)
[2017-08-16] MEDS: SODIUM CHLORIDE 0.9% FLUSH 10 ML FLUSH IV FLUSH SCH ×2 (08:30→20:01)
[2017-08-16] MEDS: DOCUSATE SODIUM 50 MG/SENNA 8.6 MG TAB PO SCH ×2 (08:30→19:59)
--- NOTE | 2017-08-16 13:33 | HHI.PR ---
Subjective Remarks Pain improved and HG up slightly. Objective Vital Signs Date Time Temp Pulse Resp B/P (MAP) Pulse Ox O2 Delivery O2 Flow Rate FiO2 08/16/17 12:00 96.8 55 16 102/60 (74) 97 08/16/17 10:14 97 08/16/17 08:00 96.3 71 16 115/74 (88) 97 08/16/17 04:42 96.8 66 16 115/60 (78) 92 08/16/17 03:38 96.7 53 18 97/61 (73) 97 08/16/17 00:46 96.9 65 16 95/59 (71) 94 08/16/17 00:29 54 08/15/17 20:09 60 08/15/17 20:00 98.0 55 16 110/58 (75) 96 08/15/17 16:00 96.7 57 17 117/68 (84) 100 I/O 08/15/17 08/15/17 08/15/17 08/16/17 08/16/17 08/16/17 07:00 15:00 23:00 07:00 15:00 23:00 Intake Total 615 ml 1550 ml 615 ml Output Total 1200 ml 600 ml Balance 615 ml 1550 ml -585 ml -600 ml Intake Oral 1500 ml IV Total 615 ml 50 ml 615 ml Output Urine Total 1200 ml 600 ml # Voids 12 2 # Bowel Movements 2 Result Diagram: 08/15/17 2215 08/14/17 0712 Imaging Last Impressions GI Bleed Scan Nuclear Medicine 08/12/17 0000 Signed Impressions: Service Date/Time: Saturday, August 12, 2017 14:15 - CONCLUSION: Negative for significant gastrointestinal hemorrhage. Correlation to exclude rectosigmoid hemorrhage. Hunter Chirinos MD FACR Abdomen CT 08/12/17 0000 Signed Impressions: Service Date/Time: Saturday, August 12, 2017 10:05 - CONCLUSION: Stable CT scan of the upper abdomen. I do not see an etiology for the patient's acute blood loss. Hunter Chirinos MD FACRADDENDUM: I was asked to review the above. I do not see a source for the patient's ongoing blood loss as described in the above report. In addition, multiple loculated fluid collections beginning in the upper retroperitoneum and extending through what I believe is the diaphragmatic hiatus may represent mature pseudocyst. This is associated with a pericardial effusion and bilateral pleural effusions and regional atelectasis. 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 Jaspreet Barboza MD CT Angiography 08/11/17 0412 Signed Impressions: Service Date/Time: Friday, August 11, 2017 04:37 - CONCLUSION: 1. No evidence of pulmonary embolism. 2. Large pericardial effusion. José Miguel Hassan MD Chest X-Ray 08/11/17 0000 Signed Impressions: Service Date/Time: Friday, August 11, 2017 03:51 - CONCLUSION: 1. Cardiomegaly 2. Left lower lobe atelectasis versus pneumonia. 3. Small right effusion 4. Abnormal right heart border is above. CT scan is recommended for further evaluation if clinically indicated. José Miguel Hassan MD Abdomen/Pelvis CT 08/11/17 0000 Signed Impressions: Service Date/Time: Friday, August 11, 2017 17:18 - CONCLUSION: 1. Large complex loculated appearing fluid collections along the base of the heart and in the upper central abdomen. Differential diagnosis includes loculated pericardial fluid, abscess and hematoma. Tumor is also a consideration. 2. There is a small amount of fluid in the posterior pelvis. 3. Nonspecific bowel gas pattern most consistent with an ileus. 4. Small bilateral pleural effusions with consolidation in both posterior lung bases. Harsha Garcia MD Objective Remarks HEENT - AT and NC; Resp - CTA; CV - Without rub or gallop; Abd - Active BS and nontender to palpation; Neuro - alert and oriented Medications and IVs Current Medications Medications (Trade) Dose Ordered Sig/Sophie Route Start Time Stop Time Status Last Admin (NS Flush) 2 ml UNSCH PRN IV FLUSH 08/11/17 06:45 (NS Flush) 2 ml BID IV FLUSH 08/11/17 09:00 08/14/17 21:40 (Tylenol) 650 mg Q6H PRN PO 08/11/17 06:45 (Pepcid Inj) 20 mg Q12HR IV PUSH 08/11/17 09:00 08/16/17 08:29 (Zofran Inj) 4 mg Q6H PRN IV PUSH 08/11/17 06:45 08/14/17 01:18 (Duoneb Neb) 1 ampule Q4HR NEB PRN INH 08/11/17 06:45 Miscellaneous Information 1 Q361D XX 08/11/17 06:45 08/11/17 06:45 (Chlorhexidine 2% Cloth) 3 pack Taper DAILY@04 TOP 08/12/17 04:00 08/08/18 03:59 08/13/17 04:00 (Chlorhexidine 2% Cloth) 3 pack UNSCH PRN TOP 08/11/17 06:45 (Yolanda-Colace) 1 tab BID PO 08/11/17 09:00 (Milk Of Magnesia Liq) 30 ml Q12H PRN PO 08/11/17 06:45 (Senokot) 17.2 mg Q12H PRN PO 08/11/17 06:45 (Dulcolax Supp) 10 mg DAILY PRN RECTAL 08/11/17 06:45 (Lactulose Liq) 30 ml DAILY PRN PO 08/11/17 06:45 (D50w (Vial) Inj) 50 ml UNSCH PRN IV PUSH 08/11/17 06:45 (Glucagon Inj) 1 mg UNSCH PRN OTHER 08/11/17 06:45 (NovoLOG SUPPLEMENTAL SCALE) 1 ACHS SLIDING SCALE SQ 08/11/17 08:00 (Synthroid) 88 mcg DAILY PO 08/12/17 09:00 08/16/17 08:29 Pharmacy Profile Note 0 ml @ 0 mls/hr UNSCH OTHER 08/11/17 16:45 Vancomycin HCl 1500 mg/Sodium Chloride 515 ml @ 257.5 mls/ hr Q8H IV 08/15/17 23:00 08/16/17 06:18 Miscellaneous Information SPECIFIC LAB TO BE RAMÓN... 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
[2017-08-16] MEDS ORDERED: PHARMACY ORDERED LAB ONE (14:45)
--- NOTE | 2017-08-16 15:52 | HHI.GIFU ---
GI Follow-up Note Consult Follow-up Subjective: Patient laying in in bed and states his shoulder pain and chest pain are better. He is happy his hemoglobin is up to 10.1. He is tolerating his diet without nausea or vomiting or abdominal pain Objective: PHYSICAL EXAMINATION: Vitals signs stable No fever HEENT: no jaundice. Throat is clear. NECK: Neck is supple, no JVD, no lymphadenopathy. CHEST: Chest is clear to auscultation and percussion. CARDIAC: Regular rate and rhythm with no murmur gallop or rubs. ABDOMEN: Soft, nondistended, nontender; no hepatosplenomegaly; bowel sounds are present in all four quadrants. VICE PRESIDENT FOR PHILANTHROPY: No focal deficits; alert and oriented times three. Available Data (labs, X- Rays, Procedues) : hemoglobin 10.1 ASSESSMENT/PLAN: 1. Anemia - he had brown heme-negative stools (Iron def)-past w/u this summer was negative. hemoglobin now 10.1 2. Hypotension-resolved 3. Abnormal CAT scan-?splenic vein thrombosis. ? Pancreatitis/cyst 4. History of pancreatitis and pleural effusions. RECOMMENDATIONS 1.patient states that a transfer is in the works to a tertiary care center It was a pleasure seeing Bob Manuel. Thank you for this consult. Entered by: Jameson Mcbride MD Aug 16, 2017 15:52
[2017-08-17] VITALS (9 sets, daily range): BP systolic 96–103; BP diastolic 54–60; PULSE 46–65; RESP 16–18; TEMP 96.9–98.3; O2SAT 92–100
[2017-08-17] MEDS: CHLORHEXIDINE GLUCONATE 2 % 1 PACK (2 CLOTHS) TOP SCH (04:00)
[2017-08-17] MEDS: LEVOTHYROXINE SODIUM 88 MCG TAB PO SCH (04:12)
[2017-08-17] MEDS: oxyCODONE/ACETAMINOPHEN 7.5 MG/325 MG TAB PO PRN ×5 (04:12→21:41)
[2017-08-17] MEDS: PIPERACILLIN/TAZ 3.375 GM VIAL 3.375 GM in SODIUM CHLORIDE 0.9% INJ 100 ML IV SCH (04:12)
[2017-08-17] MEDS: VANCOMYCIN 1,500 MG/NS 500 ML IV SCH ×6 (05:42→22:50)
[2017-08-17] MEDS: INSULIN ASPART SUPPLEMENTAL SCALE SQ SCH ×4 (08:00→20:43)
[2017-08-17 08:07] LABS: CREATININE 0.87 MG/DL (0.60-1.30)
[2017-08-17] MEDS: PIPERACILLIN/TAZ 3.375 GM VIAL 3.375 GM in SODIUM CHLORIDE 0.9% INJ 50 ML IV SCH ×3 (08:15→19:17)
[2017-08-17] MEDS: FAMOTIDINE 20 MG/2 ML VIAL IV PUSH SCH ×2 (08:16→19:17)
[2017-08-17] MEDS: SODIUM CHLORIDE 0.9% FLUSH 10 ML FLUSH IV FLUSH SCH ×2 (08:17→19:17)
[2017-08-17] MEDS: DOCUSATE SODIUM 50 MG/SENNA 8.6 MG TAB PO SCH ×2 (08:18→20:42)
--- NOTE | 2017-08-17 13:27 | HHI.PR ---
Subjective Remarks No complaints in bed, ants to go home. Objective Vital Signs Date Time Temp Pulse Resp B/P (MAP) Pulse Ox O2 Delivery O2 Flow Rate FiO2 08/17/17 12:00 97.3 52 18 103/58 (73) 94 08/17/17 08:00 97.9 49 16 97/55 (69) 92 08/17/17 04:07 46 08/17/17 04:00 97.3 50 16 100/54 (69) 98 08/17/17 00:25 96.9 54 16 96/60 (72) 100 08/17/17 00:05 50 08/16/17 21:39 99 21 08/16/17 20:00 68 08/16/17 20:00 97.1 56 16 95/53 (67) 97 08/16/17 16:00 97.5 57 17 98/68 (78) 96 I/O 08/16/17 08/16/17 08/16/17 08/17/17 08/17/17 08/17/17 06:59 14:59 22:59 06:59 14:59 22:59 Intake Total 615 ml 1800 ml 715 ml Output Total 1200 ml 600 ml Balance -585 ml -600 ml 1800 ml 715 ml Intake Oral 1800 ml IV Total 615 ml 715 ml Output Urine Total 1200 ml 600 ml # Voids 2 15 8 # Bowel Movements 2 Result Diagram: 08/15/17 2215 08/17/17 0600 Objective Remarks hysical Exam GENERAL: This is a well-nourished, well-developed in no apparent distress. SKIN: No rashes, ecchymoses or lesions. Cool and dry. HEAD: Atraumatic. Normocephalic. No temporal or scalp tenderness. EYES: Pupils equal round and reactive. Extraocular motions intact. No scleral icterus. No injection or drainage. ENT: Nose without bleeding, purulent drainage or septal hematoma. Throat without erythema, tonsillar hypertrophy or exudate. Uvula midline. Airway patent. NECK: Trachea midline. No JVD or lymphadenopathy. Supple, nontender, no meningeal signs. CARDIOVASCULAR: RRR RESPIRATORY: CTA. GASTROINTESTINAL: Abdomen soft, non-tender, nondistended. No hepato-splenomegaly , or palpable masses. No guarding. MUSCULOSKELETAL: Extremities without clubbing, cyanosis, or edema. Splint is present on the LLE. NEUROLOGICAL: Alert oriented no distress Laboratory Medications and IVs Current Medications Medications (Trade) Dose Ordered Sig/[place] Route Start Time Stop Time Status Last Admin (NS Flush) 2 ml UNSCH PRN IV FLUSH 08/11/17 06:45 (NS Flush) 2 ml BID IV FLUSH 08/11/17 09:00 08/16/17 20:01 (Tylenol) 650 mg Q6H PRN PO 08/11/17 06:45 (Pepcid Inj) 20 mg Q12HR IV PUSH 08/11/17 09:00 08/17/17 08:16 (Zofran Inj) 4 mg Q6H PRN IV PUSH 08/11/17 06:45 08/14/17 01:18 (Duoneb Neb) 1 ampule Q4HR NEB PRN INH 08/11/17 06:45 Miscellaneous Information 1 Q361D XX 08/11/17 06:45 08/11/17 06:45 (Chlorhexidine 2% Cloth) Taper DAILY@04 TOP 08/12/17 04:00 08/08/18 03:59 08/13/17 04:00 (Chlorhexidine 2% Cloth) 3 pack UNSCH PRN TOP 08/11/17 06:45 (Yolanda-Colace) 1 tab BID PO 08/11/17 09:00 (Milk Of Magnesia Liq) 30 ml Q12H PRN PO 08/11/17 06:45 (Senokot) 17.2 mg Q12H PRN PO 08/11/17 06:45 (Dulcolax Supp) 10 mg DAILY PRN RECTAL 08/11/17 06:45 (Lactulose Liq) 30 ml DAILY PRN PO 08/11/17 06:45 (D50w (Vial) Inj) 50 ml UNSCH PRN IV PUSH 08/11/17 06:45 (Glucagon Inj) 1 mg UNSCH PRN OTHER 08/11/17 06:45 (NovoLOG SUPPLEMENTAL SCALE) 1 ACHS SLIDING SCALE SQ 08/11/17 08:00 Pharmacy Profile Note 0 ml @ 0 mls/hr UNSCH OTHER 08/11/17 16:45 (Percocet 7.5-325 Mg) 1 tab Q4H PRN PO 08/16/17 07:45 08/17/17 13:01 Piperacillin Sod/ Tazobactam Sod 3.375 gm/Sodium Chloride 50 ml @ 100 mls/hr Q6H IV 08/17/17 08:00 08/17/17 13:01 (Synthroid) 88 mcg DAILY@0600 PO 08/17/17 06:00 08/17/17 04:12 Miscellaneous Information SPECIFIC LAB TO BE DRAWN:VANCO TROUGH DATE TO BE DR... ONCE ONCE .XX 08/17/17 22:45 08/17/17 22:46 Vancomycin HCl 1500 mg/Sodium Chloride 515 ml @ 257.5 mls/ hr Q8H IV 08/17/17 07:00 08/17/17 13:01 Assessment and Plan Problem List: (1) Anemia ICD Codes: D64.9 - Anemia, unspecified Status: Acute (2) Pancreatic pseudocyst ICD Codes: K86.3 - Pseudocyst of pancreas Status: Chronic (3) Hypotension due to blood loss ICD Codes: I95.89 - Other hypotension (4) Hypothyroidism ICD Codes: E03.9 - Hypothyroidism, unspecified Assessment and Plan Wants to go home VSS, HGB stable no sign of active bleeding. Consult sent to [facility] in [place] for further testing Once arrangements made with follow up apt, likely D?C home if cleared with attending. Problem Qualifiers (1) Anemia: Qualified Codes: D64.9 - Anemia, unspecified Carola Frazier Aug 17, 2017 13:27
--- NOTE | 2017-08-17 17:57 | HHI.GIFU ---
GI Follow-up Note Consult Follow-up Subjective: patient was seen earlier this morning. patient feeling well. Tolerating diet without overt GI bleeding. His shoulder pain is also better. No abdominal pain Objective: PHYSICAL EXAMINATION: Vitals signs stable No fever NECK: Neck is supple, no JVD, no lymphadenopathy. CHEST: Chest is clear to auscultation and percussion. CARDIAC: Regular rate and rhythm with no murmur gallop or rubs. ABDOMEN: Soft, nondistended, nontender; no hepatosplenomegaly; bowel sounds are present in all four quadrants. EXTREMITIES: No edema. SKIN: Normal; no rash; no jaundice. MILK PICKUP DRIVER: No focal deficits; alert and oriented times three. Available Data (labs, X- Rays, Procedures) : ASSESSMENT/PLAN: 1. Anemia - he had brown heme-negative stools (Iron def)-past w/u this summer was negative. Hgb stable although no hemoglobin done today 2. Hypotension-resolved 3. Abnormal CAT scan-?splenic vein thrombosis. ? Pancreatitis/cyst 4. History of pancreatitis and pleural effusions. RECOMMENDATIONS 1.discussed with PCP. He has made contact with a tertiary care center and we are awaiting their response. It was a pleasure seeing Bob Manuel. Thank you for this consult. Entered by: Jameson Mcbride MD Aug 17, 2017 17:57
[2017-08-17] MEDS ORDERED: PHARMACY ORDERED LAB ONE (22:45)
[2017-08-18] VITALS: BP 102/61; PULSE 46; PULSE 66; RESP 18; TEMP 97.8; O2SAT 95
[2017-08-18] MEDS: PIPERACILLIN/TAZ 3.375 GM VIAL 3.375 GM in SODIUM CHLORIDE 0.9% INJ 50 ML IV SCH ×3 (02:01→14:00)
[2017-08-18] MEDS: oxyCODONE/ACETAMINOPHEN 7.5 MG/325 MG TAB PO PRN ×5 (02:02→15:37)
[2017-08-18 03:53] VITALS: PULSE 49
[2017-08-18 04:00] VITALS: BP 99/55; PULSE 51; RESP 18; TEMP 96.8; O2SAT 95
[2017-08-18] MEDS: CHLORHEXIDINE GLUCONATE 2 % 1 PACK (2 CLOTHS) TOP SCH (04:00)
[2017-08-18] MEDS: LEVOTHYROXINE SODIUM 88 MCG TAB PO SCH (05:27)
[2017-08-18] MEDS: FAMOTIDINE 20 MG/2 ML VIAL IV PUSH SCH (07:08)
[2017-08-18] MEDS: SODIUM CHLORIDE 0.9% FLUSH 10 ML FLUSH IV FLUSH SCH (07:08)
[2017-08-18] MEDS: DOCUSATE SODIUM 50 MG/SENNA 8.6 MG TAB PO SCH (07:10)
[2017-08-18] MEDS: INSULIN ASPART SUPPLEMENTAL SCALE SQ SCH ×2 (07:10→11:37)
[2017-08-18 08:00] VITALS: BP 110/60; PULSE 52; RESP 17; TEMP 98.7; O2SAT 96
--- NOTE | 2017-08-18 10:19 | HHI.GIFU ---
GI Follow-up Note Consult Follow-up Subjective: Patient laying in bed and doing well. no N/V/abd pain Objective: PHYSICAL EXAMINATION: Vitals signs stable No fever CHEST: Chest is clear to auscultation and percussion. CARDIAC: Regular rate and rhythm with no murmur gallop or rubs. ABDOMEN: Soft, nondistended, nontender; no hepatosplenomegaly; bowel sounds are present in all four quadrants. EXTREMITIES: No clubbing, cyanosis, or edema. SKIN: no jaundice. WRAPPER REWINDER: alert and oriented times three. Available Data (labs, X- Rays, Procedures) : ASSESSMENT/PLAN: 1. Anemia -stable . stools heme negative 2. Hypotension-resolved 3. Abnormal CAT scan-?splenic vein thrombosis. ? Pancreatitis/cyst 4. History of pancreatitis and pleural effusions. RECOMMENDATIONS 1.discussed with PCP. He has made contact with a tertiary care center and we are awaiting their response. 2. pt to be D/c today 3. will sign off. ROV with us as an outpt It was a pleasure seeing Bob Manuel. Thank you for this consult. Entered by: Jameson Mcbride MD Aug 18, 2017 10:19
[2017-08-18 10:43] LABS: AUTOMATED NEUTROPHIL # 2.7 TH/MM3 (1.8-7.7); BASOPHIL # 0.1 TH/MM3 (0-0.2); BASOPHIL % 1.6 % (0.0-2.0); EOSINOPHIL # 0.4 TH/MM3 (0-0.4); EOSINOPHIL % 8.6 % (0.0-4.0); HEMATOCRIT 31.5 % (39.0-51.0); HEMOGLOBIN 9.7 GM/DL (13.0-17.0); LYMPH % 18.5 % (9.0-44.0); LYMPHOCYTE # 0.8 TH/MM3 (1.0-4.8); MEAN CELL VOLUME 71.7 FL (80.0-100.0); MEAN CORPUSCULAR HGB CONC 30.7 % (32.0-36.0); MEAN PLATELET VOLUME 7.1 FL (7.0-11.0); MONO % 10.9 % (0.0-8.0); MONOCYTE # 0.5 TH/MM3 (0-0.9); NEUT % 60.4 % (16.0-70.0); PLATELET COUNT 222 TH/MM3 (150-450); RED BLOOD COUNT 4.39 MIL/MM3 (4.50-5.90); RED CELL DISTRIBUTION WIDTH 24.8 % (11.6-17.2); WHITE BLOOD COUNT 4.5 TH/MM3 (4.0-11.0)
[2017-08-18 12:00] VITALS: BP 113/66; PULSE 55; RESP 18; TEMP 97.4; O2SAT 96
[2017-08-18] MEDS ORDERED: VANCOMYCIN INJ 1,250 MG in SODIUM CHLOR 0.9% 250 ML INJ 250 ML IV SCH (14:00)
--- NOTE | 2017-08-18 21:12 | HHI.DS ---
Discharge Summary Admission Date Aug 11, 2017 at 06:05 Admitting Diagnosis Anemia, pericardial effusion (1) Leukocytosis Diagnosis: Principal ICD Codes: D72.829 - Elevated white blood cell count, unspecified (2) Hypothyroidism Diagnosis: Secondary ICD Codes: E03.9 - Hypothyroidism, unspecified (3) Tobacco abuse disorder Diagnosis: Secondary ICD Codes: Z72.0 - Tobacco use (4) Depression Diagnosis: Secondary ICD Codes: F32.9 - Major depressive disorder, single episode, unspecified (5) Tetrahydrocannabinol (THC) use disorder, mild, abuse Diagnosis: Secondary ICD Codes: F12.10 - Cannabis abuse, uncomplicated CBC/BMP: 08/18/17 1015 08/17/17 0600 Significant Findings Laboratory Tests Test 08/15/17 22:15 08/16/17 10:54 08/16/17 19:40 08/17/17 06:00 Hemoglobin 10.1 GM/DL (13.0-17.0) Hematocrit 33.2 % (39.0-51.0) Mean Corpuscular Volume 71.4 FL (80.0-100.0) Mean Corpuscular Hemoglobin 21.6 PG (27.0-34.0) Mean Corpuscular Hemoglobin Concent 30.2 % (32.0-36.0) Red Cell Distribution Width 24.3 % (11.6-17.2) Monocytes (%) (Auto) 13.4 % (0.0-8.0) Eosinophils (%) (Auto) 7.9 % (0.0-4.0) Eosinophils # (Auto) 0.5 TH/MM3 (0-0.4) Vancomycin Level Trough 14.3 MCG/ML (5.0-10.0) Test 08/17/17 22:45 08/18/17 10:15 Vancomycin Level Trough 20.9 MCG/ML (5.0-10.0) Red Blood Count 4.39 MIL/MM3 (4.50-5.90) Hemoglobin 9.7 GM/DL (13.0-17.0) Hematocrit 31.5 % (39.0-51.0) Mean Corpuscular Volume 71.7 FL (80.0-100.0) Mean Corpuscular Hemoglobin 22.0 PG (27.0-34.0) Mean Corpuscular Hemoglobin Concent 30.7 % (32.0-36.0) Red Cell Distribution Width 24.8 % (11.6-17.2) Monocytes (%) (Auto) 10.9 % (0.0-8.0) Eosinophils (%) (Auto) 8.6 % (0.0-4.0) Lymphocytes # (Auto) 0.8 TH/MM3 (1.0-4.8) PE at Discharge hysical Exam GENERAL: This is a well-nourished, well-developed in no apparent distress. SKIN: No rashes, ecchymoses or lesions. Cool and dry. HEAD: Atraumatic. Normocephalic. No temporal or scalp tenderness. EYES: Pupils equal round and reactive. Extraocular motions intact. No scleral icterus. No injection or drainage. ENT: Nose without bleeding, purulent drainage or septal hematoma. Throat without erythema, tonsillar hypertrophy or exudate. Uvula midline. Airway patent. NECK: Trachea midline. No JVD or lymphadenopathy. Supple, nontender, no meningeal signs. CARDIOVASCULAR: RRR RESPIRATORY: CTA. GASTROINTESTINAL: Abdomen soft, non-tender, nondistended. No hepato-splenomegaly , or palpable masses. No guarding. MUSCULOSKELETAL: Extremities without clubbing, cyanosis, or edema. Splint is present on the LLE. NEUROLOGICAL: Alert oriented no distress Laboratory Hospital Course presented to [facility] on 08/11/17 for shoulder pain, he was found to have HGB 6.6. He has a history of anemia requiring transfusions at [facility] in past, with negative GI work up. CXR done indicating CT . CT chest showed Pericardial effusion. He was then transferred to [facility] for cardiology consult. Echo done showed normal EF, and small effusion. CT of abdomen showed Pseudocyst. His hgb was monitored and during his stay required 4 units of PRBC. He was seen by GI, no source of bleed identified. Hematology/ oncology consulted as well. He underwent GI Bleed scan on 08/12, with no findings. During his stay No source of active bleed was identified. Arrangement made to follow up at [facility] after d/c. Records sent per comanagement to expedite quicker apt. Pt Condition on Discharge: Stable Discharge Disposition: Discharge Home Discharge Instructions DIET: Follow Instructions for: As Tolerated, No Restrictions Activities you can perform: Regular-No Restrictions Carola Frazier Aug 18, 2017 21:12
[2017-08-19] MEDS ORDERED: PHARMACY ORDERED LAB ONE (13:45)
== END 2017-08-18 16:06 | disposition home or self-care (01) | DRG 314 ==
LOC: PHED 03:24 → PHEDA 06:05 → HCVI 08:22 → N07A 08-14 11:08
PROVIDERS: ADMIT Anesthesiology; ATTEND Anesthesiology
PROC: 30233N1 Transfusion of Nonautologous Red Blood Cells into Peripheral Vein, Percutaneous Approach (ICD-10-PCS; principal; 2017-08-11)
DX: I31.3 Pericardial effusion (noninflammatory) (principal); K66.1 Hemoperitoneum; J90 Pleural effusion, not elsewhere classified; K86.3 Pseudocyst of pancreas; I82.890 Acute embolism and thrombosis of other specified veins; K70.30 Alcoholic cirrhosis of liver without ascites; K56.7 Ileus, unspecified; D62 Acute posthemorrhagic anemia; K85.20 Alcohol induced acute pancreatitis without necrosis or infection; J98.11 Atelectasis; D50.9 Iron deficiency anemia, unspecified; F10.21 Alcohol dependence, in remission; E03.9 Hypothyroidism, unspecified; K21.9 Gastro-esophageal reflux disease without esophagitis; M75.22 Bicipital tendinitis, left shoulder; M75.21 Bicipital tendinitis, right shoulder; I86.8 Varicose veins of other specified sites; R00.1 Bradycardia, unspecified; I45.10 Unspecified right bundle-branch block; F12.10 Cannabis abuse, uncomplicated; F17.210 Nicotine dependence, cigarettes, uncomplicated; F32.9 Major depressive disorder, single episode, unspecified; F41.9 Anxiety disorder, unspecified; Z80.0 Family history of malignant neoplasm of digestive organs
CPT/HCPCS: 36430; 71046; 71275; 74160; 74177; 76937; 78278; 80048; 80053; 80202; 80307; 81001; 82533; 82550; 82565; 82607; 82668; 82728; 82746; 82747; 82948; 83010; 83020; 83021; 83540; 83550; 83605; 83615; 83690; 83735; 84100; 84155; 84165; 84439; 84443; 84484; 85014; 85018; 85025; 85044; 85384; 85610; 85652; 85730; 86038; 86140; 86430; 86850; 86880; 86900; 86901; 86920; 87015; 87040; 87641; 87804; 93005; 93306; 93308; 94150; 96361; 96374; 96375; A9560; J0131; J0171; J0461; J0610; J1170; J1642; J1885; J2270; J2405; J2543; J3370; J7030; J7040; J7050; P9016; Q9963; Q9967